=== PATIENT | female | born 1955 | race Caucasian/White ===

== ENCOUNTER → 2018-07-28 13:52 | Outpatient (CLI) | payer BC, SELFPAY ==
--- NOTE | 2018-07-28 13:59 | XR_ITS ---
XR DEXA axial skeleton HISTORY: ITS.REASON: POST MENOPAUSAL ORDERING PHYSICIAN: Tha Mai MD PATIENT AGE: 62 years COMPARISON: 02/27/2016 FINDINGS: The BMD measured at the Left femoral neck is 0.853 g/cm squared with a T score of -1.3. This is considered Osteopenic according to the World Health Organization criteria. Fracture risk is Moderate. Treatment is advised. L1 L4 density has a T score of -1.1 consistent with osteopenia. The lumbar density has increased by 0.6% in the hip density has increased by 2.7% compared to 02/27/2016. IMPRESSION: Osteopenia with moderate fracture risk. Treatment is advised. Recommend follow-up exam in 2 years
== END ==
PROVIDERS: PCP Internal Medicine Adolescent Medicine; Visit Provider Internal Medicine Adolescent Medicine
DX: Z13.820 Encounter for screening for osteoporosis (principal); M81.0 Age-related osteoporosis without current pathological fracture
CPT/HCPCS: 77080

== ENCOUNTER → 2020-02-12 09:18 | Outpatient (CLI) | payer BC, SELFPAY ==
--- NOTE | 2020-02-12 09:21 | XR_ITS ---
PROCEDURE: XR DEXA AXIAL SKELETON CLINICAL HISTORY: POST MENOPAUSAL COMPARISON: No exams were available for comparison FINDINGS: The right hip BMD is 0.709 with a t-score of -1.3. The left hip BMD is 0.651 with a t-score of -1.8. The lumbar spine BMD is 0.869 with a t-score of -1.6. IMPRESSION: This patient is considered osteopenic according to the World Health Organization criteria. Bone density is between 10 and 25 percent below young normal . Fracture risk is moderate. Treatment is advised. Based on these results of follow-up exam is recommended in 2 years Dictated by: Godwin Meadows MD 02/12/2020 22:18 Electronically signed by Godwin Meadows MD in [place] 02/13/2020 07:56
== END ==
PROVIDERS: PCP Internal Medicine Adolescent Medicine; Visit Provider Internal Medicine Adolescent Medicine
DX: Z13.820 Encounter for screening for osteoporosis (principal); Z78.0 Asymptomatic menopausal state
CPT/HCPCS: 77080

== ENCOUNTER → 2020-05-07 08:02 | Outpatient (POV) | payer BC, SELFPAY | PROVIDERS: Visit Provider Dermatology | DX: Z00.00 Encounter for general adult medical examination without abnormal findings (principal) ==

== ENCOUNTER 2021-03-21 19:41 | Emergency (ER) | payer BC, SELFPAY ==
[2021-03-21 19:53] VITALS: BP 132/57; PULSE 93; RESP 20; TEMP 36.9; O2SAT 98; BMI 27.9
[2021-03-21 20:00] VITALS: BP 129/71; PULSE 99; O2SAT 94
--- NOTE | 2021-03-21 20:17 | HMH.EDGENADL ---
ED Disposition Clinical Impression: Epistaxis Disposition: Home, Self-Care Condition on Discharge: Good Instructions: DI for Nosebleed Referrals: Tha Mai MD [Primary Care Provider] - - Critical Care Critical Care Time: No Attestation: On 03/21/21, the high probability of a clinically significant, sudden or life threatening deterioration of the following system(s) required my full and direct attention, intervention and personal management. The time I documented below is in addition to time spent performing reported procedures but includes the following listed in this critical care notation. Medical Decision Making - Marco Inquiry Pt receiving controlled substance: No Vital Signs: 03/21/21 19:53 03/21/21 20:00 03/21/21 20:29 Temperature 98.5 F Temperature Source Oral Pulse Rate 99 H 75 Pulse Rate [Right] 93 H Respiratory Rate 20 17 Blood Pressure 129/71 129/71 Blood Pressure [Right Arm] 132/57 L Blood Pressure Mean 92 Blood Pressure Mean [Right Arm] 82 Blood Pressure Source Automatic Cuff Blood Pressure Source [Right Arm] Automatic Cuff Blood Pressure Position Supine Blood Pressure Position [Right Arm] Sitting 02 Sat by Pulse Oximetry 98 94 L 95 Oxygen Delivery Method Room Air Room Air Orders (Tests/Meds): ED MEDICATIONS Discontinued Medications Generic Name Dose Route Start Last Admin Trade Name Freq PRN Reason Stop Dose Admin Oxymetazoline HCl 1 ml 03/21/21 20:05 03/21/21 20:07 Oxymetazoline Nasal [place] 0.05% 15ml NS 03/21/21 20:06 1 ml ONCE ONE Administration Medical Decision Narrative: This patient is a 65-year-old female who presents to the emergency department with epistaxis. Only medical problem is asthma he has never had a nosebleed in the past. Bleeding is easy to control with direct pressure. The patient is hemodynamically stable and well-appearing. She is protecting her airway. She was given 2 sprays of Afrin in each nostril. Served in the emergency department for about 1 hour. On reassessment she had no more bleeding and felt comfortable with discharge. She has been walking around. She was given Afrin to go home with and encouraged to use 2 more sprays before going to bed. She will follow-up with her primary care doctor tomorrow and was given return precautions if the bleeding returns. She lives near the hospital. General Adult HPI - General Chief complaint: Epistaxis Stated complaint: nose bleed 1914 Time Seen by Provider: 03/21/21 20:08 Mode of Arrival: Ambulatory Source of Information: Patient Limitations: No Limitations Description of Symptoms (Recalled from ER Triage Doc. by RN): Pt states she has had a sinus H/A all day and about 30 minutes ago her nose started bleeding and wouldn't stop. Pt denies blood thinners or trauma to her nose. - History of Present Illness HPI narrative: The patient is a 65-year-old female who presents to the emergency department with nosebleed for about 30 minutes. The patient reports she had a headache earlier in the day and was going to answer her phone when her nose started bleeding. She reports it originally was only bleeding in the left nostril and she now has blood coming from both nostrils. She reports that she has been holding pressure for about 30 minutes and it seems to have slowed down however she reports she has soaked 3 hand towels with blood and is now coughing up some blood clots. She has never had a nosebleed in the past and is not on blood thinners. Her only medical problem is asthma. Onset (ago): minute(s) (30) - Related Data Home Medications Medication Instructions Recorded Confirmed cetirizine 10 mg capsule 10 mg PO ONCE 11/25/17 10/09/18 duloxetine 60 mg capsule,delayed 60 mg PO ONCE 11/25/17 10/09/18 release montelukast 10 mg tablet 10 mg PO QPM 11/25/17 10/09/18 aspirin 81 mg tablet,delayed 81 mg PO DAILY 06/26/18 10/09/18 release calcium carb 300 mg-D
[2021-03-21 20:29] VITALS: BP 129/71; PULSE 75; RESP 17; O2SAT 95
[2021-03-21 20:49] VITALS: BP 109/63; PULSE 72; RESP 17; O2SAT 95
[2021-03-21 21:02] VITALS: BP 114/66; PULSE 70; RESP 18; TEMP 36.9; O2SAT 97
== END 2021-03-21 21:04 | disposition home or self-care (01) ==
PROVIDERS: Emergency Provider Emergency Medicine; PCP Internal Medicine Adolescent Medicine
DX: R04.0 Epistaxis (principal); J45.909 Unspecified asthma, uncomplicated; E78.5 Hyperlipidemia, unspecified; Z79.899 Other long term (current) drug therapy; Z88.0 Allergy status to penicillin
CPT/HCPCS: 99281

== ENCOUNTER 2021-03-22 12:49 | Emergency (ER) | payer BC, SELFPAY ==
[2021-03-22 12:49] VITALS: BP 126/78; PULSE 73; RESP 20; TEMP 36.8; O2SAT 99; BMI 27.9
--- NOTE | 2021-03-22 14:44 | HMH.EDUTC ---
[facility] [place] Clinical Impression: Epistaxis not due to trauma Disposition: Home, Self-Care Condition on Discharge: Good Instructions: DI for Nosebleed Additional Instructions: Bleeding is currently stopped. Can use Afrin again if needed. Be mindful of accidental nasal trauma Follow up with Dr Teresa next week. Referrals: Tha Mai MD [Primary Care Provider] - Jin Teresa MD [Staff Physician] - Time of Disposition: 15:00 Medical Decision Making - Marco Inquiry Pt receiving controlled substance: No Vital Signs: 03/22/21 12:49 Temperature 98.3 F Temperature Source Oral Pulse Rate [Left Radial] 73 Respiratory Rate 20 Blood Pressure [Right Arm] 126/78 Blood Pressure Mean [Right Arm] 94 Blood Pressure Source [Right Arm] Automatic Cuff Blood Pressure Position [Right Arm] Sitting 02 Sat by Pulse Oximetry 99 Oxygen Delivery Method Room Air [facility] [place] HPI - General Stated complaint: nose bleed Time Seen by Provider: 03/22/21 14:46 Mode of Arrival: Ambulatory Source of Information: Patient Limitations: No Limitations Description of Symptoms (Recalled from Triage Doc. by RN): C/O nose bleeds coming and going since yesterday. She did not get to see her family doc this morning as instructed by the ER last night. She had her last nose bleed this morning at 9:30 HEENT Symptoms (Recalled from RN notes): Yes (nose bleed) Resp Symptoms (Recalled from RN notes): No Skin Symptoms (Recalled from RN notes): No MS Symptoms (Recalled from RN notes): No Functional Status (Recalled from RN notes): wnl - History of Present Illness Provider Complaint: Patient had non traumatic nose bleed last night and was seen in the ER. Had 2 further episodes of nosebleeds. Last one around 0930 this am. She packed it. She has a mild headache. Wasn't sure if she could use Afrin again that she was sent home with last night. Onset (ago): day(s) (1) Location: face Relieving factors: none Exacerbating factors: none Associated symptoms: denies other symptoms Treatments prior to arrival: none - Related Data Home Medications Medication Instructions Recorded Confirmed cetirizine 10 mg capsule 10 mg PO ONCE 11/25/17 10/09/18 duloxetine 60 mg capsule,delayed 60 mg PO ONCE 11/25/17 10/09/18 release montelukast 10 mg tablet 10 mg PO QPM 11/25/17 10/09/18 aspirin 81 mg tablet,delayed 81 mg PO DAILY 06/26/18 10/09/18 release calcium carb 300 mg-D3 800 1 tab PO DAILY 06/26/18 10/09/18 unit-mag ox 25 mg-copier repair technician 0.5 mg-usman-Zn tablet hydrochlorothiazide 25 mg tablet PO 90 Days #90 tab 09/30/18 10/09/18 estradiol 10 mcg vaginal tablet VAGINAL 84 Days #24 tab 10/09/18 10/09/18 Previous Rx's Medication Instructions Recorded doxycycline hyclate 100 mg capsule 200 mg PO ONCE 7 Days #14 cap 06/26/18 evufnxscwtqunfq-yglmbfilpryavhu-FG 10 ml PO Q4-6H PRN #200 ml 09/30/18 2 mg-30 mg-10 mg/5 mL oral syrup levofloxacin 750 mg tablet 750 mg PO DAILY 5 Days #5 tab 09/30/18 methylprednisolone 4 mg tablets in See Rx Instructions PO PER PKG DIR 09/30/18 a dose pack #21 tab tuhqdvkictajfdd-mwvghgqeomztrhq-BY 10 ml PO Q4-6H PRN #240 ml 10/09/18 2 mg-30 mg-10 mg/5 mL oral syrup Allergies Allergy/AdvReac Type Severity Reaction Status Date / Time hydromorphone [From DILAUDID] Allergy Intermediate I-HIVES Verified 10/09/18 16:13 Penicillins [PENICILLINS] Allergy Intermediate I-RASH Verified 10/09/18 16:13 - Worker's Comp Is this a Worker's Comp case?: No [facility] History - Hepatitis A Screen Drug use history?: No High risk sexual behaviors?: No History of sexually transmitted infection?: No Currently employed?: No Childcare worker?: No Do you have indoor plumbing?: Yes Do you have electricity?: Yes Attestation statement:: This patient has been screened for Hepatitis A risk factors. I have reviewed the patient's past medical history: Yes Medical History: Reports:: Asthma, Hyperlipidemia Denies:: Cancer, Diabetes Prudence
[2021-03-22 15:02] VITALS: BP 126/78; PULSE 73; RESP 20; TEMP 36.8; O2SAT 99
== END 2021-03-22 15:07 | disposition home or self-care (01) ==
PROVIDERS: Emergency Provider Physician Assistant; PCP Internal Medicine Adolescent Medicine
DX: R04.0 Epistaxis (principal); J45.909 Unspecified asthma, uncomplicated; E78.5 Hyperlipidemia, unspecified; Z79.899 Other long term (current) drug therapy
CPT/HCPCS: 99202; G0463

== ENCOUNTER 2021-05-03 10:18 | Emergency (ER) | payer BC, SELFPAY ==
[2021-05-03 10:38] VITALS: BP 136/61; PULSE 102; RESP 16; TEMP 37.7; O2SAT 99; BMI 27.8
--- NOTE | 2021-05-03 11:22 | HMH.EDUTC ---
[facility] [place] Disposition Clinical Impression: Sinusitis Qualifiers: Sinusitis location: unspecified location Chronicity: acute Recurrence: non-recurrent Qualified Code(s): J01.90 - Acute sinusitis, unspecified Asthma Qualifiers: Asthma severity: unspecified severity Asthma persistence: unspecified Asthma complication type: unspecified Qualified Code(s): J45.909 - Unspecified asthma, uncomplicated Disposition: Home, Self-Care Condition on Discharge: Good Instructions: DI for Sinusitis, Sinus Headache, Sinusitis Additional Instructions: Drink plenty of fluids. Take tylenol or ibuprofen for pain or fever. Take the medications as directed. Follow up with your regular doctor. GO TO THE ER FOR ANY WORSENING SYMPTOMS Prescriptions: levoFLOXacin [Levaquin 500mg tab] 500 mg PO DAILY 14 Days #14 tab Transmission Status: Received by [facility] Referrals: Tha Mai MD [Primary Care Provider] - Time of Disposition: 11:26 Medical Decision Making - Medical Records Medical records reviewed: No: I reviewed the patient's medical records. - Marco Inquiry Pt receiving controlled substance: No Vital Signs: 05/03/21 10:38 05/03/21 11:31 Temperature 99.8 F H 99.8 F H Temperature Source Oral Oral Pulse Rate 102 H Pulse Rate [Apical] 102 H Respiratory Rate 16 16 Blood Pressure 136/61 Blood Pressure [Right Arm] 136/61 Blood Pressure Mean [Right Arm] 86 Blood Pressure Source Automatic Cuff Blood Pressure Source [Right Arm] Automatic Cuff Blood Pressure Position Sitting Blood Pressure Position [Right Arm] Sitting 02 Sat by Pulse Oximetry 99 Oxygen Delivery Method Room Air Room Air - Lab Data Lab results reviewed: Yes: I reviewed the patient's lab results. Orders (Tests/Meds): ED MEDICATIONS Discontinued Medications Generic Name Dose Route Start Last Admin Trade Name Freq PRN Reason Stop Dose Admin Methylprednisolone Sodium Succinate 125 mg 05/03/21 11:02 05/03/21 11:07 Methylprednisolone Sod Succ 125mg Vial IM 05/03/21 11:03 125 mg ONCE ONE Administration [facility] [place] HPI - General Stated complaint: headache, fever Time Seen by Provider: 05/03/21 10:40 Mode of Arrival: Ambulatory Source of Information: Patient Limitations: No Limitations Description of Symptoms (Recalled from Triage Doc. by RN): fever, chills, headache, bodyaches, nasal drainage, cough HEENT Symptoms (Recalled from RN notes): No Resp Symptoms (Recalled from RN notes): Yes Skin Symptoms (Recalled from RN notes): No MS Symptoms (Recalled from RN notes): No Functional Status (Recalled from RN notes): na - History of Present Illness Provider Complaint: She has a history of asthma. She states that over the past 2 days, she has been getting congested in her sinuses. It is beginning to get into her chest now. She gets very sick once she gets congested in her chest, so she is here to discuss a plan to prevent this. She usually has to take levaquin for 14 days to clear up her symptoms once they have started. She denies any possible covid exposure. She refuses a covid or viral swab today. - Related Data Home Medications Medication Instructions Recorded Confirmed cetirizine 10 mg capsule 10 mg PO ONCE 11/25/17 10/09/18 duloxetine 60 mg capsule,delayed 60 mg PO ONCE 11/25/17 10/09/18 release montelukast 10 mg tablet 10 mg PO QPM 11/25/17 10/09/18 aspirin 81 mg tablet,delayed 81 mg PO DAILY 06/26/18 10/09/18 release calcium carb 300 mg-D3 800 1 tab PO DAILY 06/26/18 10/09/18 unit-mag ox 25 mg-gyroscopic instrument tester 0.5 mg-usman-Zn tablet hydrochlorothiazide 25 mg tablet PO 90 Days #90 tab 09/30/18 10/09/18 estradiol 10 mcg vaginal tablet VAGINAL 84 Days #24 tab 10/09/18 10/09/18 Previous Rx's Medication Instructions Recorded doxycycline hyclate 100 mg capsule 200 mg PO ONCE 7 Days #14 cap 06/26/18 clovgloqmalcdsi-yoybpwzjaozclwc-PM 10 ml PO Q4-6H PRN #200 ml 09/30/18 2 mg-30 mg-10 mg/5 mL oral syrup
[2021-05-03 11:31] VITALS: BP 136/61; PULSE 102; RESP 16; TEMP 37.7; O2SAT 99
== END 2021-05-03 11:33 | disposition home or self-care (01) ==
PROVIDERS: Emergency Provider Nurse Practitioner Family; PCP Internal Medicine Adolescent Medicine
DX: J01.90 Acute sinusitis, unspecified (principal); J45.909 Unspecified asthma, uncomplicated; Z79.899 Other long term (current) drug therapy; Z88.6 Allergy status to analgesic agent
CPT/HCPCS: 96372; 99202; G0463

== ENCOUNTER → 2021-08-07 09:14 | Outpatient (CLI) | payer MEDICARE, BC, SELFPAY ==
--- NOTE | 2021-08-07 09:31 | XR_ITS ---
PROCEDURE: XR DEXA AXIAL SKELETON CLINICAL HISTORY: POST MENOPAUSAL COMPARISON: CR DEXAAX XR DEXA axial skeleton from 07/28/2018 FINDINGS: The right hip BMD is 0.757 with a T-score of -0.8. The left hip BMD is 0.690 with a T-score of -1.4. The lumbar spine BMD is 0.914 with a T-score of -1.2. Previously the lowest density was in the left femoral neck with a T-score of -1.3 IMPRESSION: This patient is considered osteopenic according to the World Health Organization criteria. Bone density is between 10 and 25 percent below young normal. Fracture risk is moderate. Treatment is advised. Based on these results a follow-up exam is recommended in 2 year. Dictated by: Godwin Meadows MD 08/08/2021 09:46 Godwin Meadows MD in [place] 08/08/2021 09:46
== END ==
PROVIDERS: PCP Internal Medicine Adolescent Medicine; Visit Provider Internal Medicine Adolescent Medicine
DX: M81.0 Age-related osteoporosis without current pathological fracture (principal)
CPT/HCPCS: 77080

== ENCOUNTER 2021-08-15 10:03 | Emergency (ER) | payer MEDICARE, BC, SELFPAY ==
[2021-08-15 10:20] VITALS: BP 108/70; PULSE 74; RESP 19; TEMP 36.9; O2SAT 96; BMI 27.3
--- NOTE | 2021-08-15 10:48 | HMH.EDUTC ---
[facility] [place] Impression: Asthma exacerbation Qualifiers: Asthma severity: unspecified severity Asthma persistence: unspecified Qualified Code(s): J45.901 - Unspecified asthma with (acute) exacerbation Disposition: Home, Self-Care Condition on Discharge: Good Instructions: DI for Asthma -- Adult, Ceftriaxone Injection Additional Instructions: Drink plenty of fluids. Take tylenol or ibuprofen for pain or fever. Take the medications as directed. Follow up with your regular doctor. GO TO THE ER FOR ANY WORSENING SYMPTOMS Quarantine until you know the results of your covid-19 test. If it is positive, the health department should call you and give you further instructions about your length of Quarantine and other things. Notify your school or workplace of your results and follow their instructions regarding return to work/school. The cough medication (promethazine dm) will make you drowsy, so don't drive or operate heavy machinery after taking it. Prescriptions: Promethazine/Dextromethorphan [Promethazine-Dm Syrup] 5 ml PO Q6HP PRN #240 ml PRN Reason: Cough Transmission Status: Received by [facility] levoFLOXacin [Levaquin 500mg tab] 500 mg PO DAILY #7 tab Transmission Status: Received by [facility] Referrals: Tha Mai MD [Primary Care Provider] - Medical Decision Making - Medical Records Medical records reviewed: No: I reviewed the patient's medical records. - Marco Inquiry Pt receiving controlled substance: No Vital Signs: 08/15/21 10:20 08/15/21 11:17 Temperature 98.4 F 98.4 F Temperature Source Oral Pulse Rate 74 Pulse Rate [Right Brachial] 74 Respiratory Rate 19 19 Blood Pressure 108/70 L Blood Pressure [Right Arm] 108/70 L Blood Pressure Mean [Right Arm] 82 Blood Pressure Source [Right Arm] Automatic Cuff Blood Pressure Position [Right Arm] Sitting 02 Sat by Pulse Oximetry 96 Oxygen Delivery Method Room Air - Lab Data Lab results reviewed: Yes: I reviewed the patient's lab results. Orders (Tests/Meds): ED MEDICATIONS Discontinued Medications Generic Name Dose Route Start Last Admin Trade Name Freq PRN Reason Stop Dose Admin Ceftriaxone Sodium 1 gm 08/15/21 10:59 08/15/21 11:10 Ceftriaxone 1gm Vial IM 08/15/21 11:00 1 gm ONCE ONE Administration Lidocaine HCl 0 ml 08/15/21 10:59 08/15/21 11:10 Lidocaine 1% 5ml Pf Vial IM 08/15/21 11:00 2 ml ONCE ONE Administration [facility] [place] - General Stated complaint: congestion, soz, sore throat, cough Time Seen by Provider: 08/15/21 10:48 Mode of Arrival: Ambulatory Source of Information: Patient Limitations: No Limitations Description of Symptoms (Recalled from Triage Doc. by RN): PATIENT C/O PRODUCTIVE COUGH WITH THICK GREEN SPUTUM SINCE WEDNESDAY HEENT Symptoms (Recalled from RN notes): No Resp Symptoms (Recalled from RN notes): Yes Skin Symptoms (Recalled from RN notes): No MS Symptoms (Recalled from RN notes): No Functional Status (Recalled from RN notes): WNL - History of Present Illness Provider Complaint: She states that for the past 3 days she has been getting worsening chest congestion with greenish sputum. She has a history of presistent asthma. She is followed by pulmonology at [facility]. She denies any fever. She has been fully vaccinated for covid-19 and influenza. She has started prednisone 20 mg po that she has at home for flare ups like this. - Related Data Home Medications Medication Instructions Recorded Confirmed cetirizine 10 mg capsule 10 mg PO ONCE 11/25/17 10/09/18 duloxetine 60 mg capsule,delayed 60 mg PO ONCE 11/25/17 10/09/18 release montelukast 10 mg tablet 10 mg PO QPM 11/25/17 10/09/18 aspirin 81 mg tablet,delayed 81 mg PO DAILY 06/26/18 10/09/18 release calcium carb 300 mg-D3 800 1 tab PO DAILY 06/26/18 10/09/18 unit-mag ox 25 mg-photocopying equipment repairer 0.5 mg-usman-Zn tablet hydrochlorothiazide 25 mg tablet PO 9
[2021-08-15 11:17] VITALS: BP 108/70; PULSE 74; RESP 19; TEMP 36.9; O2SAT 96
== END 2021-08-15 11:25 | disposition home or self-care (01) ==
PROVIDERS: Emergency Provider Nurse Practitioner Family; PCP Internal Medicine Adolescent Medicine
DX: J45.901 Unspecified asthma with (acute) exacerbation (principal); E78.5 Hyperlipidemia, unspecified; Z79.899 Other long term (current) drug therapy
CPT/HCPCS: G0463; 96372; 99202; C9803; U0003; U0005

== ENCOUNTER 2022-04-12 11:42 | Emergency (ER) | payer MEDICARE, OTHER, SELFPAY ==
[2022-04-12 13:05] VITALS: BP 127/64; PULSE 100; RESP 17; TEMP 37.6; O2SAT 96; BMI 28.3
[2022-04-12 13:13] LABS: UTC Strep Screen (Rapid) Negative (Negative)
--- NOTE | 2022-04-12 13:13 | EXP.UTC ---
Discharge Plan Disposition Patient Disposition: Home, Self-Care Condition: Good Prescriptions Prescriptions: New benzonatate [benzonatate] 100 mg capsule 100 mg PO TIDP PRN (Reason: Cough) Qty: 30 0RF methylprednisolone 4 mg Tablets,Dose Pack 4 mg PO DIRECTED Qty: 21 0RF azithromycin [Zithromax] 250 mg tablet 250 mg PO UD DOSE PK Qty: 6 0RF Rx Instructions: Take two (2) tablets today, then one (1) tablet days #2 thru #5 No Action hydrochlorothiazide 25 mg tablet PO 90 Days Qty: 90 levofloxacin 750 mg tablet 750 mg PO DAILY 5 Days Qty: 5 0RF methylprednisolone [Medrol (Joseph)] 4 mg tablets,dose pack See Rx Instructions PO PER PKG DIR Qty: 21 0RF Dose Instruction: PO PER PKG DIR Rx Instructions: PO PER PKG DIR zirrnbslmwhtkqh-cvtfyrbpo-VU 2-30-10 mg/5 mL syrup 10 ml PO Q4-6H PRN (Reason: cold symptoms) Qty: 200 0RF estradiol 10 mcg tablet VAGINAL 84 Days Qty: 24 fcsmlsrevqmnfwb-fdnqixnaz-ZL 2-30-10 mg/5 mL syrup 10 ml PO Q4-6H PRN (Reason: allergy symptoms) Qty: 240 0RF cetirizine [Zyrtec] 10 mg capsule 10 mg PO ONCE montelukast [Singulair] 10 mg tablet 10 mg PO QPM duloxetine [Cymbalta] 60 mg capsule,delayed release(DR/EC) 60 mg PO ONCE aspirin [Adult Low Dose Aspirin] 81 mg tablet,delayed release (DR/EC) 81 mg PO DAILY Caltrate + D3 Plus Minerals 300 mg-800 unit -25 mg-0.5 mg tablet 1 tab PO DAILY doxycycline hyclate 100 mg capsule 200 mg PO ONCE 7 Days Qty: 14 0RF levofloxacin 500 MG tablet 500 mg PO DAILY 14 Days Qty: 14 0RF promethazine-DM 120 ML syrup 5 ml PO Q6HP PRN (Reason: Cough) Qty: 240 0RF levofloxacin 500 MG tablet 500 mg PO DAILY Qty: 7 0RF Referrals Follow up/Referrals: Tha Mai MD [Primary Care Provider] - See instructions Activity Restrictions/Add. Instructions Additional Instructions/Restrictions: Drink plenty of fluids. Take tylenol or ibuprofen for pain or fever. Take the medications as directed. Follow up with your regular doctor. GO TO THE ER FOR ANY WORSENING SYMPTOMS Quarantine until you know the results of your covid-19 test. Notify your school or workplace of your results and follow their instructions regarding return to work/school. Clinical Impressions Clinical Impression: Asthma exacerbation, Acute viral syndrome, Close exposure to COVID-19 virus Instructions Patient Instructions: Asthma -- Adult, DI for Pharyngitis/Tonsillopharyngitis -- Adult, Preventing the Spread of Coronavirus Discharge Instructions Discharge ED Provider: Tito Diallo [facility] [place] General Stated complaint: sore throat,runny nose,low grade fever Mode of Arrival: Ambulatory Source of Information: Patient Limitations: No Limitations Time Seen by Provider: 04/12/22 13:12 Description of Symptoms (Recalled from Triage Doc. by RN): pt c/o sore throat, fever, chest congestion, cough, nasal drainage, headache. symptoms ongoing for 3 days HEENT Symptoms (Recalled from RN notes): Yes Resp Symptoms (Recalled from RN notes): Yes Skin Symptoms (Recalled from RN notes): No MS Symptoms (Recalled from RN notes): No Functional Status (Recalled from RN notes): n/a History of Present Illness Provider Complaint: He states that for the past 2 days she has had sore throat, chills, body aches, and a cough. She has a history of copd and asthma. She denies any chest pain. She has had a temp of 100.5 at its highest. Related Data Home Medications Medication Instructions Recorded Confirmed cetirizine 10 mg capsule (Zyrtec) 10 mg PO ONCE 11/25/17 10/09/18 duloxetine 60 mg capsule,delayed 60 mg PO ONCE 11/25/17 10/09/18 release (Cymbalta) montelukast 10 mg tablet 10 mg PO QPM 11/25/17 10/09/18 (Singulair) aspirin 81 mg tablet,delayed 81 mg PO DAILY 06/26/18 10/09/18 release (Adult Low Dose Aspirin) calcium carb 300 mg-D3 800 1 tab PO DAILY 06/26/18 10/09/18 unit-mag
[2022-04-12 13:30] VITALS: BP 127/64; PULSE 85; RESP 17; TEMP 37.2
== END 2022-04-12 13:31 | disposition home or self-care (01) ==
PROVIDERS: Emergency Provider Nurse Practitioner Family; PCP Internal Medicine Adolescent Medicine
DX: J45.901 Unspecified asthma with (acute) exacerbation (principal); J02.9 Acute pharyngitis, unspecified; R50.9 Fever, unspecified; R51.9 Headache, unspecified; R11.0 Nausea; R09.89 Other specified symptoms and signs involving the circulatory and respiratory systems; Z20.822 Contact with and (suspected) exposure to COVID-19; Z79.52 Long term (current) use of systemic steroids; Z79.82 Long term (current) use of aspirin; Z79.899 Other long term (current) drug therapy; Z88.5 Allergy status to narcotic agent; Z88.6 Allergy status to analgesic agent
CPT/HCPCS: 87880; 99213; C9803; G0463; U0003; U0005

== ENCOUNTER 2022-05-22 09:47 | Outpatient (CLI) | payer MEDICARE, OTHER, SELFPAY ==
[2022-05-22 10:20] VITALS: BP 133/81; PULSE 80; RESP 18; O2SAT 96
== END 2022-05-22 10:20 | disposition home or self-care (01) ==
LOC: INF 09:50
PROVIDERS: PCP Internal Medicine Adolescent Medicine; Visit Provider Student in an Organized Health Care Education/Training Program
DX: J45.50 Severe persistent asthma, uncomplicated (principal)
CPT/HCPCS: 96372; J0517

== ENCOUNTER 2022-07-01 19:18 | Emergency (ER) | payer MEDICARE, OTHER, SELFPAY ==
[2022-07-01 20:30] VITALS: BP 126/61; PULSE 81; RESP 16; TEMP 36.6; O2SAT 97; BMI 27.3
--- NOTE | 2022-07-01 21:44 | HMH.EDWNDL ---
Discharge Plan Disposition Patient Disposition: Home, Self-Care Chief Complaint: Wound/Laceration Prescriptions Prescriptions: No Action hydrochlorothiazide 25 mg tablet PO 90 Days Qty: 90 estradiol 10 mcg tablet VAGINAL 84 Days Qty: 24 cetirizine [Zyrtec] 10 mg capsule 10 mg PO ONCE montelukast [Singulair] 10 mg tablet 10 mg PO QPM duloxetine [Cymbalta] 60 mg capsule,delayed release(DR/EC) 60 mg PO ONCE aspirin [Adult Low Dose Aspirin] 81 mg tablet,delayed release (DR/EC) 81 mg PO DAILY Caltrate + D3 Plus Minerals 300 mg-800 unit -25 mg-0.5 mg tablet 1 tab PO DAILY doxycycline hyclate 100 mg capsule 200 mg PO ONCE 7 Days Qty: 14 0RF Referrals Follow up/Referrals: Tha Mai MD [Primary Care Provider] - See instructions Clinical Impressions Clinical Impression: Laceration of hand Instructions Patient Instructions: DI for Laceration Repair Discharge ED Provider: Domo Dewey Wound/Laceration HPI General Chief Complaint: Wound/Laceration Stated Complaint: AO 06/21 @1900 @HOME LAC R HAND Time Seen by Provider: 07/01/22 21:45 Mode of Arrival: Ambulatory Source of Information: Patient and Medical Record Limitations: No Limitations Description of Symptoms (Recalled from ER Triage Doc. by RN): pt states reached in metal rack to grab dish and cut rt index finger. pt has laceration to rt index finger. History of Present Illness HPI narrative: acute rt hand lac tonight Onset (ago): hour(s) Extremity Location: Right: hand Place: home Patient tetanus UTD: No Context: accidental Associated symptoms: none Related Data Home Medications Medication Instructions Recorded Confirmed cetirizine 10 mg capsule (Zyrtec) 10 mg PO ONCE 11/25/17 10/09/18 duloxetine 60 mg capsule,delayed 60 mg PO ONCE 11/25/17 10/09/18 release (Cymbalta) montelukast 10 mg tablet 10 mg PO QPM 11/25/17 10/09/18 (Singulair) aspirin 81 mg tablet,delayed 81 mg PO DAILY 06/26/18 10/09/18 release (Adult Low Dose Aspirin) calcium carb 300 mg-D3 800 1 tab PO DAILY 06/26/18 10/09/18 unit-mag ox 25 mg-endoscopy support specialist 0.5 mg-suman-Zn tablet (Caltrate + D3 Plus Minerals) hydrochlorothiazide 25 mg tablet PO 90 days #90 tabs 09/30/18 10/09/18 estradiol 10 mcg vaginal tablet vaginal 84 days #24 tabs 10/09/18 10/09/18 Previous Rx's Medication Instructions Recorded doxycycline hyclate 100 mg capsule 200 mg PO ONCE sinusitis 7 days 06/26/18 #14 caps Allergies Allergy/AdvReac Type Severity Reaction Status Date / Time hydromorphone [From DILAUDID] Allergy Intermediate I-HIVES Verified 04/12/22 13:10 [facility] Medical History (Updated 07/02/22 @ 01:33 by Domo Dewey MD) Allergies Asthma Depression Hypertension Social History (Updated 05/22/22 @ 11:06 by Selena Nguyen RN) Smoking Status: Never smoker alcohol intake: never substance use type: denies use current occupational status: employed Travel in the last 8 weeks: None household members: family housing: house ROS Obtained: Yes All systems reviewed & no additional complaints except as documented Physical Exam General General appearance: alert Head Head exam: normocephalic Eye Eye exam: Present PERRL and EOMI ENT ENT exam: Present mucous membranes moist Neck Neck exam: Present trachea midline Respiratory Respiratory exam: Absent respiratory distress Cardiovascular Cardiovascular exam: Present regular rate Abdominal Exam Abdominal exam: Present soft Extremities Exam Extremities exam: Present full ROM Neurological Exam Neurological exam: Present alert, oriented X3 and CN II-XII intact Psychiatric Psychiatric exam: Present normal affect Skin Skin exam: Present other (2 cm lac dorsum of rt hand with no fb and tendon ok and neurovascular ok ); Absent rash Medical Decision Making Medical Records Medical records reviewed: Yes I reviewed the patient's medical records. Ramon
[2022-07-01 22:33] VITALS: BP 131/70; PULSE 81; RESP 16; TEMP 36.6; O2SAT 97
== END 2022-07-02 01:33 | disposition home or self-care (01) ==
PROVIDERS: Emergency Provider Emergency Medicine; PCP Internal Medicine Adolescent Medicine
DX: S61.210A Laceration without foreign body of right index finger without damage to nail, initial encounter (principal); I10 Essential (primary) hypertension; J45.909 Unspecified asthma, uncomplicated; F17.200 Nicotine dependence, unspecified, uncomplicated; Z79.82 Long term (current) use of aspirin; Z79.890 Hormone replacement therapy; Z79.899 Other long term (current) drug therapy; Z88.5 Allergy status to narcotic agent; W26.8XXA Contact with other sharp object(s), not elsewhere classified, initial encounter
CPT/HCPCS: 12001; 90471; 90715; 99284

== ENCOUNTER 2022-07-11 08:50 | Emergency (ER) | payer MEDICARE, OTHER, SELFPAY ==
[2022-07-11 09:50] VITALS: BP 113/70; PULSE 76; RESP 18; TEMP 36.6; O2SAT 99; BMI 24.3
[2022-07-11 10:00] VITALS: BP 113/70; PULSE 76; RESP 18; TEMP 36.6; O2SAT 99
== END 2022-07-11 10:05 | disposition home or self-care (01) ==
PROVIDERS: Emergency Provider Nurse Practitioner; PCP Internal Medicine Adolescent Medicine
DX: Z48.02 Encounter for removal of sutures (principal)

== ENCOUNTER 2022-07-17 10:04 | Outpatient (CLI) | payer MEDICARE, OTHER, SELFPAY ==
[2022-07-17 10:25] VITALS: BP 116/63; PULSE 73; RESP 16; O2SAT 97
== END 2022-07-17 10:35 | disposition home or self-care (01) ==
LOC: INF 10:05
PROVIDERS: PCP Internal Medicine Adolescent Medicine; Visit Provider Student in an Organized Health Care Education/Training Program
DX: J45.50 Severe persistent asthma, uncomplicated (principal)
CPT/HCPCS: 96372; J0517

== ENCOUNTER 2022-09-11 09:45 | Outpatient (CLI) | payer MEDICARE, OTHER, SELFPAY ==
[2022-09-11 09:58] VITALS: BP 127/59; PULSE 88; RESP 18; TEMP 36.1; O2SAT 99
== END 2022-09-11 09:58 | disposition home or self-care (01) ==
LOC: INF 09:45
PROVIDERS: PCP Internal Medicine Adolescent Medicine; Visit Provider Student in an Organized Health Care Education/Training Program
DX: J45.50 Severe persistent asthma, uncomplicated (principal)
CPT/HCPCS: 96372; J0517

== ENCOUNTER 2022-11-06 08:58 | Outpatient (CLI) | payer MEDICARE, OTHER, SELFPAY ==
[2022-11-06 09:15] VITALS: BP 118/70; PULSE 72; RESP 18; O2SAT 97
== END 2022-11-06 09:30 | disposition home or self-care (01) ==
LOC: INF 08:59
PROVIDERS: PCP Internal Medicine Adolescent Medicine; Visit Provider Student in an Organized Health Care Education/Training Program
DX: J45.50 Severe persistent asthma, uncomplicated (principal)
CPT/HCPCS: 96372; J0517

== ENCOUNTER 2022-12-29 09:25 | Outpatient (CLI) | payer MEDICARE, OTHER, SELFPAY ==
[2022-12-29 09:40] VITALS: BP 122/70; PULSE 69; RESP 18; TEMP 36.8; O2SAT 96
== END 2022-12-29 09:40 | disposition home or self-care (01) ==
LOC: INF 09:26
PROVIDERS: PCP Internal Medicine Adolescent Medicine; Visit Provider Internal Medicine Medical Oncology
DX: J45.50 Severe persistent asthma, uncomplicated (principal)
CPT/HCPCS: 96372; J0517

== ENCOUNTER 2023-01-11 09:54 | Emergency (ER) | payer MEDICARE, OTHER, SELFPAY ==
--- NOTE | 2023-01-11 10:51 | EXP.UTC ---
Discharge Plan Disposition Patient Disposition: Home, Self-Care Condition: Good Prescriptions Prescriptions: New prednisone 10 mg tablet 10 mg PO DIRECTED 9 Days Qty: 12 0RF Rx Instructions: Take 2 tablets daily for 3 days, then take 1 tablets daily for 3 days, then take 1/2 tablet daily for 3 days, then stop. benzonatate [benzonatate] 100 mg capsule 100 mg PO TIDP PRN (Reason: Cough) Qty: 30 0RF levofloxacin [levofloxacin] 500 mg tablet 500 mg PO DAILY Qty: 7 0RF No Action hydrochlorothiazide 25 mg tablet 25 mg PO DAILY 90 Days Qty: 90 estradiol 10 mcg tablet 10 mcg VAGINAL NEEDED PRN (Reason: HORMONE) 84 Days Qty: 24 cetirizine [Zyrtec] 10 mg capsule 10 mg PO DAILY montelukast [Singulair] 10 mg tablet 10 mg PO QPM duloxetine [Cymbalta] 60 mg capsule,delayed release(DR/EC) 60 mg PO DAILY aspirin [Adult Low Dose Aspirin] 81 mg tablet,delayed release (DR/EC) 81 mg PO DAILY Caltrate + D3 Plus Minerals 300 mg-800 unit -25 mg-0.5 mg tablet 1 tab PO DAILY Referrals Follow up/Referrals: Tha Mai MD [Primary Care Provider] - See instructions Activity Restrictions/Add. Instructions Additional Instructions/Restrictions: Try to identify and avoid contact with the offending substance. Don't start the oral steroids until tomorrow. Follow up with your regular doctor. GO TO THE ER FOR ANY WORSENING SYMPTOMS OR CONCERNS Take tylenol for pain or fever. Take the medications as directed. Follow up with your regular doctor. GO TO THE ER FOR ANY WORSENING SYMPTOMS Clinical Impressions Clinical Impression: Sinusitis, COPD exacerbation, Poison gilberto Instructions Patient Instructions: Sinusitis, Contact Dermatitis, DI for Sinusitis, DI for Contact Dermatitis Discharge ED Provider: Tito Diallo [facility] [place] General Stated complaint: possible poison gilberto on Lt arm, congestion, BONILLA Time Seen by Provider: 01/11/23 10:51 History of Present Illness Provider Complaint: She states that for the past 4 days she has had a rash on her bilateral arms and face. She has had sinus congestion and left ear pain also. Related Data Home Medications Medication Instructions Recorded Confirmed cetirizine 10 mg capsule (Zyrtec) 10 mg PO DAILY ALLERGIES 11/25/17 01/11/23 duloxetine 60 mg capsule,delayed 60 mg PO DAILY DEPRESSION 11/25/17 01/11/23 release (Cymbalta) montelukast 10 mg tablet 10 mg PO QPM ALLERGIES 11/25/17 01/11/23 (Singulair) aspirin 81 mg tablet,delayed 81 mg PO DAILY Heart disease 06/26/18 01/11/23 release (Adult Low Dose Aspirin) calcium carb 300 mg-D3 800 1 tab PO DAILY Osteoporosis 06/26/18 01/11/23 unit-mag ox 25 mg-spectroscopist 0.5 mg-usman-Zn tablet (Caltrate + D3 Plus Minerals) hydrochlorothiazide 25 mg tablet 25 mg PO DAILY ALLERGIES 90 days 09/30/18 01/11/23 #90 tabs estradiol 10 mcg vaginal tablet 10 mcg vaginal NEEDED PRN 10/09/18 01/11/23 HORMONE 84 days #24 tabs Previous Rx's Medication Instructions Recorded benzonatate 100 mg capsule 100 mg PO TIDP PRN Cough #30 caps 01/11/23 levofloxacin 500 mg tablet 500 mg PO DAILY #7 tabs 01/11/23 prednisone 10 mg tablet 10 mg PO DIRECTED 9 days #12 01/11/23 tabs Allergies Allergy/AdvReac Type Severity Reaction Status Date / Time hydromorphone [From DILAUDID] Allergy Intermediate I-HIVES Verified 01/11/23 10:55 [facility] Disclaimer: The information contained in this section may have been updated after the patient was seen, as this information can be updated by other users. Medical History Allergies Asthma COPD (chronic obstructive pulmonary disease) Depression Hyperlipidemia Hypertension Surgical History History of cholecystectomy History of hysterectomy Social History Smo
[2023-01-11 10:57] VITALS: BP 143/72; PULSE 58; RESP 17; TEMP 36.8; O2SAT 98; BMI 26.2
[2023-01-11 11:39] VITALS: BP 142/72; PULSE 58; RESP 16; TEMP 36.8; O2SAT 98
== END 2023-01-11 11:41 | disposition home or self-care (01) ==
PROVIDERS: Emergency Provider Nurse Practitioner Family; PCP Internal Medicine Adolescent Medicine
DX: J01.90 Acute sinusitis, unspecified (principal); J44.1 Chronic obstructive pulmonary disease with (acute) exacerbation; L23.7 Allergic contact dermatitis due to plants, except food; F32.9 Major depressive disorder, single episode, unspecified; I10 Essential (primary) hypertension; E78.5 Hyperlipidemia, unspecified; W60.XXXA Contact with nonvenomous plant thorns and spines and sharp leaves, initial encounter
CPT/HCPCS: 96372; 99212; 99214; G0463

== ENCOUNTER 2023-02-25 09:06 | Outpatient (CLI) | payer MEDICARE, OTHER, SELFPAY ==
[2023-02-25 09:15] VITALS: BP 106/65; PULSE 65; RESP 18; O2SAT 98
== END 2023-02-25 09:21 | disposition home or self-care (01) ==
LOC: INF 09:07
PROVIDERS: PCP Internal Medicine Adolescent Medicine; Visit Provider Student in an Organized Health Care Education/Training Program
DX: J45.909 Unspecified asthma, uncomplicated (principal)
CPT/HCPCS: 96372; J0517

== ENCOUNTER 2023-04-22 09:11 | Outpatient (CLI) | payer MEDICARE, OTHER, SELFPAY ==
[2023-04-22 09:25] VITALS: BP 123/69; PULSE 76; RESP 18; TEMP 36.4; O2SAT 98
== END 2023-04-22 09:25 | disposition home or self-care (01) ==
LOC: INF 09:13
PROVIDERS: PCP Internal Medicine Adolescent Medicine; Visit Provider Student in an Organized Health Care Education/Training Program
DX: J45.50 Severe persistent asthma, uncomplicated (principal)
CPT/HCPCS: 96372; J0517

== ENCOUNTER 2023-05-28 09:27 | Emergency (ER) | payer MEDICARE, OTHER, SELFPAY ==
[2023-05-28 10:00] VITALS: BP 120/58; PULSE 62; RESP 18; TEMP 37.4; O2SAT 98; BMI 24.0
--- NOTE | 2023-05-28 10:09 | EXP.UTC ---
Discharge Plan Disposition Patient Disposition: Home, Self-Care Condition: Good Prescriptions Prescriptions: New benzonatate [benzonatate] 100 mg capsule 100 mg PO TIDP PRN (Reason: Cough) Qty: 30 0RF levofloxacin [levofloxacin] 500 mg tablet 500 mg PO DAILY Qty: 7 0RF methylprednisolone 4 mg Tablets,Dose Pack 4 mg PO DIRECTED Qty: 21 0RF No Action hydrochlorothiazide 25 mg tablet 25 mg PO DAILY 90 Days Qty: 90 estradiol 10 mcg tablet 10 mcg VAGINAL NEEDED PRN (Reason: HORMONE) 84 Days Qty: 24 cetirizine [Zyrtec] 10 mg capsule 10 mg PO DAILY montelukast [Singulair] 10 mg tablet 10 mg PO QPM duloxetine [Cymbalta] 60 mg capsule,delayed release(DR/EC) 60 mg PO DAILY aspirin [Adult Low Dose Aspirin] 81 mg tablet,delayed release (DR/EC) 81 mg PO DAILY Caltrate-D3 Plus Minerals 300 mg-800 unit -25 mg-0.5 mg tablet 1 tab PO DAILY benzonatate [benzonatate] 100 mg capsule 100 mg PO TIDP PRN (Reason: Cough) Qty: 30 0RF Referrals Follow up/Referrals: Tha Mai MD [Primary Care Provider] - See instructions Activity Restrictions/Add. Instructions Additional Instructions/Restrictions: Drink plenty of fluids. Take tylenol or ibuprofen for pain or fever. Take the medications as directed. Follow up with your regular doctor. GO TO THE ER FOR ANY WORSENING SYMPTOMS Don't start the oral steroids until tomorrow, since you had the shot here today. Clinical Impressions Clinical Impression: Sinusitis Instructions Patient Instructions: Sinusitis, DI for Sinusitis Discharge ED Provider: Tito Diallo [facility] General Stated complaint: lose of voice, chills, sore throat, chest congesti Time Seen by Provider: 05/28/23 10:09 History of Present Illness Provider Complaint: She states that for the past 2 days she has had sinus congestion and drainage. Related Data Home Medications Medication Instructions Recorded Confirmed cetirizine 10 mg capsule (Zyrtec) 10 mg PO DAILY ALLERGIES 11/25/17 02/25/23 duloxetine 60 mg capsule,delayed 60 mg PO DAILY DEPRESSION 11/25/17 02/25/23 release (Cymbalta) montelukast 10 mg tablet 10 mg PO QPM ALLERGIES 11/25/17 02/25/23 (Singulair) aspirin 81 mg tablet,delayed 81 mg PO DAILY Heart disease 06/26/18 02/25/23 release (Adult Low Dose Aspirin) calcium carb 300 mg-D3 20 mcg-mag 1 tab PO DAILY Osteoporosis 06/26/18 02/25/23 ox 25 mg-surgical endoscopist 0.5 [id number]-odgq-qeyh tablet (Caltrate-D3 Plus Minerals) hydrochlorothiazide 25 mg tablet 25 mg PO DAILY High Blood Pressure 09/30/18 02/25/23 90 days #90 tabs estradiol 10 mcg vaginal tablet 10 mcg vaginal NEEDED PRN 10/09/18 02/25/23 HORMONE 84 days #24 tabs Previous Rx's Medication Instructions Recorded benzonatate 100 mg capsule 100 mg PO TIDP PRN Cough #30 caps 01/11/23 benzonatate 100 mg capsule 100 mg PO TIDP PRN Cough #30 caps 05/28/23 levofloxacin 500 mg tablet 500 mg PO DAILY #7 tabs 05/28/23 methylprednisolone 4 mg tablets in 4 mg PO DIRECTED #21 tabs 05/28/23 a dose pack Allergies Allergy/AdvReac Type Severity Reaction Status Date / Time hydromorphone [From DILAUDID] Allergy Intermediate I-HIVES Verified 01/11/23 10:55 [facility] Disclaimer: The information contained in this section may have been updated after the patient was seen, as this information can be updated by other users. Medical History Allergies Asthma COPD (chronic obstructive pulmonary disease) Depression Hyperlipidemia Hypertension Surgical History History of cholecystectomy History of hysterectomy Social History Smoking Status: Never smoker alcohol intake: never substance use type: denies use current occupational status: employed Travel in the last 8 weeks: None household me
[2023-05-28 10:33] VITALS: BP 120/58; PULSE 62; RESP 18; TEMP 37.7; O2SAT 98
== END 2023-05-28 10:46 | disposition home or self-care (01) ==
PROVIDERS: Emergency Provider Nurse Practitioner Family; PCP Internal Medicine Adolescent Medicine
DX: J01.90 Acute sinusitis, unspecified (principal); J44.9 Chronic obstructive pulmonary disease, unspecified; I10 Essential (primary) hypertension; E78.5 Hyperlipidemia, unspecified; F32.A Depression, unspecified
CPT/HCPCS: 96372; 99212; 99214; G0463; J0696

== ENCOUNTER 2023-06-17 09:05 | Outpatient (CLI) | payer MEDICARE, OTHER, SELFPAY ==
[2023-06-17 09:24] VITALS: BP 111/58; PULSE 70; RESP 16; TEMP 36.4; O2SAT 97
== END 2023-06-17 09:30 | disposition home or self-care (01) ==
LOC: INF 09:07
PROVIDERS: PCP Internal Medicine Adolescent Medicine; Visit Provider Student in an Organized Health Care Education/Training Program
DX: J45.50 Severe persistent asthma, uncomplicated (principal)
CPT/HCPCS: 96372; J0517

== ENCOUNTER → 2023-08-10 09:28 | Outpatient (CLI) | payer MEDICARE, OTHER, SELFPAY ==
--- NOTE | 2023-08-10 09:34 | XR_ITS ---
FINAL REPORT CLINICAL HISTORY: SCREENING/POSTMENOPAUSAL COMPARISON: 08/07/2021 FINDINGS: Using L1-4, the bone mineral density of the spine is 0.930 g/cm2, corresponding to T-score of -1.1. Using the left hip, the bone mineral density of the femoral neck is 0.715 g/cm2, corresponding to a T-score of -1.2. Using the right hip, the bone mineral density of the femoral neck is 0.773 g/cm2, corresponding to a T-score of -0.7. NOTE: T-score: Standard deviation compared with peak bone mass of young adult mean. *Following the recommendations of the International Society of Bone densitometry, classification of hip BMD is based on the lower of two T-scores; total hip or femoral neck. IMPRESSION: Diminished bone mineral density consistent with osteopenia. FRAX was not reported because patient is being treated for osteoporosis. Reviewed, Interpreted and Dictated by Vinicius Rizo MD Transcribed by Hailey Haq Authenticated and [facility]
== END ==
PROVIDERS: PCP Internal Medicine Adolescent Medicine; Visit Provider Internal Medicine Adolescent Medicine
DX: Z78.0 Asymptomatic menopausal state (principal)
CPT/HCPCS: 77080

== ENCOUNTER 2023-08-13 09:03 | Outpatient (CLI) | payer MEDICARE, OTHER, SELFPAY ==
[2023-08-13] MEDS: BENRALIZUMAB 30 MG SQ (09:15)
[2023-08-13 09:20] VITALS: BP 109/62; PULSE 68; RESP 18; O2SAT 98
== END 2023-08-13 09:25 | disposition home or self-care (01) ==
LOC: INF 09:04
PROVIDERS: PCP Internal Medicine Adolescent Medicine; Visit Provider Student in an Organized Health Care Education/Training Program
DX: J45.909 Unspecified asthma, uncomplicated (principal)
CPT/HCPCS: 96372; J0517

== ENCOUNTER 2023-10-08 11:05 | Outpatient (CLI) | payer MEDICARE, OTHER, SELFPAY ==
[2023-10-08] MEDS: BENRALIZUMAB 30 MG SQ (11:23)
[2023-10-08 11:25] VITALS: BP 90/54; PULSE 80; RESP 16; O2SAT 95
== END 2023-10-08 11:30 | disposition home or self-care (01) ==
LOC: INF 11:06
PROVIDERS: PCP Internal Medicine Adolescent Medicine; Visit Provider Student in an Organized Health Care Education/Training Program
DX: J45.50 Severe persistent asthma, uncomplicated (principal)
CPT/HCPCS: 96372; J0517

== ENCOUNTER 2023-12-03 09:09 | Outpatient (CLI) | payer MEDICARE, OTHER, SELFPAY ==
[2023-12-03] MEDS: BENRALIZUMAB 30 MG SQ (09:24)
[2023-12-03 09:25] VITALS: BP 108/59; PULSE 80; RESP 18; O2SAT 95
== END 2023-12-03 09:30 | disposition home or self-care (01) ==
PROVIDERS: PCP Internal Medicine Adolescent Medicine; Visit Provider Student in an Organized Health Care Education/Training Program
DX: J45.50 Severe persistent asthma, uncomplicated (principal)
CPT/HCPCS: 96372; J0517

== ENCOUNTER 2024-02-01 08:42 | Outpatient (CLI) | payer MEDICARE, OTHER, SELFPAY ==
[2024-02-01 09:02] VITALS: BP 104/62; PULSE 71; RESP 18; TEMP 37; O2SAT 97
[2024-02-01] MEDS: BENRALIZUMAB 30 MG SQ (09:02)
== END 2024-02-01 09:10 | disposition home or self-care (01) ==
LOC: INF 08:43
PROVIDERS: PCP Internal Medicine Adolescent Medicine; Visit Provider Student in an Organized Health Care Education/Training Program
DX: J45.50 Severe persistent asthma, uncomplicated (principal); J44.9 Chronic obstructive pulmonary disease, unspecified; Z78.9 Other specified health status; J82.83 Eosinophilic asthma
CPT/HCPCS: 96372; J0517

== ENCOUNTER 2024-05-29 10:59 | Outpatient (CLI) | payer MEDICARE, OTHER, SELFPAY ==
[2024-05-29 11:21] VITALS: BP 123/61; PULSE 78; RESP 16; TEMP 36.7; O2SAT 98
[2024-05-29] MEDS: BENRALIZUMAB 30 MG SQ (11:21)
== END 2024-05-29 11:30 | disposition home or self-care (01) ==
LOC: INF 11:00
PROVIDERS: PCP Internal Medicine Adolescent Medicine; Visit Provider Student in an Organized Health Care Education/Training Program
DX: J45.909 Unspecified asthma, uncomplicated (principal)
CPT/HCPCS: 96372; J0517

== ENCOUNTER 2024-05-31 15:08 | Outpatient (CLI) | payer MEDICARE, OTHER, SELFPAY ==
--- NOTE | 2024-05-31 15:14 | XR_ITS ---
FINAL REPORT CLINICAL HISTORY: SCREENING FINDINGS: Using L1-4, the bone mineral density of the spine is 0.949 g/cm2, corresponding to T-score of -0.9 which is within the normal range.. Using the left hip, the bone mineral density of the femoral neck is 0.665 g/cm2, corresponding to a T-score of -1.7 which is within the osteopenic range. Using the right hip, the bone mineral density of the femoral neck is 0.703 g/cm2, corresponding to a T-score of -1.3 which is within the osteopenic range.. IMPRESSION: Normal bone mineral density of the lumbar spine. Osteopenic bone mineral density of the bilateral femoral necks. NOTE: T-score: Standard deviation compared with peak bone mass of young adult mean. *Following the recommendations of the International Society of Bone densitometry, classification of hip BMD is based on the lower of two T-scores; total hip or femoral neck. Reviewed, Interpreted and Dictated by Vinicius Rizo MD Transcribed by Nat Beyer Authenticated and [facility]
== END 2024-05-31 23:59 | disposition home or self-care (01) ==
LOC: RAD 15:09
PROVIDERS: PCP Internal Medicine Adolescent Medicine; Visit Provider Internal Medicine Adolescent Medicine
DX: M81.0 Age-related osteoporosis without current pathological fracture (principal)
CPT/HCPCS: 77080

== ENCOUNTER 2024-07-24 11:09 | Outpatient (CLI) | payer MEDICARE, OTHER, SELFPAY ==
[2024-07-24 11:19] VITALS: BP 107/55; PULSE 76; RESP 18; TEMP 36.4; O2SAT 95
[2024-07-24] MEDS: BENRALIZUMAB 30 MG SUBCUT (11:19)
== END 2024-07-24 11:30 | disposition home or self-care (01) ==
LOC: INF 11:11
PROVIDERS: PCP Internal Medicine Adolescent Medicine; Visit Provider Physician Assistant
DX: J45.909 Unspecified asthma, uncomplicated (principal)
CPT/HCPCS: 96372; J0517

== ENCOUNTER 2024-08-05 08:45 | Emergency (ER) | payer MEDICARE, OTHER, SELFPAY ==
[2024-08-05 09:00] VITALS: BP 118/55; PULSE 80; RESP 18; TEMP 36.9; O2SAT 98; BMI 24.3
--- NOTE | 2024-08-05 09:49 | ED_ITS ---
Discharge Plan Disposition Patient Disposition: Home, Self-Care Condition: Good Prescriptions Prescriptions: New levofloxacin 500 mg tablet 500 mg PO DAILY Qty: 5 0RF prednisone 20 mg tablet 20 mg PO BID Qty: 10 0RF No Action hydrochlorothiazide 25 mg tablet 25 mg PO DAILY 90 Days Qty: 90 cetirizine [Zyrtec] 10 mg capsule 10 mg PO DAILY montelukast [Singulair] 10 mg tablet 10 mg PO QPM celecoxib 200 mg capsule 200 mg PO DAILY alendronate 70 mg tablet 70 mg PO DAILY pantoprazole 40 mg tablet,delayed release (DR/EC) 40 mg PO DAILY Trelegy Ellipta 100-62.5-25 mcg blister with device 1 ea INHALATION DAILY Ozempic 0.25 mg or 0.5 mg (2 mg/3 mL) pen injector 0.25 mg SQ DAILY Patient Comments: INJECT 0.5 MG SUBCUTANEOUSLY ONCE A WEEK Referrals Follow up/Referrals: Tha Mai MD [Primary Care Provider] - See instructions Activity Restrictions/Add. Instructions Additional Instructions/Restrictions: Start antibiotic patient to take as ordered for a full length of time even if you feel better. Sinus infections do not get better overnight. It may take 2-3 days to notice much improvement so be sure to use conservative measures as discussed for symptoms. Increase fluids Humidifier/vaporizer as needed Tylenol and ibuprofen as needed for fever or pain. If symptoms do not improve or get worse return or be seen in the ER Follow-up with primary care this week Clinical Impressions Clinical Impression: Bronchitis Sinusitis Qualifiers: Sinusitis location: maxillary Chronicity: acute Recurrence: non-recurrent Qualified Code(s): J01.00 - Acute maxillary sinusitis, unspecified Instructions Patient Instructions: DI for Sinusitis, DI for Acute Bronchitis Print Language Print Language: Bhutanese Discharge ED Provider: Liv ([facility] [place])Rachele [facility] [place] HPI General Stated complaint: Coughing, soa and sore throat Mode of Arrival: Ambulatory Source of Information: Patient Limitations: No Limitations Time Seen by Provider: 08/05/24 09:49 Description of Symptoms (Recalled from Triage Doc. by RN): PATIENT C/O COUGH WITH YELLOW SPUTUM, SNEEZING, HEADACHE, AND SOA THAT STARTED LAST NIGHT HEENT Symptoms (Recalled from RN notes): Yes Resp Symptoms (Recalled from RN notes): Yes Skin Symptoms (Recalled from RN notes): No MS Symptoms (Recalled from RN notes): No Functional Status (Recalled from RN notes): WNL History of Present Illness Provider Complaint: 68-year-old female presents for complaints of coughing up thick yellow sputum, sneezing, headache, sinus pressure, sinus congestion, and short of air that started last night. Patient states she has asthma and if she does not get ahead of it it will go into pneumonia. Related Data Home Medications ?Medication ?Instructions ?Recorded ?Confirmed cetirizine 10 mg capsule (Zyrtec) 10 mg PO DAILY ALLERGIES 11/25/17 08/05/24 montelukast 10 mg tablet 10 mg PO QPM ALLERGIES 11/25/17 08/05/24 (Singulair) hydrochlorothiazide 25 mg tablet 25 mg PO DAILY High Blood Pressure 09/30/18 08/05/24 90 days #90 tabs alendronate 70 mg tablet 70 mg PO DAILY 08/05/24 08/05/24 celecoxib 200 mg capsule 200 mg PO DAILY 08/05/24 08/05/24 fluticasone fur. 100 mcg-umeclid 1 ea inhalation DAILY 08/05/24 08/05/24 62.5 mcg-vilant 25 mcg inhalat.powder (Trelegy Ellipta) pantoprazole 40 mg tablet,delayed 40 mg PO DAILY 08/05/24 08/05/24 release semaglutide 0.25 mg or 0.5 mg (2 0.25 mg SQ DAILY 08/05/24 08/05/24 mg/3 mL) subcutaneous pen injector (Ozempic) Previous Rx's ?Medication ?Instructions ?Recorded levofloxacin 500 mg tablet 500 mg PO DAILY #5 tabs 08/05/24 prednisone 20 mg tablet 20 mg PO BID #10 tabs 08/05/24 Allergies Allergy/AdvReac Type Severity Reaction Status Date / Time hydromorphone (From DILAUDID) Allergy Intermediate I-HIVES Verified 05/29/24 11:46 Worker's Comp Is this a Worker's Comp case?: No [facility] Disclaimer: The information contained in this section may have been updated after the patient was seen, as this information can be updated by other users. Medical History , [employer]) Hyperlipidemia COPD (chronic obstructive pulmonary disease) Depression Allergies Asthma Hypertension Surgical History , [employer]ER) History of hysterectomy History of cholecystectomy Social History , [employer]) Smoking Status: Never smoker alcohol intake: never substance use type: denies use current occupational status: employed Travel in the last 8 weeks: None household members: family housing: house Have you lived/traveled outside [place] in past 30 days?: No Contact w/someone who lives/traveled outside [place] past 30 days?: No Exposure to someone with infectious disease in past 14 days?: No Do you have a fever (greater than 100.4 F or 38 C)?: No Have you tested positive for COVID-19: No Exposed to someone with COVID-19 in past 14 days?: No Do you have a sore throat?: Yes Do you have a cough?: Yes Do you have any weakness?: No Do you have any diarrhea?: No Are you experiencing any unusual bleeding?: No Do you have any muscle aches/pain?: No Do you have any abdominal pain?: No Are you experiencing loss of taste or smell?: No ROS Obtained: Yes Systems reviewed as appropriate & no additional complaints except as documented Physical Exam General General appearance: alert and in no apparent distress Eye Eye exam: Present normal appearance ENT ENT exam: Present normal oropharynx, mucous membranes moist and TM's normal bilaterally Expanded ENT Exam Nose exam: Present sinus tenderness Respiratory Respiratory exam: Present normal lung sounds bilaterally and wheezes (Slight wheeze in lower bases) Cardiovascular Cardiovascular exam: Present regular rate and normal rhythm Neurological Exam Neurological exam: Present alert and oriented X3 Skin Skin exam: Present warm and intact Medical Decision Making Medical Records Medical records reviewed: Yes I reviewed the patient's medical records. Screening: Per USPSTF and CDC recommendations, given the prevalence of disease in our region, it is our hospital?s policy to screen for HIV and viral Hepatitis for all patients aged 18 and over and those with ongoing risk factors. Marco Inquiry Pt receiving controlled substance: No Vital Signs: 08/05/24 09:00 Temperature 98.4 F Temperature Source Oral Pulse Rate [Left Brachial] 80 Respiratory Rate 18 Blood Pressure [Left Arm] 118/55 L Blood Pressure Mean [Left Arm] 76 Blood Pressure Source [Left Arm] Automatic Cuff Blood Pressure Position [Left Arm] Sitting 02 Sat by Pulse Oximetry 98 Oxygen Delivery Method Room Air
[2024-08-05 09:58] VITALS: BP 118/55; PULSE 80; RESP 18; TEMP 36.9; O2SAT 98
== END 2024-08-05 10:03 | disposition home or self-care (01) ==
PROVIDERS: Emergency Provider Nurse Practitioner Family; PCP Internal Medicine Adolescent Medicine
DX: J20.9 Acute bronchitis, unspecified (principal); J01.00 Acute maxillary sinusitis, unspecified; R05.9 Cough, unspecified; R06.7 Sneezing; R51.9 Headache, unspecified
CPT/HCPCS: 99212; G0381

== ENCOUNTER 2024-08-16 08:08 | Emergency (ER) | payer MEDICARE, OTHER, SELFPAY ==
--- NOTE | 2024-08-16 08:16 | XR_ITS ---
PROCEDURE INFORMATION: Exam: XR Chest Exam date and time: 08/16/2024 8:10 AM Age: 69 years old Clinical indication: Shortness of breath; Additional info: SOA TECHNIQUE: Imaging protocol: Radiologic exam of the chest. Views: 2 views. COMPARISON: No relevant prior studies available. FINDINGS: Lungs: Patchy moderate alveolar and interstitial infiltrates within the lingula and left lower lobe consistent with pneumonia. Minimal right basilar atelectasis. Pleural spaces: Unremarkable. No pleural effusion. No pneumothorax. Heart/Mediastinum: Unremarkable. No cardiomegaly. Bones/joints: Unremarkable. IMPRESSION: Patchy moderate alveolar and interstitial infiltrates within the lingula and left lower lobe consistent with pneumonia. Minimal right basilar atelectasis.
--- NOTE | 2024-08-16 08:21 | ED_ITS ---
Discharge Plan Disposition Patient Disposition: Home, Self-Care Condition: Good Prescriptions Prescriptions: New azithromycin [Zithromax] 250 mg tablet 250 mg PO UD DOSE PK Qty: 6 0RF Rx Instructions: Take two (2) tablets today, then one (1) tablet days #2 thru #5 amoxicillin [amoxicillin] 875 mg tablet 875 mg PO Q12H Qty: 20 0RF benzonatate 100 mg capsule 100 mg PO TIDP PRN (Reason: Cough) Qty: 30 0RF methylprednisolone 4 mg Tablets,Dose Pack 4 mg PO DIRECTED 6 Days Qty: 21 0RF Rx Instructions: Take 1 pack as directed for 6 days No Action hydrochlorothiazide 25 mg tablet 25 mg PO DAILY 90 Days Qty: 90 cetirizine [Zyrtec] 10 mg capsule 10 mg PO DAILY montelukast [Singulair] 10 mg tablet 10 mg PO QPM celecoxib 200 mg capsule 200 mg PO DAILY alendronate 70 mg tablet 70 mg PO DAILY pantoprazole 40 mg tablet,delayed release (DR/EC) 40 mg PO DAILY Trelegy Ellipta 100-62.5-25 mcg blister with device 1 ea INHALATION DAILY Ozempic 0.25 mg or 0.5 mg (2 mg/3 mL) pen injector 0.25 mg SQ DAILY Patient Comments: INJECT 0.5 MG SUBCUTANEOUSLY ONCE A WEEK levofloxacin 500 mg tablet 500 mg PO DAILY Qty: 5 0RF prednisone 20 mg tablet 20 mg PO BID Qty: 10 0RF Trelegy Ellipta 100-62.5-25 mcg blister with device 100 inh INHALATION DIRECTED Referrals Follow up/Referrals: Tha Mai MD [Primary Care Provider] - See instructions Activity Restrictions/Add. Instructions Additional Instructions/Restrictions: Drink plenty of fluids. Take tylenol or ibuprofen for pain or fever. Take the medications as directed. Follow up with your regular doctor. GO TO THE ER FOR ANY WORSENING SYMPTOMS Don't start the oral steroids (medrol dose pack) until tomorrow since you had the shot here. Clinical Impressions Clinical Impression: Pneumonia Instructions Patient Instructions: Pneumonia--Adult, Azithromycin, Amoxicillin, Dexamethasone Injection, Methylprednisolone Injection Print Language Print Language: [place] Discharge ED Provider[place] [facility] [place] General Stated complaint: diff breathing, pain in left lung Time Seen by Provider: 08/16/24 08:21 History of Present Illness Provider Complaint: She states that for the past 2 days she has had worsening chest tightness, nonproductive cough, and pleuritic type chest pain. Related Data Home Medications ?Medication ?Instructions ?Recorded ?Confirmed cetirizine 10 mg capsule (Zyrtec) 10 mg PO DAILY ALLERGIES 11/25/17 08/16/24 montelukast 10 mg tablet 10 mg PO QPM ALLERGIES 11/25/17 08/16/24 (Singulair) hydrochlorothiazide 25 mg tablet 25 mg PO DAILY High Blood Pressure 09/30/18 08/16/24 90 days #90 tabs alendronate 70 mg tablet 70 mg PO DAILY 08/05/24 08/05/24 celecoxib 200 mg capsule 200 mg PO DAILY 08/05/24 08/05/24 fluticasone fur. 100 mcg-umeclid 1 ea inhalation DAILY 08/05/24 08/05/24 62.5 mcg-vilant 25 mcg inhalat.powder (Trelegy Ellipta) pantoprazole 40 mg tablet,delayed 40 mg PO DAILY 08/05/24 08/16/24 release semaglutide 0.25 mg or 0.5 mg (2 0.25 mg SQ DAILY 08/05/24 08/05/24 mg/3 mL) subcutaneous pen injector (Ozempic) fluticasone fur. 100 mcg-umeclid 100 inh inhalation DIRECTED 08/16/24 08/16/24 62.5 mcg-vilant 25 mcg inhalat.powder (Trelegy Ellipta) Previous Rx's ?Medication ?Instructions ?Recorded levofloxacin 500 mg tablet 500 mg PO DAILY #5 tabs 08/05/24 prednisone 20 mg tablet 20 mg PO BID #10 tabs 08/05/24 amoxicillin 875 mg tablet 875 mg PO Q12H #20 tabs 08/16/24 azithromycin 250 mg tablet 250 mg PO UD DOSE PK #6 tabs 08/16/24 (Zithromax) benzonatate 100 mg capsule 100 mg PO TIDP PRN Cough #30 caps 08/16/24 methylprednisolone 4 mg tablets in 4 mg PO DIRECTED 6 days #21 tabs 08/16/24 a dose pack Allergies Allergy/AdvReac Type Severity Reaction Status Date / Time hydromorphone (From DILAUDID) Allergy Intermediate I-HIVES Verified 05/29/24 11:46 [facility] Disclaimer: The information contained in this section may have been updated after the patient was seen, as this information can be updated by other users. 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) Hyperlipidemia COPD (chronic obstructive pulmonary disease) Depression Allergies Asthma Hypertension Surgical History , MEDICAL PARASITOLOGIST) History of hysterectomy History of cholecystectomy Social History , MEDICAL PARASITOLOGIST) Smoking Status: Never smoker alcohol intake: never substance use type: denies use current occupational status: employed Travel in the last 8 weeks: None household members: family housing: house Have you lived/traveled outside [place] in past 30 days?: No Contact w/someone who lives/traveled outside [place] past 30 days?: No Exposure to someone with infectious disease in past 14 days?: No Do you have a fever (greater than 100.4 F or 38 C)?: No Have you tested positive for COVID-19: No Exposed to someone with COVID-19 in past 14 days?: No Do you have a sore throat?: No Do you have a cough?: No Do you have any weakness?: No Do you have any diarrhea?: No Are you experiencing any unusual bleeding?: No Do you have any muscle aches/pain?: No Do you have any abdominal pain?: No Are you experiencing loss of taste or smell?: No ROS Obtained: Yes All systems reviewed & no additional complaints except as documented Constitutional Constitutional: Reports chills, Reports fever(s) and Reports poor appetite Eyes Eyes: Reports system reviewed and no additional complaints, except as documented ENT Ears, Nose, Mouth, and Throat: Reports as per HPI Cardiovascular Cardiovascular: Reports system reviewed and no additional complaints, except as documented and Denies chest pain Respiratory Respiratory: Denies shortness of breath, Denies chest congestion, Reports cough, Denies stridor and Denies wheezing Gastrointestinal Gastrointestingal: Reports system reviewed and no additional complaints, except as documented; Denies abdominal pain, diarrhea or vomiting Musculoskeletal Musculoskeletal: Reports system reviewed and no additional complaints, except as documented and Denies arthralgias Integumentary/Breasts Skin/Breast: Reports system reviewed and no additional complaints, except as documented and Denies rash Neurologic Neurologic: Denies paresthesias Allergic/Immunologic Allergic/Immunologic: Denies wheezing Physical Exam General General appearance: alert and in no apparent distress Head Head exam: atraumatic, normocephalic and normal inspection Eye Eye exam: Present normal appearance, PERRL and EOMI ENT ENT exam: Present normal exam, normal oropharynx, mucous membranes moist, TM's normal bilaterally and normal external ear exam Neck Neck exam: Present normal inspection, full ROM and trachea midline; Absent meningismus or lymphadenopathy Chest Chest inspection: Present normal inspection and symmetric chest wall rise; Absent tenderness Respiratory Respiratory exam: Present normal lung sounds bilaterally; Absent respiratory distress Cardiovascular Cardiovascular exam: Present regular rate and normal rhythm; Absent JVD Abdominal Exam Abdominal exam: Present soft and normal bowel sounds; Absent distention, tenderness or guarding Extremities Exam Extremities exam: Present normal inspection, full ROM and normal capillary refill; Absent calf tenderness Back Exam Back exam: Present normal inspection; Absent tenderness Neurological Exam Neurological exam: Present alert and oriented X3 Psychiatric Psychiatric exam: Present normal affect and normal mood Skin Skin exam: Present warm, dry, intact and normal color Lymphatic Lymphatic Findings: no adenopathy Medical Decision Making Medical Records Medical records reviewed: No I reviewed the patient's medical records. Screening: Per USPSTF and CDC recommendations, given the prevalence of disease in our region, it is our hospital?s policy to screen for HIV and viral Hepatitis for all patients aged 18 and over and those with ongoing risk factors. Marco Inquiry Pt receiving controlled substance: No Lab Data Lab results reviewed: Yes I reviewed the patient's lab results. Orders (Tests/Meds): ORDERS Category Date Time Status Chest XR 2 view (NOT portable) [XR chest 2V] Stat Exams 08/16/24 08:16 Ordered
[2024-08-16 08:33] VITALS: BP 112/55; PULSE 94; RESP 20; TEMP 36.8; O2SAT 91; BMI 24.1
[2024-08-16] MEDS: IPRATROPIUM/ALBUTEROL 3 ML NEB IH (08:38)
[2024-08-16 08:39] VITALS: O2SAT 99
[2024-08-16] MEDS: LIDOCAINE 1% 5ML PF VIAL IM (08:48)
[2024-08-16] MEDS: DEXAMETHASONE 4MG/ML 1ML VIAL 8 MG IM (08:48)
[2024-08-16] MEDS: cefTRIAXone 1GM VIAL 1 GM IM (08:48)
[2024-08-16 09:10] VITALS: BP 112/55; PULSE 94; RESP 18; TEMP 36.8
[2024-08-16 09:18] LABS: Coronavirus 19, PCR Not Detected (NotDetected); Human Rhinovirus Not Detected (NotDetected); Influenza A, PCR Not Detected (NotDetected); Influenza B, PCR Not Detected (NotDetected); Respiratory Syncytial Virus Not Detected (NotDetected)
== END 2024-08-16 09:13 | disposition home or self-care (01) ==
PROVIDERS: Emergency Provider Nurse Practitioner Family; PCP Internal Medicine Adolescent Medicine
DX: J18.9 Pneumonia, unspecified organism (principal); R07.89 Other chest pain; R50.9 Fever, unspecified; R05.9 Cough, unspecified; R63.8 Other symptoms and signs concerning food and fluid intake
CPT/HCPCS: 71046; 87631; 99212; G0381; J0696; J1100; J7620

== ENCOUNTER 2024-08-24 15:37 | Outpatient (CLI) | payer MEDICARE, OTHER, SELFPAY ==
--- NOTE | 2024-08-24 15:42 | XR_ITS ---
FINAL REPORT TECHNIQUE: Chest PA & Lateral CLINICAL HISTORY: PNEUMONIA, COUGH COMPARISON: None FINDINGS: 2 views of the chest were performed. The heart size is normal. The mediastinum is within normal limits. Airspace opacities are present in the left perihilar region as well as the medial left base, consistent with pneumonia. There are no pleural effusions. There is no pneumothorax. The bony thorax appears intact. IMPRESSION: Left perihilar and medial basilar opacities are present, consistent with pneumonia. Reviewed, Interpreted and Dictated by Vinicius Rizo MD Transcribed by Concepcion Huffman Authenticated and [facility]
== END 2024-08-24 23:59 | disposition home or self-care (01) ==
LOC: RAD 15:38
PROVIDERS: PCP Internal Medicine Adolescent Medicine; Visit Provider Nurse Practitioner Family
DX: J18.9 Pneumonia, unspecified organism (principal)
CPT/HCPCS: 71046

== ENCOUNTER 2024-09-19 10:23 | Outpatient (CLI) | payer MEDICARE, OTHER, SELFPAY ==
[2024-09-19 10:35] VITALS: BP 111/68; PULSE 71; RESP 16; TEMP 36.6; O2SAT 98
[2024-09-19] MEDS: BENRALIZUMAB 30 MG SUBCUT (10:35)
== END 2024-09-19 10:45 | disposition home or self-care (01) ==
LOC: INF 10:24
PROVIDERS: PCP Internal Medicine Adolescent Medicine; Visit Provider Physician Assistant
DX: J45.909 Unspecified asthma, uncomplicated (principal)
CPT/HCPCS: 96372; J0517

== ENCOUNTER 2024-11-13 08:56 | Outpatient (CLI) | payer MEDICARE, OTHER, SELFPAY ==
[2024-11-13 09:42] VITALS: BP 107/73; PULSE 79; RESP 16; TEMP 36.4; O2SAT 97
[2024-11-13] MEDS: BENRALIZUMAB 30 MG SUBCUT (09:42)
== END 2024-11-13 09:50 | disposition home or self-care (01) ==
LOC: INF 08:57
PROVIDERS: PCP Internal Medicine Adolescent Medicine; Visit Provider Physician Assistant
DX: J45.909 Unspecified asthma, uncomplicated (principal)
CPT/HCPCS: 96372; J0517

== ENCOUNTER 2025-01-03 15:01 | Outpatient (RCR) | payer MEDICARE, OTHER, SELFPAY | END 2025-01-03 23:59 | disposition home or self-care (01) | LOC: PT 15:01 | PROVIDERS: PCP Internal Medicine Adolescent Medicine; Visit Provider Physician Assistant | DX: M76.892 Other specified enthesopathies of left lower limb, excluding foot (principal) | CPT/HCPCS: 97110; 97163 ==

== ENCOUNTER 2025-01-09 09:54 | Outpatient (CLI) | payer MEDICARE, OTHER, SELFPAY ==
--- OUTSIDE RECORDS SUMMARY | 2025-01-09 09:58 | XMS_ITS | Data Portability ---
Author Organization [facility] Seda Farleyi pham, [facility] [place] [facility] Address [address] [place] [address] Care Team Providers Care Policy Writer Name Role Phone JUSTINASANDY ALBERT Primary Care Provider [phone] JUSTO PAT Dyehouse Worker [phone] DOROTHEA MARTE Manager Production Assessment Encounter Date Assessment Date Assessment LastModified by Organization Details LastModified Time 05/08/2024 05/08/2024 RTC in 6 months aerwin Not available 05/08/2024 10:47:48 11/09/2024 11/09/2024 RTC in 6 months aerwin Not available 11/09/2024 11:17:48 Plan of Treatment Reminders Order Date Submit Date Provider Last Modified By Organization Details Last Modified Time Details Appointments 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 Referral physical therapis t referral 2024 025 [facility], [address], [place], [address], 01/04/2025 10:15:04 Procedures None recorded . Surgeries None recorded . Imaging None recorded . Medication Orders Trelegy Ellipta 100 mcg-62.5 mcg-25 mcg powder for inhalati on 2024 025 [facility], [address] [place] [address], [address], [place], [address], 11/09/2024 11:22:56 monteluk ast 10 mg tablet 2023 024 [facility], [address] [place] [address], [address], [place], [address], 05/08/2024 10:57:35 Trelegy Ellipta 100 mcg-62.5 mcg-25 mcg powder for inhalati on 2023 024 [facility], [address] [place] [address], [address], [place], [address], 05/08/2024 10:57:37 estradio l 0.01% (0.1 mg/gram) vaginal cream 2023 024 [facility], [address] [place] [address], [facility] [address], [place], [address], 04/14/2024 11:10:12 Patient TargetsNo targets recorded. Patient Instructions Encounter Date Encounter Id Patient Instructions Last Modified By Organization Details Last Modified Time 05/08/2024 [id number] f/u in 6 months. aerwin Not availabl e 05/08/2024 13:10:38 11/09/2024 [id number] In 6 months. aerwin Not available 14:27:38 Reason for Referral Physical Therapist Referral for Tendinitis of hip Referring Physician: Татьяна Ng, Orthopedic Surgery, Encounter Date: 12/22/2024 Results Created Date Observation Date Name Description Value Unit Range Abnormal Flag Note LastModifiedBy Organization Detail LastModifiedTime 09/07/1909/07/2024 XR, knee, 4 or more view [place] [facility] [place] [address] [place] [address] Servando chavarria Name: FLEX Ashby Trice ALLENON Servando chavarria : 1954 Servando chavarria Orderi ng Provid er: ТАТЬЯНА NG EXAM DATE: 2024 EXAM: XR LT KNEE COMPLE TE, 4 OR MORE VWS COMPAR ALESHIA: 08/17/19 24 HISTOR Y: Left knee pain. FINDIN GS: No fractu re is identi fied. There are severe degene rative change s in the left knee. There is near comple te medial joint space loss. There is modera te to severe margin al spurri ng. Contra latera l knee: There are modera te degene rative change s. IMPRES AMPARO: 1. There are severe degene rative change s in the left knee. Interp reted By: Sada douglas MD Electr onical ly Signed By: Sada douglas MD on 10:55 AM [email or web address] [facility] [place] [address], [place], [address], 09/07/2024 13:09:20 12/23/19 25 12/22/2024 XR, knee, 4 or more view [facility] [address] [place] [address] Patien t Name: FLEX chavarria : 1954 Servando chavarria Orderi ng Provid er: ТАТЬЯНА NG EXAM DATE: 2024 EXAM: XR LT KNEE COMPLE TE, 4 OR MORE VWS COMPAR ALESHIA: 025 HISTOR Y: Left knee pain. FINDIN GS: No fractu re is identi fied. There are severe degene rative change s in the left knee. There is near comple te medial joint space loss. There is modera te to severe margin al spurri ng. Contra latera l knee: There are mild to modera te degene rative change s. IMPRES AMPARO: 1. There are severe degene rative change s in the left knee. Interp reted By: Sada douglas MD Electr onical ly Signed By: Sada douglas MD on 12/23/19 25 12:35 PM [email or web address] [facility] [address] [place], [address], 12/22/2024 12:43:01 Result Notes None recorded. Problems Name Problem SNOMED Code Status Onset Date Resolution Date Notes Provider Name and Address Organization Details Recorded Time Sinusitis 64036310 Active 2015 From Automated Load;Prov ider: Carlos Simms III;S tatus: Active Not Available [facility] 7 02:27:07 Hearing loss 61244391 Active 2015 From Automated Load;Prov ider: Carlos Simms III;S tatus: Active Not Available [facility] 7 02:37:33 Chronic mastoidit is 55469667 Active 2015 From Automated Load;Prov ider: Carlos Simms III;S tatus: Active Not Available [facility] 7 06:16:21 Acute non-suppu rative serous otitis media 769207971 Active 2015 From Automated Load;Prov ider: Carlos Simms III;S tatus: Active Not Available [facility] 7 08:00:44 Eustachia n tube disorder 72386447 Active 2015 From Automated Load;Prov ider: Carlos Simms III;S tatus: Active Not Available [facility] 7 08:00:44 Pneumonia 563429146 Active 2015 Provider: Preston Simms III tatus: Active Not Available [facility] 7 08:03:36 Headache disorder 173037897 Active 2015 Provider: Preston Simms III tatus: Active Not Available [facility] 7 08:11:17 Mixed conductiv e AND sensorine ural hearing loss 83315396 Active 2015 From Automated Load;Prov ider: Carlos Simms III;S tatus: Active Not Available [facility] 7 08:11:17 Sensorine ural hearing loss of bilateral ears 308704543 Active 2015 Provider: Preston Simms III tatus: Active Not Available [facility] 7 08:11:17 Conductiv e hearing loss 02690874 Active 2015 Provider: Preston Simms III: Active Not Available [facility] 7 08:11:17 Asthma 630250046 Active 2018 VALE FABIAN MD [facility] [place], [address] , [facility] 9 14:26:28 Chronic obstructi ve pulmonary disease 63339847 Active 2018 VALE FABIAN MD [facility] [place], [address] , [facility] 9 14:26:30 Bronchiec tasis 03944791 Active 2018 VALE FABIAN MD [facility] [place], [address] , [facility] 9 14:26:31 Recurrent pneumonia 942404957 Active 2018 VALE FABIAN MD [facility] [place], [address] , [facility] 9 14:26:41 Solitary nodule of lung 376072724 Active 2018 VALE FABIAN MD [facility] [place], [address] , [facility] 9 17:04:04 Pulmonary eosinophi tae 652505400 Active 2018 VALE FABIAN MD [facility] [place], [address] , [facility] 9 17:04:05 Allergic bronchopu lmonary mycosis 73546179338 9103 Active 2018 VALE FABIAN MD [facility] [place], [address] , [facility] 9 16:16:58 Severe persisten t asthma 599458322 Active 2018 VALE FABIAN MD [address] [place], [address] , [facility] 9 16:16:59 Posterior rhinorrhe a 11143450 Active 2018 VALE FABIAN MD [address] [place], [address] , [facility] 9 11:55:43 Gastroeso phageal reflux disease without esophagit is 489895387 Active 2018 VALE FABIAN MD [address] [place], [address] , [facility] 9 11:55:44 Reduced libido 3467656 Active 2015 From Automated Load;Prov ider: Sapna, Lorelei;Stat us: Active Not Available [facility] 6 04:40:08 Lack of energy 818782097 Active 2015 From Automated Load;Prov ider: Sapan, Lorelei;Stat us: Active Not Available [facility] 6 04:40:08 Problem Notes None recorded. Procedures Surgical History Date Name Laterality Status Provider Name and Address Organization Details Recorded Time 05/08/20 24 Spirometry completed Eunice Reveles [facility] 05/08/2024 10:38:12 03/28/20 21 Control Anterior Epistaxis completed [facility] 03/28/2021 10:21:53 07/04/20 19 Laryngoscopy Flex completed [facility] 07/04/2019 17:11:21 06/05/20 19 Ingestion Challenging completed JUSTO PAT MD [address] [place], [address], [facility] 06/05/2019 13:30:19 05/31/20 19 Spirometry with Bronchodilator completed Micki Angeles [facility] 05/31/2019 12:00:08 03/09/20 19 Pulse Oximetry completed Praveena Cobos [facility] 03/09/2019 10:39:21 03/09/20 19 Spirometry with Bronchodilator completed Praveena Cobos [facility] 03/09/2019 10:39:30 10/13/19 19 Pap Smear collection completed YAMILEX NGUYEN MD [address] [place], [address], [facility] 10/13/2018 12:00:40 10/13/19 19 Date of Last Pap Smear completed Angelia Rangel [facility] 11/01/2018 13:52:02 09/15/19 19 Airway Resistance completed [facility] 09/15/2018 13:13:29 09/15/19 19 Diffusion Capacity completed [facility] 09/15/2018 13:13:27 09/15/19 19 Lung Volumes, Plethysmography completed [facility] 09/15/2018 13:13:30 09/15/19 19 Pulse Oximetry completed [facility] 09/15/2018 13:08:05 09/15/19 19 Spirometry with Bronchodilator completed [facility] 09/15/2018 13:32:32 09/01/19 17 Transvaginal Ultrasound; Non-OB completed YAMILEX NGUYEN MD [address] [place] [address], [address], [facility] 09/01/2016 10:26:56 Other completed Monisha Dominqiue [facility] 10/12/2017 14:00:55 Other completed Melisa Loja [facility] 09/01/2016 09:41:02 Cholecystectomy completed Melisa Loja [facility] 09/01/2016 09:41:12 Other completed Melisa Loja [facility] 09/01/2016 09:41:23 Other completed Melisa Loja [facility] 09/01/2016 09:41:43 Other completed Melisa Freedom [facility] 09/01/2016 09:42:00 Imaging Results None recorded. Procedure Notes None recorded. Medical Equipment None Reported. Allergies Allergen ID Allergen Name Allergen Category Reaction Reaction Severity Criticality Documentation Date Start Date Code Code System Note Provider Name and Address Organization Details Recorded Time 744484 Product containin g penicilli n (product) medicatio n Not available Not available Not available 07/10/20162007 18566 8001 SNOMED Comme nt: Creat ed By: Jose Alfredo reveles;Cre ated Date: 06/15 11:50 :23 AM; JUSTO PAT MD [address] [place], [address], [facility] 9 13:33:11 797566 Dilaudid medicatio n Not available Not available Not available 07/19/2018 99024 3 RxNorm Yvette Rodriguez francis, [facility] 8 15:48:20 Medications Name Sig Start Date Stop Date Status Note LastModified by Organization Details LastModified Time Prescript ion - Renewal 10/12 completed Not Available Not Available Not Available Prescript ion - Prior Authoriza tion Request 05/31 completed Not Available Not Available Not Available celecoxib 200 mg capsule TAKE 1 CAPSULE BY MOUTH EVERY DAY WITH MEAL FOR KNEE PAIN. 2024 active Not Available Not Available Not Avai lable metformin 500 mg tablet Take 1 tablet every day by oral route. 10/11 completed Not Available Not Available Not Available acetylcys teine 200 mg/mL (20 %) solution Inhale 4 mL twice a day by nebuliza tion route as needed. 03/27 completed Not Available Not Available Not Available nystatin 100,000 unit/mL oral suspensio n Take 5 mL 4 times a day by oral route for 10 days. 04/25 completed Not Available Not Available Not Available prednison e 10 mg tablet Take 1 tablet every day by oral route as needed. 01/06 completed Not Available Not Available Not Available azithromy josie 250 mg tablet TAKE 2 TABLETS (500 MG) BY ORAL ROUTE ONCE DAILY FOR 1 DAY THEN 1 TABLET (250 MG) BY ORAL ROUTE ONCE DAILY FOR 4 DAYS 01/06 completed Not Available Not Available Not Available hydrochlo rothiazid e 50 mg tablet Take 1 tablet every day by oral route. 10/13 completed Not Available Not Available Not Available cimetidin e 400 mg tablet Take 1 tablet every day by oral route in the evening. 07/24 completed Not Available Not Available Not Available fluconazo le 200 mg tablet Take 1 tablet every day by oral route for 14 days. 10/27 completed Not Available Not Available Not Available meloxicam 15 mg tablet Take 1 tablet every day by oral route. 2021 active No longer taking this Not Available Not Available Not Available prednison e 20 mg tablet 2 tabs PO qd for 5 days, then 1 tablet daily x 5 days 04/14 completed Not Available Not Available Not Available Zyrtec 10 mg tablet 07/04 completed Duration : 10 days;Med ication Descript ion: cetirizi ne; Route:or al; refills: 0; Quantity :30 tablet Not Available Not Available Not Available ciproflox acin 500 mg tablet Take 1 tablet every 12 hours by oral route for 14 days. 08/11 completed Not Available Not Available Not Available triamcino lone acetonide 0.1 % topical cream APPLY A THIN LAYER TO THE AFFECTED AREA(S) BY TOPICAL ROUTE 2 TIMES PER DAY 2021 active Not Available Not Available Not Avai lable alendrona te 35 mg tablet Take 1 tablet every week by oral route. 04/25 completed Not Available Not Available Not Available Vagifem 25 mcg vaginal tablet 07/19 completed Not Available Not Available Not Available amoxicill in 875 mg tablet Take 1 tablet every 12 hours by oral route for 7 days. 11/12 completed Not Available Not Available Not Available pantopraz ole 40 mg tablet,de layed release TAKE 1 TABLET BY MOUTH ONCE DAILY 2024 active Not Available Not Available Not Avai lable monteluka st 10 mg tablet Take 1 tablet every day by oral route for 90 days. 2023 active Not Available Not Available Not Avai lable aspirin 81 mg tablet Daily active Duration : 30 days;Madi quency: daily;Me dication Descript ion: aspirin; Dosage:1 ; Route:or al; refills: 0; Quantity :30 tablet Not Available Not Available Not Available hydrochlo rothiazid e 25 mg tablet Take 1 tablet every day by oral route. active Not Available Not Available No t Available mupirocin 2 % topical ointment Apply topicall y in the nose bid x 10 days. then prn 01/20 completed Not Available Not Available Not Available Levaquin 500 mg tablet Take 1 tablet every day by oral route for 14 days. 05/31 completed Duration : 10 days;Madi quency: daily;Me dication Descript ion: levoflox acin; Dosage:1 ; Route:or al; refills: 0; Quantity :10 tablet Not Available Not Available Not Available estradiol 0.01% (0.1 mg/gram) vaginal cream Use 1 gram oer vagina at bedtime every night for 2 weeks then use 0.5 grams per vagina at bedtime twice a week 2023 active Not Available Not Available Not Avai lable levofloxa josie 750 mg tablet Take 1 tablet every day by oral route for 7 days. 04/14 completed Not Available Not Available Not Available ipratropi um bromide 42 mcg (0.06 %) nasal spray Drexel 2 sprays 3 times a day by intranas al route as needed. 03/19 completed Not Available Not Available Not Available brompheni ramine-ps eudoephed rine-DM 2 mg-30 mg-10 mg/5 mL oral syrup Take 10 mL every 4 hours by oral route as needed. 04/25 completed Not Available Not Available Not Available cefdinir 300 mg capsule Take 1 capsule every 12 hours by oral route for 7 days. 01/06 completed Not Available Not Available Not Available itraconaz ole 100 mg capsule Take 2 capsules every day by oral route. 03/19 completed Not Available Not Available Not Available Augmentin 500 mg-125 mg tablet Take 1 tablet every 12 hours by oral route for 10 days. 01/20 completed Not Available Not Available Not Available amoxicill in 875 mg-potass ium clavulana te 125 mg tablet Take 1 tablet every 12 hours by oral route for 10 days. 04/14 completed Not Available Not Available Not Available Vivelle-D ot 0.025 mg/24 hr transderm al patch Twice weekly 09/01 completed Instruct ions: Quantity 24 patches; Frequenc y: 2x/ week;Med ication Descript ion: estradio l; Dosage:1 ; Route:tr ansderma l; refills: 4; Quantity :24 film, extended release Not Available Not Available Not Available Crestor 10 mg tablet Daily active Frequenc y: daily;Me dication Descript ion: rosuvast atin; Dosage:1 ; Route:or al; refills: 5; Quantity :30 tablet Not Available Not Available Not Available Cymbalta 60 mg capsule,d elayed release Take 1 capsule every day by oral route. 10/11 completed Not Available Not Available Not Available Cymbalta 30 mg capsule,d elayed release Daily 01/19 completed Frequenc y: daily;Me dication Descript ion: duloxeti ne; Dosage:1 ; Route:or al; refills: 0 Not Available Not Available Not Available alendrona te once weekly active Not Available Not Available No t Available vitamin B complex Daily 10/11 completed Frequenc y: daily;Me dication Descript ion: multivit ames; Dosage:1 ; refills: 0 Not Available Not Available Not Available Caltrate- 600 Two times a day active Duration : 10 days;Madi quency: bid;Medi cation Descript ion: calcium carbonat e; Dosage:1 ; Route:or al; refills: 0; Quantity :30 tablet Not Available Not Available Not Available Symbicort 80 mcg-4.5 mcg/actua tion HFA aerosol inhaler Inhale 2 puffs twice a day by inhalati on route. 10/11 completed Not Available Not Available Not Available sodium chloride 7 % for nebulizat ion Inhale 1 inhalati on twice a day by inhalati on route. 01/20 completed PRN Not Available Not Available Not Available Xyzal 5 mg tablet Take 1 tablet every day by oral route. 07/16 completed Not Available Not Available Not Available Vagifem [address] one tablet in vagina twice a week 04/25 completed Not Available Not Available Not Available Zyrtec 10 mg capsule Take by oral route. active Not Available Not Available No t Available Vimovo 500 mg-20 mg tablet,im mediate and delay release 10/12 completed Medicati on Descript ion: esomepra zole-nap roxen; Route:or al; refills: 0 Not Available Not Available Not Available Morena Allergy 180 mg tablet Take 1 tablet every day by oral route. 08/02 completed Not Available Not Available Not Available Trelegy Ellipta 100 mcg-62.5 mcg-25 mcg powder for inhalatio n 1 puff daily 2024 active Not Available Not Available Not Avai lable Fasenra 30 mg/mL subcutane ous syringe 2023 active Not Available Not Available Not Avai lable Dupixent 200 mg/1.14 mL subcutane ous syringe Inject 1.14 mL every 2 weeks by subcutan eous route. 07/04 completed Not Available Not Available Not Available Fasenra Pen 30 mg/mL subcutane ous auto-inje ctor active Not Available Not Available Not Available Ozempic 0.25 mg or 0.5 mg (2 mg/3 mL) subcutane ous pen injector Inject 0.5 mg every week by subcutan eous route. active Not Available Not Available No t Available Vitals Date Recorded Body height Body mass index (BMI) Body weight Provider Name and Address Organization Details Last Updated DateTime 09/07/2024 156.21 cm 24 kg/m2 44643.42 g Jennifer Bai [facility] 09/07/2024 10:46:44 Date Recorded Body height Body mass index (BMI) Body weight Oxygen saturation Oxygen saturation in Arterial blood by Pulse oximetry Heart rate Systolic And Diastolic Provider Name and Address Organization Details Last Updated DateTime 156.21 cm 24.2 kg/m2 97369.0 1 g 98 % 98 % 65 /min 118/68 mm[Hg] Rachel Saucedo [facility] 10:57:52 Date Recorded Body height Body mass index (BMI) Body weight Provider Name and Address Organization Details Last Updated DateTime 12/22/2024 156.21 cm 247.2 kg/m2 405495.85 g Vinayak Sanford [facility] 12/22/2024 11:49:54 Date Recorded Body height Body mass index (BMI) Body weight Heart rate Systolic And Diastolic Provider Name and Address Organization Details Last Updated DateTime 04/14/2024 156.21 cm 24.6 kg/m2 40002.99 g 70 /min 118/68 mm[Hg] Maria Isabel Felipe [facility] 04/14/2024 09:52:51 Date Recorded Body height Body mass index (BMI) Body weight Oxygen saturation Oxygen saturation in Arterial blood by Pulse oximetry Heart rate Systolic And Diastolic Provider Name and Address Organization Details Last Updated DateTime 4 156.21 cm 24 kg/m2 51448.4 2 g 98 % 98 % 79 /min 100/70 mm[Hg] Eunice Reveles [facility] 4 10:34:17 Social History Question Answer Notes LastModified by [employer] Details LastModified Time Tobacco Smoking Status [facility] 09:40:01 What Is Your Level Of Caffeine Consumption? Occasional [email or web address] Information not available 09/01/2016 How Much Tobacco Do You Chew? None [email or web address] Information not available 07/24/2020 Exposure To Fumes No Information not available 03/02/2022 Exposure To Dust No Information not available 03/02/2022 Exposure To Smoke No Information not available 03/02/2022 Exposure To Asbestos No Information not available 03/02/2022 Exposure To Animals Yes Information not available 09/15/2018 Exposure To Other Toxic Chemicals No Information not available 03/02/2022 Marijuana No Information no t available 03/02/2022 Marital Status [email or web address] Informatio n not available 10/12/2017 What Was The Date Of Your Most Recent Tobacco Screening? 03/02/2022 Information not available 03/02/2022 How Much Tobacco Do You Smoke? No [email or web address] Information not available 07/24/2020 How Many Years Have You Smoked Tobacco? 0 [email or web address] Information not available 07/24/2020 Have You Recently Traveled Abroad? No Information not available 03/02/2022 Sex: Female Functional Status Question Answer Note LastModified by [employer] Details LastModified Time Do you use any illicit or recreational drugs? No Information not available 03/02/2022 Do you or have you ever used any other forms of tobacco or nicotine? No [email or web address] Information not available 10/27/2021 What is your level of alcohol consumption? Occasional RARELY [email or web address] Information not available 05/08/2024 Do you or have you ever used smokeless tobacco? Never used smokeless tobacco Information not available 07/24/2020 Have you been exposed to chemicals or toxins? No Information not available 03/02/2022 Do you or have you ever used e-cigarettes or vape? Never used electronic cigarettes [email or web address] Information not available 07/24/2020 What is your exercise level? None [email or web address] Information not available 09/15/2018 Mental Status None recorded. Family History Relationship Description Onset Age of this Age Resolved Age Notes LastModified by Organization Details LastModified Time Mother Cerebrovascu lar accident [email or web address] Not available 09:39:51 Mother Asthma [email or web address] Not available 07/19/2018 15:48:45 Medical History Condition Response Allergies/Hayfever Y Atrial Fibrillation N Chronic Obstructive Pulmonary Disease Y Blood Transfusion N Emphysema N Hospitalizations N Black Lung N Alzheimer's N Thyroid Problems N Sarcoidosis N Pneumonia Y Pulmonary Hypertension N Anemia N Anesthesia Complications N Ulcers N Heart Attack ([place]) N Deep Vein Thrombosis N Sinusitis Y Pulmonary Fibrosis N Anxiety Disorder Y Diabetes N Bleeding Disorder N Arthritis N Seizures/Epilepsy N Tuberculosis N AIDS/HIV N Alpha 1 Antitrypsin Deficiency N Congestive Heart Failure (CHF) N Hyperlipidemia Y Cancer N Stroke N Asthma Y Sleep Apnea N Thyroid Disorder N GERD/Reflux N High Cholesterol Y Aneurysm N Cirrhosis N Neuropathy N Pulmonary Embolism N Hypertension N Osteoporosis Y Gynecological History Statement/Question Response Abnormal Pap N Date of Last Mammogram Date of Last Colonoscopy Most Recent Bone Density Sexually Active? Y Menses Monthly N Date of Last Pap Smear 10/13/2018 Current Control Method Hysterectom y Obstetrics History GPAL:G 2 P 2 0 0 0 Type Value Full Term 2 Total 2 Immunizations Vaccine Type Date Status Note Provider Nam e and Address Organization Details Recorded Time Influenza, recombinant, quadrivalent, PF 0 completed Maria Isabel Current null, [facility] 04/14/2024 09:42:10 Tdap 2 completed Maria Isabel Current null, [facility] 04/14/2024 09:42:10 Influenza, high-dose, trivalent, PF 2 completed Maria Isabel Current null, [facility] 04/14/2024 09:42:10 Hep A, ped/adol, 2 dose 8 completed Maria Isabel Current null, [facility] 04/14/2024 09:42:10 Influenza, recombinant, quadrivalent, PF 9 completed Not Available [facility] 09/02/2019 02:47:54 Pneumococcal conjugate PCV 13 0 completed Martin Medellin null, [facility] 07/24/2020 12:21:41 pneumococcal polysaccharide PPV23 2 completed Jeannette Rose null, [facility] 10/27/2021 14:40:23 COVID-19, mRNA, LNP-S, PF, 100 mcg/0.5mL dose or 50 mcg/0.25mL dose 1 completed Maria Isabel Current null, [facility] 04/14/2024 09:42:10 COVID-19, mRNA, LNP-S, PF, 100 mcg/0.5mL dose or 50 mcg/0.25mL dose 1 completed Maria Isabel Current null, [facility] 04/14/2024 09:42:10 COVID-19, mRNA, LNP-S, PF, 100 mcg/0.5mL dose or 50 mcg/0.25mL dose 1 completed Rachel Saucedo [facility], [facility] 08/11/2022 11:34:51 Influenza, high-dose, trivalent, PF 4 completed DOROTHEA MARTE PA-C [address] [place] [address], [address], [facility] 05/08/2024 13:07:36 influenza, unspecified formulation 3 completed Rachel Saucedo null, [facility] 07/05/2023 10:56:35 zoster recombinant 3 completed Rachel Saucedo null, [facility] 07/05/2023 10:57:02 Past Encounters Encounter ID Performer Location Encounter Start Date Encounter Closed Date Diagnosis/Indication Diagnosis SNOMED-CT Code Diagnosis ICD10 Code Diagnosis Note [id number] YAMILEX NGUYEN MD [employer] [facility] [address] [place] [address] 09/01/2016 09:30:48 09/01/2016 10:31:50 Routine gynecologic examination done 8689616283 9101 Z01.411 no need for pap of cuff , check 5 yrs. Atrophic vaginitis 49422 000 N95.2 refill Pelvic mass 56464369 R19 .00 u/s done in office. neither ovary seen, stool in colon only. no free fluid. normal bladder. Anxiety 52741434 F41.9 increase to 60 mg daily (was on 30) [id number] [facility] [place] [address] 11/16/2016 20:21:39 11/16/2016 20:21:39 [id number] YAMILEX NGUYEN MD [employer] [facility] [address] [facility] [place] [address] 10/12/2017 13:49:14 10/12/2017 14:42:48 Routine gynecologic examination done [id number] 9101 Z01.419 ovarian cancer screening , informatio n given. prior tvh ar, no sign of recurrent prolapse. Screening for malignant neoplasm of breast 253886708 Z12.31 up to date , benign exam today. resolving bruise. [id number] MD KI LIZAMA III E[facility] [address] [place] [address] 07/19/2018 15:36:12 07/20/2018 07:49:13 Chronic sinusitis 57949906 J32.9 Asthma 562233038 J45.90 9 Wheezing 82540716 R06.2 Acute sinusitis 24551388 J01.90 Persistent cough 6624669 02 R05 [id number] VALE FABIAN MD PULMONARY [address] [facility], [address] [place] [address] 09/15/2018 12:37:19 09/16/2018 06:59:49 Recurrent pneumonia 448008696 J18.9 10 pneumonias , most always LLL in 5 years + a previous empyema. She needs CT imaging to look for airway obstructio ns and bronchiect asis. Checking immunoglob ulins. Pending those results, she might need more immunoscre ening. She does not have the symptoms currently to say that her patchy infiltrate s are a pneumonia now. They could be scarring or ILD or atypical disease. They could also represent chronic aspiration s. Her HRCT should help clarify her process. Asthma 347247443 J45.90 9 Currently stable on symbicort 80 and singulair, but 2 exacerbati ons every year would qualify her for potential biologic therapy. She has overlapped to COPD. Checking IgE and Eos to look for biologic targets. Bronchiectasis 99820312 J47.9 I suspect she has bronchiect asis given recurrent chronic bronchitic infections . I'll get an HRCT to better evaluate for bronchiect asis or airway obstructio ns or atypical infection. Chronic ob structive pulmonary disease 41061268 J44.9 Mild. Overlap with asthma. Chronic Bronchitis subtype, likely from uncontroll ed asthma vs bronchiect asis. FEV1 1.40 64%. [id number] VALE FABIAN MD PULMONARY [address] [facility], [address] [place] [address] 10/11/2018 13:37:20 10/13/2018 07:16:47 Bronchiectasis 60690162 J47.9 Significan t bronchiect asis in her right upper lobe, left upper lobe, left lower lobe with micronodul ar disease and findings suggestive of mucous plugging. 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 Given her thick green sputum, I also suspect that she has a concurrent pseudomona s infection. I will not restart steroids or antibiotic s on her until I can perform bronchosco py with BAL to send for AFBs, standard culture, fungal culture, ovum and parasites, cell count. In addition to stepping up her inhaler therapy to Trelegy, I will have her use regular Mucinex for airway clearance. If she has significan t mucus on bronchosco py despite Mucinex and triple inhaler therapy, I will start her on nebulized saline and a flutter valve. Connective tissue testing needed to evaluate for potential bronchiect asis causes. Immunoglob ulins outside of her elevated IgE are normal. She needs HIV testing as part of her basic immunefunc tion screening. She could also potentiall y have ABPM/ABPA and will need specific IgE testing. I will also check BMP and LFTs in anticipati on of prolonged antibiotic therapy. I will provide her with a list of the specific lab tests at time of bronchosco py because she usually prefers to get her testing locally. Schedule for bronchosco py with BAL and transbronc hial biopsies of left lower lobe. Pulmonary eosinophilia 701884071 J82 Severe persistent asthma. Difficult to delineate between asthma exacerbati on and bronchiect asis exacerbati ons. Eosinophil s 712 (09/19/18) IgE 380 She does qualify for anti-eosin ophil or anti-IgE therapy's if she continues to have frequent exacerbati ons despite full-time maintenanc e therapy if she doesn't have evidence of fungus or parasitic infection on bronchosco py that would cause her eosinophil ia. Replacing her Symbicort with samples of Trelegy while she is off steroids. Continue Singulair. 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 Repeat CT scan in 6 months (March 2019) [id number] YAMILEX NGUYEN MD [employer] [facility] [address] [facility] [place] [address] 10/13/2018 11:05:44 10/13/2018 13:00:38 Routine gynecologic examination done 4758587657 9101 Z01.419 ovarian cancer screening , informatio n given. prior tvh ar, no sign of recurrent prolapse. Screening for malignant neoplasm of cervix 274073936 Z12.4 pap cuff 5 year if normal Screening for malignant neoplasm of breast 378359801 Z12.31 up to date Atrophic vaginitis 64421 000 N95.2 was on vagifem, still dry. will try the cream. Mixed urin janneth incontinence 051395048 N39.46 has both stress and urge incontinen ce, discussed tx options for both. no sign of prolapse just mobility urethra. [id number] VALE FABIAN MD SURGERY SCHEDULE [address] [place] [address] 10/19/2018 12:24:37 10/19/2018 12:26:06 [id number] VALE FABIAN MD PULMONARY [address] [facility] [place] [address] 10/27/2018 15:31:39 11/01/2018 08:23:36 Bronchiectasis 29289946 J47.9 Mucinex. Saline nebs + flutter valve. I suspect MAC. Awaiting AFBs. Severe per sistent asthma 529727152 J45.50 Eosinophil ic Asthma. Trelegy + singular. Continue singulair. Failed symbicort, breo, dulera. BAL Eos 5%. Serum Eosinophil s 712 Serum IgE 380. Numerous exacerbati ons requiring steroids in past year in past year. Starting on Dupixent to spare her continued steroid exposure. She already has osteoporos is on alendronat e. 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 BAL fungal culture negative. Central Bronchiect asis with mucous plugging. Mold in house needs to be cleaned. Chronic ob structive pulmonary disease 80487604 J44.9 Overlap with asthma. Chronic Bronchitis subtype, likely from uncontroll ed asthma + bronchiect asis. FEV1 1.40 64% despite full inhaler therapy. Continue trelegy. Anti-nucle ar factor detected 686941075 R76.8 SINCERE 1:160. Homogenous . DSDNA negative. suggestive of lupus or drug induced lupus. Possible false positive due to infection. Will repeat in a few months when bronchiect asis and asthma under control. If still positive, I will refer her to rheum for evaluation . [id number] VALE FABIAN MD PULMONARY [address] [facility], [address] [place] [address] 12/08/2018 15:18:18 12/14/2018 07:10:00 Severe persistent asthma 901929967 J45.50 Eosinophil ic Asthma. Trelegy + singular. Continue singulair. Failed symbicort, breo, dulera. BAL Eos 5%. Serum Eosinophil s 712 Serum IgE 380. Numerous exacerbati ons requiring steroids in past year in past year. Starting on Dupixent to spare her continued steroid exposure. She already has osteoporos is on alendronat e. Dupixent denied by insurance. Working on appeal. It as denied because she didn't have a bronchodil ator response on spirometry . She didn't have a + BD response because her testing was done while being maximally dilated on long acting inhalers (plus she has a non reversible component from her bronchiect asis). With another exacerbati on, I will work on appealing the decision. Bronchiectasis 78490228 J47.9 Mucinex. Saline nebs + flutter valve. I suspected MAC, but BAL AFB negative after 6 weeks. Awaiting AFBs. Treating for exacerbati on with steroids and antibiotic s. They will reculture and recheck her Eos at home before starting therapy. Diflucan if she developes thrush. Allergic bronchopulmonary mycosis 2472823489 07545 J82 IgE + to aspergillu s, penicilium , alternia. BAL fungal culture negative. Central Bronchiect asis with mucous plugging. Mold in house needs to be cleaned. Chronic ob structive pulmonary disease 72942855 J44.9 Overlap with asthma. Chronic Bronchitis subtype, likely from uncontroll ed asthma + bronchiect asis. FEV1 1.40 64% despite full inhaler therapy. Continue trelegy. Anti-nucle ar factor detected 801884030 R76.8 SINCERE 1:160. Homogenous . DSDNA negative. suggestive of lupus or drug induced lupus. Possible false positive due to infection. Will repeat in a few months when bronchiect asis and asthma under control. If still positive, I will refer her to rheum for evaluation . [id number] VALE FABIAN MD PULMONARY [address] [facility], [address] [place] [address] 03/09/2019 10:18:26 03/10/2019 09:32:52 Severe persistent asthma 322258645 J45.50 Eosinophil ic Asthma. Trelegy + singular. Continue singulair. Failed symbicort, breo, dulera. BAL Eos 5%. Serum Eosinophil s 712. 774. Serum IgE 380. Numerous exacerbati ons requiring steroids in past year in past year (4 times in 8 months). Dupixent to spare her continued steroid exposure. She already has osteoporos is on alendronat e. Dupixent denied by insurance. It as denied because she didn't have a bronchodil ator response on spirometry . She didn't have a + BD response because her testing was done while being maximally dilated on long acting inhalers (plus she has a non reversible component from her bronchiect asis). She has had another exacerbati on requiring steroids since being denied Dupixent. I will reapply to get her on an anti eosinophil ic agent. Bronchiectasis 89238224 J47.9 Mucinex. Saline nebs + flutter valve. I suspected MAC, but BAL AFB negative after 6 weeks. Allergic bronchopulmonary mycosis 9866220722 49934 J82 IgE + to aspergillu s, penicilium , alternia. BAL fungal culture negative. Central Bronchiect asis with mucous plugging. Mold in house needs to be cleaned. Chronic ob structive pulmonary disease 75325970 J44.9 Overlap with asthma. Chronic Bronchitis subtype, likely from uncontroll ed asthma + bronchiect asis. FEV1 1.40 64% despite full inhaler therapy. Continue trelegy. Anti-nucle ar factor detected 051457593 R76.8 SINCERE 1:160. Homogenous . DSDNA negative. suggestive of lupus or drug induced lupus. Possible false positive due to infection. Will repeat in a few months when bronchiect asis and asthma under control. If still positive, I will refer her to rheum for evaluation . Posterior rhinorrhea 758 76851 R09.82 Continue Flonase. Adding Ipra. Gastroesop hageal reflux disease without esophagitis 222888378 K21.9 PPI in AM. H2 marie PRN in evening for breakthrou gh. [id number] VALE FABIAN MD PULMONARY [address] [facility], [address] [place] [address] 05/31/2019 10:19:51 06/05/2019 11:51:47 Administration of influenza vaccine 43774626 Z23 Severe per sistent asthma 005153568 J45.50 Eosinophil ic Asthma. Trelegy + singular. Continue singulair. Failed symbicort, breo, dulera. BAL Eos 5%. Serum Eosinophil s 712. 774. Serum IgE 380. Numerous exacerbati ons requiring steroids in past year in past year (6 times in 10 months). Dupixent to spare her continued steroid exposure. She already has osteoporos is on alendronat e. Dupixent denied by insurance. It as denied because she didn't have a bronchodil ator response on spirometry . She didn't have a + BD response because her testing was done while being maximally dilated on long acting inhalers (plus she has a non reversible component from her bronchiect asis). Repeat Spirometry with LAMA on hold revealed a 26% (310 mL) improvemen t in FEV1 consistent with asthmatic bronchodil ator response. She has had 3 exacerbati ons requiring steroids since being denied Dupixent. I will reapply to get her on an anti eosinophil ic agent. Sample of Fasenra today. RTC in 1 month for next dose. Bronchiectasis 16569839 J47.9 Mucinex. Saline nebs + flutter valve. I suspected MAC, but BAL AFB negative after 6 weeks. Recurrent strep pneumo infections despite have PCV 13 in 2015 and PPV 23 in 2018. It is possible that he is being infected by non vaccinated serotypes, but I will refer her to Dr. Pat for pneumococc al immuno testing. Allergic bronchopulmonary mycosis 8216076483 00827 J82 IgE + to aspergillu s, penicilium , alternia. BAL fungal culture negative. Central Bronchiect asis with mucous plugging. Mold in house needs to be cleaned. Chronic ob structive pulmonary disease 29063760 J44.9 Overlap with asthma. Chronic Bronchitis subtype, likely from uncontroll ed asthma + bronchiect asis. Continue trelegy. Anti-nucle ar factor detected 071703004 R76.8 SINCERE 1:160. Homogenous . DSDNA negative. suggestive of lupus or drug induced lupus. Possible false positive due to infection. Will repeat in a few months when bronchiect asis and asthma under control. If still positive, I will refer her to rheum for evaluation . Posterior rhinorrhea 758 51647 R09.82 Continue Flonase. + Ipra. Gastroesop hageal reflux disease without esophagitis 116148548 K21.9 PPI in AM. H2 marie PRN in evening for breakthrou gh. [id number] JUSTO PAT MD ALLERGY [address] [facility] [address] [place] [address] 06/05/2019 07:40:35 06/05/2019 15:25:34 Allergic rhinitis 33799119 J30.9 Perennial with seasonal exacerbati on. Positive to mold, and dust mites before, allergy test was done 25 years ago. discussed environmen zoey avoidance strategy continue Flonase and zyrtec as needed Recurrent acute sinusitis 465734367 J01.91 anti-aller gy as above History of recurrent pneumonia 642915030 Z87.01 recommend immune function evaluation Allergy to penicillin 91 326523 Z88.0 she passed oral challenge of amoxicilli n ok to have penicillin group medication s in the future Severe per sistent asthma 220214705 J45.50 BAL eos 5%, Eos 774 in serum, likely eosinophil ic type numerous prednisone use for asthma exacerbati ons continue trelegy continue fasenra albuterol PRN Gastroesop hageal reflux disease without esophagitis 635921752 K21.9 continue pantoprazo le daily Bronchiectasis 35808591 J47.9 [id number] JUSTO PAT MD ALLERGY [address] [facility] [place] [address] 06/19/2019 16:05:26 06/20/2019 10:28:05 Allergic rhinitis 91405656 J30.9 Perennial with seasonal exacerbati on. Positive to mold, and dust mites before, allergy test was done 25 years ago. continue environmen zoey avoidance strategy continue Flonase and zyrtec as needed Recurrent acute sinusitis 827529841 J01.91 anti-aller gy as above follow up with ENT History of recurrent pneumonia 125093009 Z87.01 recommend immune function evaluation in Mid- [place] Allergy to penicillin 91 746652 Z88.0 she passed oral challenge of amoxicilli n ok to have penicillin group medication s in the future Severe per sistent asthma 116842796 J45.50 BAL eos 5%, Eos 774 in serum, likely eosinophil ic type numerous prednisone use for asthma exacerbati ons continue trelegy continue fasenra albuterol PRN Gastroesop hageal reflux disease without esophagitis 155284611 K21.9 continue pantoprazo le daily Bronchiectasis 58640496 J47.9 Candidiasis of mouth 797 76237 B37.0 recommend nystatin oral suspension Hypogammaglobulinemia 11 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 D80.1 CVID VS secondary to recurrent prednisone use discussed benefit and risk of IgG replacemen t therapy [id number] MD KI LIZAMA III ENT [address] [place] [address] 06/27/2019 14:47:51 06/27/2019 15:55:46 Sinusitis 43836774 J32.9 Asthma 240382481 J45.90 9 Pulmonary eosinophilia 270014920 J82 Deviated nasal septum 12 3685261 J34.2 -right Hypertroph y of nasal turbinates 18137964 J34.3 L>R History of recurrent pneumonia 985350462 Z87.01 Candidiasis of mouth 797 44315 B37.0 -hx; controlled with nystatin [id number] VALE FABIAN MD PULMONARY [address] [facility], [address] [place] [address] 07/04/2019 09:59:39 07/14/2019 14:49:13 Severe persistent asthma 919787398 J45.50 Eosinophil ic Asthma. Trelegy + singular. Continue singulair. Failed symbicort, breo, dulera. BAL Eos 5%. Serum Eosinophil s 712. 774. Serum IgE 380. Numerous exacerbati ons requiring steroids in past year in past year (6 times in 10 months). Great initial response to Fasenra #1. #2 today. Bronchiectasis 95402862 J47.9 Mucinex. Saline nebs + flutter valve. I suspected MAC, but BAL AFB negative after 6 weeks. Recurrent strep pneumo infections despite have PCV 13 in 2015 and PPV 23 in 2018. Poor response to vaccinatio n. Dr. Pat suspects CVID. Repeat IGG when off steroid for prolonged period of time. Allergic bronchopulmonary mycosis 7249864981 17577 J82 IgE + to aspergillu s, penicilium , alternia. BAL fungal culture negative. Central Bronchiect asis with mucous plugging. Mold in house needs to be cleaned. Chronic ob structive pulmonary disease 76419967 J44.9 Overlap with asthma. Chronic Bronchitis subtype, likely from uncontroll ed asthma + bronchiect asis. Continue trelegy. Anti-nucle ar factor detected 400729436 R76.8 SINCERE 1:160. Homogenous . DSDNA negative. suggestive of lupus or drug induced lupus. Possible false positive due to infection. Will repeat in a few months when bronchiect asis and asthma under control. If still positive, I will refer her to rheum for evaluation . Posterior rhinorrhea 758 86182 R09.82 Continue Flonase. + Ipra. Gastroesop hageal reflux disease without esophagitis 674739774 K21.9 PPI in AM. H2 marie PRN in evening for breakthrou gh. On examina tion - hoarseness 591132806 R49.8 Possibly from bronchitis . Ok to take cipro. To see ENT today. [id number] MD KI LIZAMA III ENT [address] [place] [address] 07/04/2019 15:41:12 07/05/2019 09:25:58 Chronic sinusitis 55363451 J32.9 Asthma 949516479 J45.90 9 Wheezing 57334064 R06.2 Chronic bronchitis 80377 004 J42 Recurrent pneumonia 6990 39179 J18.9 Acute laryngitis 7323939 J04.0 Polyp of n mino cavity and/or nasal sinus 369293272 J33.9 Laryngopha ryngeal reflux 090962883 K21.9 [id number] VALE FABIAN MD PULMONARY [address] [facility], [address] [place] [address] 08/02/2019 07:55:35 08/02/2019 12:50:06 Severe persistent asthma 093110207 J45.50 Eosinophil ic Asthma. Trelegy + singular. Continue singulair. Failed symbicort, breo, dulera. BAL Eos 5%. Serum Eosinophil s 712. 774. Serum IgE 380. Numerous exacerbati ons requiring steroids in past year in past year (6 times in 10 months). Great initial response to Fasenra #1. #2. #3 today. Bronchiectasis 23436384 J47.9 Mucinex. Saline nebs + flutter valve. I suspected MAC, but BAL AFB negative after 6 weeks. Recurrent strep pneumo infections despite have PCV 13 in 2015 and PPV 23 in 2018. Poor response to vaccinatio n. Dr. Pat suspects CVID. Repeat IGG when off steroid for prolonged period of time. Allergic bronchopulmonary mycosis 5396003968 55872 J82 IgE + to aspergillu s, penicilium , alternia. BAL fungal culture negative. Central Bronchiect asis with mucous plugging. Mold in house needs to be cleaned. Chronic ob structive pulmonary disease 10214496 J44.9 Overlap with asthma. Chronic Bronchitis subtype, likely from uncontroll ed asthma + bronchiect asis. Continue trelegy. Anti-nucle ar factor detected 876990073 R76.8 SINCERE 1:160. Homogenous . DSDNA negative. suggestive of lupus or drug induced lupus. Possible false positive due to infection. Will repeat in a few months when bronchiect asis and asthma under control. If still positive, I will refer her to rheum for evaluation . Posterior rhinorrhea 758 43170 R09.82 Continue Flonase. + Ipra. Gastroesop hageal reflux disease without esophagitis 054005778 K21.9 PPI in AM. H2 marie PRN in evening for breakthrou gh. Fever 274842765 R50.9 Likely due to bronchiect asis, but no cough. She has a headache that I find concerning but no nuchal rigidity or other neurologic symptoms. I will treat her with Aug. I cautioned her that if she has any neck stiffening , confusion or worsened headache, that her will need to will need to go to the hospital for evaluation for possible meningitis . [id number] VALE FABIAN MD PULMONARY [address] [facility], [address] [place] [address] 09/27/2019 10:16:28 09/27/2019 11:25:37 Severe persistent asthma 321429430 J45.50 Eosinophil ic Asthma. Trelegy + singular. Continue singulair. Failed symbicort, breo, dulera. BAL Eos 5%. Serum Eosinophil s 712. 774. Serum IgE 380. After fasenra started - Eos 0, IgE 857. Numerous exacerbati ons requiring steroids in past year in past year (6 times in 10 months). Great initial response to Fasenra #1. #2. #3 today. Flare ups as she spaced out to q8 dosing. Bronchiectasis 34832705 J47.9 Mucinex. Saline nebs + flutter valve. I suspected MAC, but BAL AFB negative after 6 weeks. Recurrent strep pneumo infections despite have PCV 13 in 2015 and PPV 23 in 2018. Poor response to vaccinatio n. Dr. Pat suspects CVID. Repeat IGG when off steroid for prolonged period of time. Allergic bronchopulmonary mycosis 6487857169 92266 J82 IgE + to aspergillu s, penicilium , alternia. BAL fungal culture negative. Central Bronchiect asis with mucous plugging. Mold in house needs to be cleaned. Chronic ob structive pulmonary disease 62411178 J44.9 Overlap with asthma. Chronic Bronchitis subtype, likely from uncontroll ed asthma + bronchiect asis. Continue trelegy. Anti-nucle ar factor detected 113822639 R76.8 SINCERE 1:160. Homogenous . DSDNA negative. suggestive of lupus or drug induced lupus. Possible false positive due to infection. Will repeat in a few months when bronchiect asis and asthma under control. If still positive, I will refer her to rheum for evaluation . Posterior rhinorrhea 758 78382 R09.82 Continue Flonase. + Ipra. Gastroesop hageal reflux disease without esophagitis 256577541 K21.9 PPI in AM. H2 marie PRN in evening for breakthrou gh. Acute exac erbation of bronchiectasis 592580360 J47.1 [id number] VALE FABIAN MD PULMONARY [address] [facility], [address] [place] [address] 10/04/2019 11:04:20 10/04/2019 13:36:23 Severe persistent asthma 840748384 J45.50 Eosinophil ic Asthma. Trelegy + singular. Continue singulair. Failed symbicort, breo, dulera. BAL Eos 5%. Serum Eosinophil s 712. 774. Serum IgE 380. After fasenra started - Eos 0, IgE 857. Numerous exacerbati ons requiring steroids in past year in past year (6 times in 10 months). Great initial response to Fasenra #1. #2. #3 today. Flare ups as she spaced out to q8 dosing. Bronchiectasis 54573012 J47.9 Mucinex. Saline nebs + flutter valve. I suspected MAC, but BAL AFB negative after 6 weeks. Recurrent strep pneumo infections despite have PCV 13 in 2015 and PPV 23 in 2018. Poor response to vaccinatio n. Dr. Pat suspects CVID. Repeat IGG when off steroid for prolonged period of time. Overall, her imaging has improved but she still has classic signs of mucus plugging suggestive of ongoing ABPM. Given that she has had continued exacerbati ons despite Trelegy, saline nebs, mucomyst nebs, duonebs, flutter valve, fasenra, I will step up her regular airway clearance to include a percussion vest. She needs to do her Mucomyst plus DuoNeb at least once a night followed by a session of vest therapy. Increased frequency during an exacerbati on. Allergic bronchopulmonary mycosis [id number] 70246 J82 IgE + to aspergillu s, penicilium , alternia. BAL fungal culture negative. Central Bronchiect asis with mucous plugging. Mold in house needs to be cleaned. Chronic ob structive pulmonary disease 34852721 J44.9 Overlap with asthma. Chronic Bronchitis subtype, likely from uncontroll ed asthma + bronchiect asis. Continue trelegy. Anti-nucle ar factor detected 830413792 R76.8 SINCERE 1:160. Homogenous . DSDNA negative. suggestive of lupus or drug induced lupus. Possible false positive due to infection. Will repeat in a few months when bronchiect asis and asthma under control. If still positive, I will refer her to rheum for evaluation . Posterior rhinorrhea 758 96448 R09.82 Continue Flonase. + Ipra. Gastroesop hageal reflux disease without esophagitis 463271346 K21.9 PPI in AM. H2 marie PRN in evening for breakthrou gh. [id number] VALE FABIAN MD PULMONARY [address] [facility], [address] [place] [address] 11/13/2019 13:35:03 11/14/2019 07:02:18 Severe persistent asthma 743990427 J45.50 Eosinophil ic Asthma. Trelegy + singular. Continue singulair. Failed symbicort, breo, dulera. BAL Eos 5%. Serum Eosinophil s 712. 774. Serum IgE 380. After fasenra started - Eos 0, IgE 857. Numerous exacerbati ons requiring steroids in past year in past year (6 times in 10 months). Great initial response to Fasenra #1. #2. #3 today. Flare ups as she spaced out to q8 dosing. She might ultimately need to change to dupixent or go on itraconazo le. Bronchiectasis 60983624 J47.9 Mucinex. Saline nebs + flutter valve. I suspected MAC, but BAL AFB negative after 6 weeks. Recurrent strep pneumo infections despite have PCV 13 in 2015 and PPV 23 in 2018. Poor response to vaccinatio n. Dr. Pat suspects CVID. Repeat IGG when off steroid for prolonged period of time. Overall, her imaging has improved but she still has classic signs of mucus plugging suggestive of ongoing ABPM. Given that she has had continued exacerbati ons despite Trelegy, saline nebs, mucomyst nebs, duonebs, flutter valve, fasenra, percussion vest. She needs to do her Mucomyst plus DuoNeb at least once a night followed by a session of vest therapy. Increased frequency during an exacerbati on. alternate with NaCl nebs Allergic bronchopulmonary mycosis [id number] 43866 J82 IgE + to aspergillu s, penicilium , alternia. BAL fungal culture negative. Central Bronchiect asis with mucous plugging. Mold in house needs to be cleaned. Chronic ob structive pulmonary disease 56090677 J44.9 Overlap with asthma. Chronic Bronchitis subtype, likely from uncontroll ed asthma + bronchiect asis. Continue trelegy. Anti-nucle ar factor detected 213103917 R76.8 SINCERE 1:160. Homogenous . DSDNA negative. suggestive of lupus or drug induced lupus. Possible false positive due to infection. Will repeat in a few months when bronchiect asis and asthma under control. If still positive, I will refer her to rheum for evaluation . Posterior rhinorrhea 758 74114 R09.82 Continue Flonase. + Ipra. Gastroesop hageal reflux disease without esophagitis 860117881 K21.9 PPI in AM. H2 marie PRN in evening for breakthrou gh. Acute exac erbation of bronchiectasis 966344460 J47.1 Given the change in her bacterial leobardo to beta-lacta ab strain, I am going to put her on a course of Levaquin this time. Adding Bromfed. I am trying to minimize her steroids. Continue Fasenra. Continue aggressive airway clearance. I will await her cultures to see if she actually turns positive for a fungus as I suspect this is ABPM [id number] VALE FABIAN MD PULMONARY [address] [facility], [address] [place] [address] 12/06/2019 14:41:59 12/07/2019 08:11:34 Acute exacerbation of bronchiectasis 695187802 J47.1 Given the change in her bacterial leobardo to beta-lacta ab strain, I am going to put her on a course of Levaquin this time. Adding Bromfed. I am trying to minimize her steroids. Continue Fasenra. Continue aggressive airway clearance. I will await her cultures to see if she actually turns positive for a fungus as I suspect this is ABPM Severe per sistent asthma 744819255 J45.50 Eosinophil ic Asthma. Trelegy + singular. Continue singulair. Failed symbicort, breo, dulera. BAL Eos 5%. Serum Eosinophil s 712. 774. Serum IgE 380. After fasenra started - Eos 0, IgE 857. Numerous exacerbati ons requiring steroids in past year in past year (6 times in 10 months). Great initial response to Fasenra. #4 today. Flare ups as she spaced out to q8 dosing. She might ultimately need to change to dupixent if no improvemen t in control on itraconazo le. Bronchiectasis 06548545 J47.9 Mucinex. Saline nebs + flutter valve. I suspected MAC, but BAL AFB negative after 6 weeks. Recurrent strep pneumo infections despite have PCV 13 in 2015 and PPV 23 in 2018. Poor response to vaccinatio n. Dr. Pat suspects CVID. Repeat IGG when off steroid for prolonged period of time. Overall, her imaging has improved but she still has classic signs of mucus plugging suggestive of ongoing ABPM. Given that she has had continued exacerbati ons despite Trelegy, saline nebs, mucomyst nebs, duonebs, flutter valve, fasenra, percussion vest. She needs to do her Mucomyst plus DuoNeb at least once a night followed by a session of vest therapy. Increased frequency during an exacerbati on. alternate with NaCl nebs Allergic bronchopulmonary mycosis 6974600652 31993 J82 IgE + to aspergillu s, penicilium , alternia. BAL fungal culture negative. Central Bronchiect asis with mucous plugging. Mold in house needs to be cleaned. Chronic ob structive pulmonary disease 24544331 J44.9 Overlap with asthma. Chronic Bronchitis subtype, likely from uncontroll ed asthma + bronchiect asis. Continue trelegy. Anti-nucle ar factor detected 560815823 R76.8 SINCERE 1:160. Homogenous . DSDNA negative. suggestive of lupus or drug induced lupus. Possible false positive due to infection. Will repeat in a few months when bronchiect asis and asthma under control. If still positive, I will refer her to rheum for evaluation . Posterior rhinorrhea 758 73405 R09.82 Continue Flonase. + Ipra. Gastroesop hageal reflux disease without esophagitis 403992714 K21.9 PPI in AM. H2 marie PRN in evening for breakthrou gh. [id number] VALE FABIAN MD PULMONARY [address] [facility], [address] [place] [address] 02/05/2020 09:58:22 02/05/2020 10:54:29 Acute exacerbation of bronchiectasis 215935085 J47.1 Given the change in her bacterial leobardo to beta-lacta ab strain, I am going to put her on a course of Levaquin this time. Adding Bromfed. I am trying to minimize her steroids. Continue Fasenra. Continue aggressive airway clearance. I will await her cultures to see if she actually turns positive for a fungus as I suspect this is ABPM Severe per sistent asthma 784492065 J45.50 Eosinophil ic Asthma. Trelegy + singular. Continue singulair. Failed symbicort, breo, dulera. BAL Eos 5%. Serum Eosinophil s 712. 774. Serum IgE 380. After fasenra started - Eos 0, IgE 857. Numerous exacerbati ons requiring steroids in past year in past year (6 times in 10 months). Great initial response to Fasenra. #4 today. Flare ups as she spaced out to q8 dosing. She might ultimately need to change to dupixent if no improvemen t in control on itraconazo le. Bronchiectasis 41131491 J47.9 Mucinex. Saline nebs + flutter valve. I suspected MAC, but BAL AFB negative after 6 weeks. Recurrent strep pneumo infections despite have PCV 13 in 2015 and PPV 23 in 2018. Poor response to vaccinatio n. Dr. Pat suspects CVID. Repeat IGG when off steroid for prolonged period of time. Overall, her imaging has improved but she still has classic signs of mucus plugging suggestive of ongoing ABPM. Given that she has had continued exacerbati ons despite Trelegy, saline nebs, mucomyst nebs, duonebs, flutter valve, fasenra, percussion vest. She needs to do her Mucomyst plus DuoNeb at least once a night followed by a session of vest therapy. Increased frequency during an exacerbati on. alternate with NaCl nebs Allergic bronchopulmonary mycosis 0560571129 71059 J82 IgE + to aspergillu s, penicilium , alternia. BAL fungal culture negative. Central Bronchiect asis with mucous plugging. Mold in house needs to be cleaned. Chronic ob structive pulmonary disease 87996312 J44.9 Overlap with asthma. Chronic Bronchitis subtype, likely from uncontroll ed asthma + bronchiect asis. Continue trelegy. Anti-nucle ar factor detected 400182136 R76.8 SINCERE 1:160. Homogenous . DSDNA negative. suggestive of lupus or drug induced lupus. Possible false positive due to infection. Will repeat in a few months when bronchiect asis and asthma under control. If still positive, I will refer her to rheum for evaluation . Posterior rhinorrhea 758 63864 R09.82 Continue Flonase. + Ipra. Gastroesop hageal reflux disease without esophagitis 233820690 K21.9 PPI in AM. H2 marie PRN in evening for breakthrou gh. [id number] VALE FABIAN MD PULMONARY [address] [facility], [address] [place] [address] 03/27/2020 08:33:42 03/27/2020 09:55:02 Acute exacerbation of bronchiectasis 724445270 J47.1 Given the change in her bacterial leobardo to beta-lacta ab strain, I am going to put her on a course of Levaquin this time. Adding Bromfed. I am trying to minimize her steroids. Continue Fasenra. Continue aggressive airway clearance. I will await her cultures to see if she actually turns positive for a fungus as I suspect this is ABPM Severe per sistent asthma 891592137 J45.50 Eosinophil ic Asthma. Trelegy + singular. Continue singulair. Failed symbicort, breo, dulera. BAL Eos 5%. Serum Eosinophil s 712. 774. Serum IgE 380. After fasenra started - Eos 0, IgE 857. Numerous exacerbati ons requiring steroids in past year in past year (6 times in 10 months). Great initial response to Fasenra. #4 today. Flare ups as she spaced out to q8 dosing. She might ultimately need to change to dupixent if no improvemen t in control on itraconazo le. Bronchiectasis 24327179 J47.9 Mucinex. Saline nebs + flutter valve. I suspected MAC, but BAL AFB negative after 6 weeks. Recurrent strep pneumo infections despite have PCV 13 in 2015 and PPV 23 in 2018. Poor response to vaccinatio n. Dr. Pat suspects CVID. Repeat IGG when off steroid for prolonged period of time. Overall, her imaging has improved but she still has classic signs of mucus plugging suggestive of ongoing ABPM. Given that she has had continued exacerbati ons despite Trelegy, saline nebs, mucomyst nebs, duonebs, flutter valve, fasenra, percussion vest. She needs to do her Mucomyst plus DuoNeb at least once a night followed by a session of vest therapy. Increased frequency during an exacerbati on. alternate with NaCl nebs Allergic bronchopulmonary mycosis 0676879540 50835 J82 IgE + to aspergillu s, penicilium , alternia. BAL fungal culture negative. Central Bronchiect asis with mucous plugging. Mold in house needs to be cleaned. Chronic ob structive pulmonary disease 29503883 J44.9 Overlap with asthma. Chronic Bronchitis subtype, likely from uncontroll ed asthma + bronchiect asis. Continue trelegy. Anti-nucle ar factor detected 404486037 R76.8 SINCERE 1:160. Homogenous . DSDNA negative. suggestive of lupus or drug induced lupus. Possible false positive due to infection. Will repeat in a few months when bronchiect asis and asthma under control. If still positive, I will refer her to rheum for evaluation . Posterior rhinorrhea 338 07745 R09.82 Continue Flonase. + Ipra. Gastroesop hageal reflux disease without esophagitis 959259628 K21.9 PPI in AM. H2 marie PRN in evening for breakthrou gh. [id number] YAMILEX NGUYEN MD [employer] [facility] [address] [place] [address] 04/25/2020 15:01:33 04/25/2020 15:59:20 Routine gynecologic examination done [id number] 9101 Z01.419 ovarian cancer screening , informatio n given. prior tvh ar, no sign of recurrent prolapse. Last Pap of the cuff was 2018. Repeat next Pap of cuff in 2023 Mammogram up-to-date no further leaking brochiecta sis. Dr Fabian. pulmonary. Anxiety 44776277 F41.9 some situationa l issues with husbands health. would like referral to counseling . [id number] VALE FABIAN MD PULMONARY [address] [facility], [address] [place] [address] 05/29/2020 14:53:23 05/29/2020 15:57:42 Severe persistent asthma 586793844 J45.50 Eosinophil ic Asthma. Trelegy + singular. Continue singulair. Failed symbicort, breo, dulera. BAL Eos 5%. Serum Eosinophil s 712. 774. Serum IgE 380. After fasenra started - Eos 0, IgE 857. Numerous exacerbati ons requiring steroids in past year in past year (6 times in 10 months). Great initial response to Fasenra. #5 today. Flare ups as she spaced out to q8 dosing. Fantastic improvemen t in symptoms since starting Fasenra and going to itraconazo le therapy. She still has uptake in symptoms on weeks 7 before her every 8 week injections . Continue Fasenra indefinite ly. Bronchiectasis 94055485 J47.9 Mucinex. Saline nebs + flutter valve. I suspected MAC, but BAL AFB negative after 6 weeks. Recurrent strep pneumo infections despite have PCV 13 in 2015 and PPV 23 in 2018. Poor response to vaccinatio n. Dr. Pat suspects CVID. Repeat IGG when off steroid for prolonged period of time. Overall, her imaging has improved but she still has classic signs of mucus plugging suggestive of ongoing ABPM. Given that she has had continued exacerbati ons despite Trelegy, saline nebs, mucomyst nebs, duonebs, flutter valve, fasenra, percussion vest. She needs to do her Mucomyst plus DuoNeb at least once a night followed by a session of vest therapy. Increased frequency during an exacerbati on. alternate with NaCl nebs Allergic bronchopulmonary mycosis 1376905529 13746 B49 IgE + to aspergillu s, penicilium , alternia. BAL fungal culture negative. Central Bronchiect asis with mucous plugging. Mold in house needs to be cleaned. Sputum with penicillin . Completed 6 months of itraconazo le in the fall of 2019. Good response to itraconazo le therapy. Chronic ob structive pulmonary disease 00707234 J44.9 Overlap with asthma. Chronic Bronchitis subtype, likely from uncontroll ed asthma + bronchiect asis. Continue trelegy. Anti-nucle ar factor detected 392647759 R76.8 SINCERE 1:160. Homogenous . DSDNA negative. suggestive of lupus or drug induced lupus. Possible false positive due to infection. Will repeat in a few months when bronchiect asis and asthma under control. If still positive, I will refer her to rheum for evaluation . Posterior rhinorrhea 758 67432 R09.82 Continue Flonase. + Ipra. Gastroesop hageal reflux disease without esophagitis 190170410 K21.9 PPI in AM. H2 marie PRN in evening for breakthrou gh. [id number] VALE FABIAN MD PULMONARY [address] [facility], [address] [place] [address] 07/24/2020 11:02:59 07/24/2020 14:08:39 Severe persistent asthma 684575701 J45.50 Eosinophil ic Asthma. Trelegy + singular. Continue singulair. Failed symbicort, breo, dulera. BAL Eos 5%. Serum Eosinophil s 712. 774. Serum IgE 380. After fasenra started - Eos 0, IgE 857. Numerous exacerbati ons requiring steroids in past year in past year (6 times in 10 months). Great response to Fasenra. Redevelopm ent of symptoms on week 7 after each dose that resolve with her dose. Continue q8 wk dosing indefinite ly. Bronchiectasis 92227481 J47.9 Mucinex. Saline nebs + flutter valve. I suspected MAC, but BAL AFB negative after 6 weeks. Recurrent strep pneumo infections despite have PCV 13 in 2014 and PPV 23 in 2018. Poor response to vaccinatio n. Dr. Pat suspects CVID. Repeat IGG when off steroid for prolonged period of time. Overall, her imaging has improved but she still has classic signs of mucus plugging suggestive of ongoing ABPM. Given that she has had continued exacerbati ons despite Trelegy, saline nebs, mucomyst nebs, duonebs, flutter valve, fasenra, percussion vest. She needs to do her Mucomyst plus DuoNeb at least once a night followed by a session of vest therapy. Increased frequency during an exacerbati on. alternate with NaCl nebs. Previous poor response to pneumococc al vaccinatio ns. Vaccinatio n cycle restarted with PCV 13 in 07/2020. Plan to give PPV 23 in 07/2021. Allergic bronchopulmonary mycosis 5326923134 92327 B49 IgE + to aspergillu s, penicilium , alternia. BAL fungal culture negative. Central Bronchiect asis with mucous plugging. Mold in house needs to be cleaned. Sputum with penicillin . Completed 6 months of itraconazo le in the fall of 2019. Good response to itraconazo le therapy. Chronic ob structive pulmonary disease 77281318 J44.9 Overlap with asthma. Chronic Bronchitis subtype, likely from uncontroll ed asthma + bronchiect asis. Continue trelegy. Anti-nucle ar factor detected 747640206 R76.8 SINCERE 1:160. Homogenous . DSDNA negative. suggestive of lupus or drug induced lupus. Possible false positive due to infection. Will repeat in a few months when bronchiect asis and asthma under control. If still positive, I will refer her to rheum for evaluation . Posterior rhinorrhea 758 91329 R09.82 Continue Flonase. + Ipra. Gastroesop hageal reflux disease without esophagitis 399949171 K21.9 PPI in AM. H2 marie PRN in evening for breakthrou gh. Asthma 968230681 J45.90 9 Currently stable on symbicort 80 and singulair, but 2 exacerbati ons every year would qualify her for potential biologic therapy. She has overlapped to COPD. Checking IgE and Eos to look for biologic targets. Administra tion of pneumococcal vaccine 44916018 Z23 [id number] VALE FABIAN MD PULMONARY [address] [facility], [address] [place] [address] 09/25/2020 11:47:12 09/27/2020 08:41:49 Asthma 639336857 J45.909 Severe per sistent asthma 159123055 J45.50 Eosinophil ic Asthma. Trelegy + singular. Continue singulair. Failed symbicort, breo, dulera. BAL Eos 5%. Serum Eosinophil s 712. 774. Serum IgE 380. After fasenra started - Eos 0, IgE 857. Numerous exacerbati ons requiring steroids in past year in past year (6 times in 10 months). Great response to Fasenra. Redevelopm ent of symptoms on week 7 after each dose that resolve with her dose. Continue q8 wk dosing indefinite ly. Changing to home autoinject or if possible. Bronchiectasis 96435617 J47.9 Mucinex. Saline nebs + flutter valve. I suspected MAC, but BAL AFB negative after 6 weeks. Recurrent strep pneumo infections despite have PCV 13 in 2015 and PPV 23 in 2018. Poor response to vaccinatio n. Dr. Pat suspects CVID. Repeat IGG when off steroid for prolonged period of time. Overall, her imaging has improved but she still has classic signs of mucus plugging suggestive of ongoing ABPM. Given that she has had continued exacerbati ons despite Trelegy, saline nebs, mucomyst nebs, duonebs, flutter valve, fasenra, percussion vest. She needs to do her Mucomyst plus DuoNeb at least once a night followed by a session of vest therapy. Increased frequency during an exacerbati on. alternate with NaCl nebs. Previous poor response to pneumococc al vaccinatio ns. Vaccinatio n cycle restarted with PCV 13 in 07/2020. Plan to give PPV 23 in 07/2021. Allergic bronchopulmonary mycosis [id number] 84776 B49 IgE + to aspergillu s, penicilium , alternia. BAL fungal culture negative. Central Bronchiect asis with mucous plugging. Mold in house needs to be cleaned. Sputum with penicillin . Completed 6 months of itraconazo le in the fall of 2019. Good response to itraconazo le therapy. Chronic ob structive pulmonary disease 56808236 J44.9 Overlap with asthma. Chronic Bronchitis subtype, likely from uncontroll ed asthma + bronchiect asis. Continue trelegy. Anti-nucle ar factor detected 022706086 R76.8 SINCERE 1:160. Homogenous . DSDNA negative. suggestive of lupus or drug induced lupus. Possible false positive due to infection. Will repeat in a few months when bronchiect asis and asthma under control. If still positive, I will refer her to rheum for evaluation . Posterior rhinorrhea 758 57747 R09.82 Continue Flonase. + Ipra. Gastroesop hageal reflux disease without esophagitis 080567132 K21.9 PPI in AM. H2 marie PRN in evening for breakthrou gh. [id number] VALE FABIAN MD PULMONARY [address] [facility], [address] [place] [address] 03/05/2021 07:46:19 03/06/2021 08:36:06 Severe persistent asthma 379057318 J45.50 Eosinophil ic Asthma. Trelegy + singular. Continue singulair. Failed symbicort, breo, dulera. BAL Eos 5%. Serum Eosinophil s 712. 774. Serum IgE 380. After fasenra started - Eos 0, IgE 857. Numerous exacerbati ons requiring steroids in past year in past year (6 times in 10 months). Great response to Fasenra. Redevelopm ent of symptoms on week 7 after each dose that resolve with her dose. Continue q8 wk dosing indefinite ly. Changing to home autoinject or if possible. Bronchiectasis 21419578 J47.9 Mucinex. Saline nebs + flutter valve. I suspected MAC, but BAL AFB negative after 6 weeks. Recurrent strep pneumo infections despite have PCV 13 in 2014 and PPV 23 in 2017. Poor response to vaccinatio n. Dr. Pat suspects CVID. Repeat IGG when off steroid for prolonged period of time. Overall, her imaging has improved but she still has classic signs of mucus plugging suggestive of ongoing ABPM. Given that she has had continued exacerbati ons despite Trelegy, saline nebs, mucomyst nebs, duonebs, flutter valve, fasenra, percussion vest. She needs to do her Mucomyst plus DuoNeb at least once a night followed by a session of vest therapy. Increased frequency during an exacerbati on. alternate with NaCl nebs. Previous poor response to pneumococc al vaccinatio ns. Vaccinatio n cycle restarted with PCV 13 in 07/2020. Plan to give PPV 23 in 07/2021. Allergic bronchopulmonary mycosis [id number] 19914 B49 IgE + to aspergillu s, penicilium , alternia. BAL fungal culture negative. Central Bronchiect asis with mucous plugging. Mold in house needs to be cleaned. Sputum with penicillin . Completed 6 months of itraconazo le in the fall of 2019. Good response to itraconazo le therapy. Chronic ob structive pulmonary disease 73147540 J44.9 Overlap with asthma. Chronic Bronchitis subtype, likely from uncontroll ed asthma + bronchiect asis. Continue trelegy. Anti-nucle ar factor detected [id number] R76.8 SINCERE 1:160. Homogenous . DSDNA negative. suggestive of lupus or drug induced lupus. Possible false positive due to infection. Will repeat in a few months when bronchiect asis and asthma under control. If still positive, I will refer her to rheum for evaluation . Posterior rhinorrhea 758 41586 R09.82 Continue Flonase. + Ipra. Gastroesop hageal reflux disease without esophagitis [id number] K21.9 PPI in AM. H2 marie PRN in evening for breakthrou gh. Acute exac erbation of bronchiectasis 281423655 J47.1 Refractory /only partially treated with 10 days of Levaquin. Previous cultures with beta lactamase positive Haemophilu s parainflue nza. Given the refractory nature and the beta-lacta ab positive result in the past, I think she warrants combined overlappin g therapy with Augmentin plus Cipro. [id number] VALE FABIAN MD PULMONARY [address] [facility], [address] [place] [address] 03/19/2021 10:18:58 03/19/2021 10:43:57 Severe persistent asthma 831338949 J45.50 Eosinophil ic Asthma. Trelegy + singular. Continue singulair. Failed symbicort, breo, dulera. BAL Eos 5%. Serum Eosinophil s 712. 774. Serum IgE 380. After fasenra started - Eos 0, IgE 857. Numerous exacerbati ons requiring steroids in past year in past year (6 times in 10 months). Great response to Fasenra. Redevelopm ent of symptoms on week 7 after each dose that resolve with her dose. Continue q8 wk dosing indefinite ly. Changing to home autoinject or if possible. ---- She is doing well. Continue Fasenra. Bronchiectasis 93830776 J47.9 Mucinex. Saline nebs + flutter valve. I suspected MAC, but BAL AFB negative after 6 weeks. Recurrent strep pneumo infections despite have PCV 13 in 2015 and PPV 23 in 2018. Poor response to vaccinatio n. Dr. Pat suspects CVID. Repeat IGG when off steroid for prolonged period of time. Overall, her imaging has improved but she still has classic signs of mucus plugging suggestive of ongoing ABPM. Given that she has had continued exacerbati ons despite Trelegy, saline nebs, mucomyst nebs, duonebs, flutter valve, fasenra, percussion vest. She needs to do her Mucomyst plus DuoNeb at least once a night followed by a session of vest therapy. Increased frequency during an exacerbati on. alternate with NaCl nebs. Previous poor response to pneumococc al vaccinatio ns. Vaccinatio n cycle restarted with PCV 13 in 07/2020. Plan to give PPV 23 in 07/2021. Allergic bronchopulmonary mycosis [id number] 13515 B49 IgE + to aspergillu s, penicilium , alternia. BAL fungal culture negative. Central Bronchiect asis with mucous plugging. Mold in house needs to be cleaned. Sputum with penicillin . Completed 6 months of itraconazo le in the fall of 2019. Good response to itraconazo le therapy. Chronic ob structive pulmonary disease 50105697 J44.9 Overlap with asthma. Chronic Bronchitis subtype, likely from uncontroll ed asthma + bronchiect asis. Continue trelegy. Anti-nucle ar factor detected 246357749 R76.8 SINCERE 1:160. Homogenous . DSDNA negative. suggestive of lupus or drug induced lupus. Possible false positive due to infection. Will repeat in a few months when bronchiect asis and asthma under control. If still positive, I will refer her to rheum for evaluation . Posterior rhinorrhea 758 12570 R09.82 Continue Flonase. + Ipra. Gastroesop hageal reflux disease without esophagitis 703668237 K21.9 PPI in AM. H2 marie PRN in evening for breakthrou gh. [id number] CARLOS SIMMS III, MD [facility] [address] [place] [address] 03/28/2021 09:15:04 03/28/2021 11:10:24 Anterior epistaxis 189286420 R04.0 Nasal vestibulitis 32794 000 J34.89 Chronic sinusitis 643570 00 J32.9 Asthma 908471260 J45.90 9 [id number] VALE FABIAN MD PULMONARY [address] [facility], [address] [place] [address] 07/16/2021 10:08:12 07/16/2021 11:07:58 Severe persistent asthma 199243754 J45.50 Eosinophil ic Asthma. Trelegy + singular. Continue singulair. Failed symbicort, breo, dulera. BAL Eos 5%. Serum Eosinophil s 712. 774. Serum IgE 380. After fasenra started - Eos 0, IgE 857. Numerous exacerbati ons requiring steroids in past year in past year (6 times in 10 months). Great response to Fasenra. Redevelopm ent of symptoms on week 7 after each dose that resolve with her dose. Continue q8 wk dosing indefinite ly. Changing to home autoinject or if possible. ---- Continue Fasenra. Bronchiectasis 01007159 J47.9 Mucinex. Saline nebs + flutter valve. I suspected MAC, but BAL AFB negative after 6 weeks. Recurrent strep pneumo infections despite have PCV 13 in 2014 and PPV 23 in 2018. Poor response to vaccinatio n. Dr. Pat suspects CVID. Repeat IGG when off steroid for prolonged period of time. Overall, her imaging has improved but she still has classic signs of mucus plugging suggestive of ongoing ABPM. Given that she has had continued exacerbati ons despite Trelegy, saline nebs, mucomyst nebs, duonebs, flutter valve, fasenra, percussion vest. She needs to do her Mucomyst plus DuoNeb at least once a night followed by a session of vest therapy. Increased frequency during an exacerbati on. alternate with NaCl nebs. Previous poor response to pneumococc al vaccinatio ns. Vaccinatio n cycle restarted with PCV 13 in 07/2020. Plan to give PPV 23 in 07/2021. Allergic bronchopulmonary mycosis [id number] 34744 B49 IgE + to aspergillu s, penicilium , alternia. BAL fungal culture negative. Central Bronchiect asis with mucous plugging. Mold in house needs to be cleaned. Sputum with penicillin . Completed 6 months of itraconazo le in the fall of 2019. Good response to itraconazo le therapy in past. Chronic ob structive pulmonary disease 52502317 J44.9 Overlap with asthma. Chronic Bronchitis subtype, likely from uncontroll ed asthma + bronchiect asis. Continue trelegy. Posterior rhinorrhea 758 70964 R09.82 Continue Flonase. + Ipra. Gastroesop hageal reflux disease without esophagitis 071268920 K21.9 PPI in AM. H2 marie PRN in evening for breakthrou gh. Acute exac erbation of bronchiectasis 737373681 J47.1 Given her recent multiple courses of antibiotic s and the yeasty taste in her mouth combined with a history of ABPA, I will put her on a short course of an azole. I will have to use fluconazol e because itraconazo le is not covered. Given how she normally starts with sinus issues and then within a week has a lower respirator y exacerbati on, I will also prescribe antibiotic s and steroids that she can fill if needed this weekend. [id number] VALE FABIAN MD PULMONARY [address] [facility], [address] [place] [address] 10/27/2021 10:08:37 10/27/2021 11:07:36 Severe persistent asthma 940379872 J45.50 Eosinophil ic Asthma. Trelegy + singular. Continue singulair. Failed symbicort, breo, dulera. BAL Eos 5%. Serum Eosinophil s 712. 774. Serum IgE 380. After fasenra started - Eos 0, IgE 857. Numerous exacerbati ons requiring steroids in past year in past year (6 times in 10 months). Great response to Fasenra. Redevelopm ent of symptoms on week 7 after each dose that resolve with her dose. Continue q8 wk dosing indefinite ly. Changing to home autoinject or if possible. ---- Continue Fasenra. Bronchiectasis 20302393 J47.9 Mucinex. Saline nebs + flutter valve. I suspected MAC, but BAL AFB negative after 6 weeks. Recurrent strep pneumo infections despite have PCV 13 in 2015 and PPV 23 in 2018. Poor response to vaccinatio n. Dr. Pat suspects CVID. Repeat IGG when off steroid for prolonged period of time. Overall, her imaging has improved but she still has classic signs of mucus plugging suggestive of ongoing ABPM. Given that she has had continued exacerbati ons despite Trelegy, saline nebs, mucomyst nebs, duonebs, flutter valve, fasenra, percussion vest. She needs to do her Mucomyst plus DuoNeb at least once a night followed by a session of vest therapy. Increased frequency during an exacerbati on. alternate with NaCl nebs. Previous poor response to pneumococc al vaccinatio ns. Vaccinatio n cycle restarted with PCV 13 in 07/2020. Plan to give PPV 23 in 2021. Allergic bronchopulmonary mycosis [id number] 70773 B49 IgE + to aspergillu s, penicilium , alternia. BAL fungal culture negative. Central Bronchiect asis with mucous plugging. Mold in house needs to be cleaned. Sputum with penicillin . Completed 6 months of itraconazo le in the fall of 2019. Good response to itraconazo le therapy in past. Chronic ob structive pulmonary disease 04415395 J44.9 Overlap with asthma. Chronic Bronchitis subtype, likely from uncontroll ed asthma + bronchiect asis. Continue trelegy. Posterior rhinorrhea 758 07563 R09.82 Continue Flonase. + Ipra. Gastroesop hageal reflux disease without esophagitis 091761953 K21.9 PPI in AM. H2 marie PRN in evening for breakthrou gh. [id number] NYA FRANKEL, [employer] [address] [place] [address] 01/20/2022 12:43:53 01/20/2022 17:21:30 Routine gynecologic examination done [id number] 9101 Z01.419 Atrophic vaginitis 75035 000 N95.2 Contact de rmatitis caused by urushiol from [facility] gilberto [id number] L25.5 [id number] VALE FABIAN MD PULMONARY [address] [facility], [address] [place] [address] 03/02/2022 10:06:56 03/02/2022 11:10:53 Severe persistent asthma 447443861 J45.50 Eosinophil ic Asthma. Trelegy + singular. Continue singulair. Failed symbicort, breo, dulera. BAL Eos 5%. Serum Eosinophil s 712. 774. Serum IgE 380. After fasenra started - Eos 0, IgE 857. Numerous exacerbati ons requiring steroids in past year in past year (6 times in 10 months). Great response to Fasenra. Redevelopm ent of symptoms on week 7 after each dose that resolve with her dose. Continue q8 wk dosing indefinite ly. Changing to home autoinject or if possible. ---- Continue Fasenra. Changing to getting it from home to a local infusion center since changing to Medicare. She will be due for her next injection at the beginning of March at [facility] Bronchiectasis 74775982 J47.9 Mucinex. Saline nebs + flutter valve. I suspected MAC, but BAL AFB negative after 6 weeks. Recurrent strep pneumo infections despite have PCV 13 in 2014 and PPV 23 in 2018. Poor response to vaccinatio n. Dr. Pat suspects CVID. Repeat IGG when off steroid for prolonged period of time. Overall, her imaging has improved but she still has classic signs of mucus plugging suggestive of ongoing ABPM. Given that she has had continued exacerbati ons despite Trelegy, saline nebs, mucomyst nebs, duonebs, flutter valve, fasenra, percussion vest. She needs to do her Mucomyst plus DuoNeb at least once a night followed by a session of vest therapy. Increased frequency during an exacerbati on. alternate with NaCl nebs. Previous poor response to pneumococc al vaccinatio ns. Vaccinatio n cycle restarted with PCV 13 in 07/2020 and PPV 23 in 2021. Allergic bronchopulmonary mycosis [id number] 61690 B49 IgE + to aspergillu s, penicilium , alternia. BAL fungal culture negative. Central Bronchiect asis with mucous plugging. Mold in house needs to be cleaned. Sputum with penicillin . Completed 6 months of itraconazo le in the fall of 2019. Good response to itraconazo le therapy in past. Chronic ob structive pulmonary disease 67330952 J44.9 Overlap with asthma. Chronic Bronchitis subtype, likely from uncontroll ed asthma + bronchiect asis. Continue trelegy. Posterior rhinorrhea 758 63669 R09.82 Continue Flonase. + Ipra. Gastroesop hageal reflux disease without esophagitis 154264773 K21.9 PPI in AM. H2 marie PRN in evening for breakthrou gh. [id number] VALE FABIAN MD PULMONARY [address] [facility], [address] [place] [address] 03/24/2022 11:01:50 03/24/2022 11:36:35 Severe persistent asthma 847970445 J45.50 Eosinophil ic Asthma. Trelegy + singular. Continue singulair. Failed symbicort, breo, dulera. BAL Eos 5%. Serum Eosinophil s 712. 774. Serum IgE 380. After fasenra started - Eos 0, IgE 857. Numerous exacerbati ons requiring steroids in past year in past year (6 times in 10 months). Great response to Fasenra. Redevelopm ent of symptoms on week 7 after each dose that resolve with her dose. Continue q8 wk dosing indefinite ly. Changing to home autoinject or if possible. ---- Continue Fasenra. Changing to getting it from home to a local infusion center since changing to Medicare. She will be due for her next injection at the beginning of March at [facility] [id number] VALE FABIAN MD PULMONARY [address] [facility], [place] [address] 06/30/2022 10:30:37 06/30/2022 10:51:57 Severe persistent asthma 937224279 J45.50 Eosinophil ic Asthma. Trelegy + singular. Continue singulair. Failed symbicort, breo, dulera. BAL Eos 5%. Serum Eosinophil s 712. 774. Serum IgE 380. After fasenra started - Eos 0, IgE 857. Numerous exacerbati ons requiring steroids in past year in past year (6 times in 10 months). Great response to Fasenra. Redevelopm ent of symptoms on week 7 after each dose that resolve with her dose. Continue q8 wk dosing indefinite ly. Changing to home autoinject or if possible. ---- Continue Fasenra. Changing to getting it from home to a local infusion center since changing to Medicare. She will be due for her next injection at the beginning of March at [facility] Bronchiectasis 37687140 J47.9 Mucinex. Saline nebs + flutter valve. I suspected MAC, but BAL AFB negative after 6 weeks. Recurrent strep pneumo infections despite have PCV 13 in 2014 and PPV 23 in 2017. Poor response to vaccinatio n. Dr. Pat suspects CVID. Repeat IGG when off steroid for prolonged period of time. Overall, her imaging has improved but she still has classic signs of mucus plugging suggestive of ongoing ABPM. Given that she has had continued exacerbati ons despite Trelegy, saline nebs, mucomyst nebs, duonebs, flutter valve, fasenra, percussion vest. She needs to do her Mucomyst plus DuoNeb at least once a night followed by a session of vest therapy. Increased frequency during an exacerbati on. alternate with NaCl nebs. Previous poor response to pneumococc al vaccinatio ns. Vaccinatio n cycle restarted with PCV 13 in 07/2020 and PPV 23 in 2021. Allergic bronchopulmonary mycosis [id number] 71623 B49 IgE + to aspergillu s, penicilium , alternia. BAL fungal culture negative. Central Bronchiect asis with mucous plugging. Mold in house needs to be cleaned. Sputum with penicillin . Completed 6 months of itraconazo le in the fall of 2019. Good response to itraconazo le therapy in past. Chronic ob structive pulmonary disease 16627144 J44.9 Overlap with asthma. Chronic Bronchitis subtype, likely from uncontroll ed asthma + bronchiect asis. Continue trelegy. Posterior rhinorrhea 758 35667 R09.82 Continue Flonase. + Ipra. Gastroesop hageal reflux disease without esophagitis 712843467 K21.9 PPI in AM. H2 marie PRN in evening for breakthrou gh. Upper resp iratory infection 20470328 J06.9 I suspect this is an exacerbati on of her bronchiect asis. Certainly viral illnesses like COVID are a possibilit y, but she is not had any exposure to people in 5 days and prior to that was not around anybody with respirator y symptoms so I think that is less likely given her history of recurrent bacterial infections . Will put her on a prolonged course of Cipro for potential Pseudomona s coverage given her thick green mucus. If symptoms progress despite being on a fluoroquin olone, she needs to go to the ER for evaluation . [id number] VALE FABIAN MD PULMONARY [address] [facility], [address] [place] [address] 07/07/2022 09:29:42 07/07/2022 10:14:54 Severe persistent asthma 005340963 J45.50 Eosinophil ic Asthma. Trelegy + singular. Continue singulair. Failed symbicort, breo, dulera. BAL Eos 5%. Serum Eosinophil s 712. 774. Serum IgE 380. After fasenra started - Eos 0, IgE 857. Numerous exacerbati ons requiring steroids in past year in past year (6 times in 10 months). Great response to Fasenra. Redevelopm ent of symptoms on week 7 after each dose that resolve with her dose. Continue q8 wk dosing indefinite ly. Changing to home autoinject or if possible. ---- Continue Fasenra. Changing to getting it from home to a local infusion center since changing to Medicare. She will get it at [facility]. Bronchiectasis 03157130 J47.9 Mucinex. Saline nebs + flutter valve. I suspected MAC, but BAL AFB negative after 6 weeks. Recurrent strep pneumo infections despite have PCV 13 in 2015 and PPV 23 in 2018. Poor response to vaccinatio n. Dr. Pat suspects CVID. Repeat IGG when off steroid for prolonged period of time. Overall, her imaging has improved but she still has classic signs of mucus plugging suggestive of ongoing ABPM. Given that she has had continued exacerbati ons despite Trelegy, saline nebs, mucomyst nebs, duonebs, flutter valve, fasenra, percussion vest. She needs to do her Mucomyst plus DuoNeb at least once a night followed by a session of vest therapy. Increased frequency during an exacerbati on. alternate with NaCl nebs. Previous poor response to pneumococc al vaccinatio ns. Vaccinatio n cycle restarted with PCV 13 in 07/2020 and PPV 23 in 2021. Allergic bronchopulmonary mycosis [id number] 92850 B49 IgE + to aspergillu s, penicilium , alternia. BAL fungal culture negative. Central Bronchiect asis with mucous plugging. Mold in house needs to be cleaned. Sputum with penicillin . Completed 6 months of itraconazo le in the fall of 2019. Good response to itraconazo le therapy in past. Chronic ob structive pulmonary disease 92965629 J44.9 Overlap with asthma. Chronic Bronchitis subtype, likely from uncontroll ed asthma + bronchiect asis. Continue trelegy. Posterior rhinorrhea 758 77697 R09.82 Continue Flonase. + Ipra. Gastroesop hageal reflux disease without esophagitis 489885326 K21.9 PPI in AM. H2 marie PRN in evening for breakthrou gh. [id number] ABELARDO SHULTZ PA-C [facility] [address] [place] [address] 08/11/2022 15:10:10 2022 16:47:55 Osteoarthritis of left knee joint 8574320160 73670 M17.12 ASSESSMENT : DJD LEFT knee PLAN:We discussed conservati ve and surgical treatment options for knee arthritis. We discussed the importance of weight loss, and low-impact aerobic activity. We discussed judicious use of NSAIDs, if possible, or Tylenol. We discussed corticoste roid injections and viscosuppl ementation . We discussed bracing, physical therapy, activity modificati on, and use of assistive ambulatory devices. Plan today is for steroid injection PT viscosu pplementat ion viscos upplementa tionCelebr ex 200 mg daily as needed. Did send in prescripti on for meloxicam 15 mg daily if Celebrex is too expensive. Did discuss intra-carmina cular steroid injection but her pain is very minimal at this point. If her pain does worsen, would recommend steroid injection. We will have her follow-up in 1 year or sooner if symptoms do worsen. Follow up prn [id number] VALE FABIAN MD PULMONARY [address] [facility], [address] [place] [address] 08/11/2022 11:24:26 08/11/2022 13:28:04 Severe persistent asthma 433701168 J45.50 Eosinophil ic Asthma. Trelegy + singular. Continue singulair. Failed symbicort, breo, dulera. BAL Eos 5%. Serum Eosinophil s 712. 774. Serum IgE 380. After fasenra started - Eos 0, IgE 857. Numerous exacerbati ons requiring steroids in past year in past year (6 times in 10 months). Great response to Fasenra. Redevelopm ent of symptoms on week 7 after each dose that resolve with her dose. Continue q8 wk dosing indefinite ly. Changing to home autoinject or if possible. ---- Continue Fasenra. Changing to getting it from home to a local infusion center since changing to Medicare. She will get it at [facility]. Bronchiectasis 75998688 J47.9 Mucinex. Saline nebs + flutter valve. I suspected MAC, but BAL AFB negative after 6 weeks. Recurrent strep pneumo infections despite have PCV 13 in 2015 and PPV 23 in 2018. Poor response to vaccinatio n. Dr. Pat suspects CVID. Repeat IGG when off steroid for prolonged period of time. Overall, her imaging has improved but she still has classic signs of mucus plugging suggestive of ongoing ABPM. Given that she has had continued exacerbati ons despite Trelegy, saline nebs, mucomyst nebs, duonebs, flutter valve, fasenra, percussion vest. She needs to do her Mucomyst plus DuoNeb at least once a night followed by a session of vest therapy. Increased frequency during an exacerbati on. alternate with NaCl nebs. Previous poor response to pneumococc al vaccinatio ns. Vaccinatio n cycle restarted with PCV 13 in 07/2020 and PPV 23 in 2021. Allergic bronchopulmonary mycosis [id number] 01583 B49 IgE + to aspergillu s, penicilium , alternia. BAL fungal culture negative. Central Bronchiect asis with mucous plugging. Mold in house needs to be cleaned. Sputum with penicillin . Completed 6 months of itraconazo le in the fall of 2019. Good response to itraconazo le therapy in past. Chronic ob structive pulmonary disease 75730239 J44.9 Overlap with asthma. Chronic Bronchitis subtype, likely from uncontroll ed asthma + bronchiect asis. Continue trelegy. Posterior rhinorrhea 758 05365 R09.82 Continue Flonase. + Ipra. Gastroesop hageal reflux disease without esophagitis 651840924 K21.9 PPI in AM. H2 marie PRN in evening for breakthrou gh. Acute exac erbation of bronchiectasis 066861724 J47.1 While she usually responds well to fluoroquin olones, she has been on a lot of fluoroquin olones recently. I will put her on a combinatio n of cefdinir plus azithromyc in to hopefully discourage antibiotic resistance in her. She doesn't like taking high dose prednisone , so I will just give her 10 mg tablets to use PRN. [id number] VALE FABIAN MD PULMONARY [address] [facility], [address] [place] [address] 01/06/2023 10:23:43 01/06/2023 13:30:36 Severe persistent asthma 195557276 J45.50 Eosinophil ic Asthma. Trelegy + singular. Continue singulair. Failed symbicort, breo, dulera. BAL Eos 5%. Serum Eosinophil s 712. 774. Serum IgE 380. After fasenra started - Eos 0, IgE 857. Numerous exacerbati ons requiring steroids in past year in past year (6 times in 10 months). Great response to Fasenra. Redevelopm ent of symptoms on week 7 after each dose that resolve with her dose. Continue q8 wk dosing indefinite ly. Changing to home autoinject or if possible. ---- Continue Fasenra. Changed to getting it from home to a local infusion center since changing to Medicare. She gets it at [facility]. Bronchiectasis 20128803 J47.9 Mucinex. Saline nebs + flutter valve. I suspected MAC, but BAL AFB negative after 6 weeks. Recurrent strep pneumo infections despite have PCV 13 in 2014 and PPV 23 in 2018. Poor response to vaccinatio n. Dr. Pat suspects CVID. Repeat IGG when off steroid for prolonged period of time. Overall, her imaging has improved but she still has classic signs of mucus plugging suggestive of ongoing ABPM. Given that she has had continued exacerbati ons despite Trelegy, saline nebs, mucomyst nebs, duonebs, flutter valve, fasenra, percussion vest. She needs to do her Mucomyst plus DuoNeb at least once a night followed by a session of vest therapy. Increased frequency during an exacerbati on. alternate with NaCl nebs. Previous poor response to pneumococc al vaccinatio ns. Vaccinatio n cycle restarted with PCV 13 in 07/2020 and PPV 23 in 2021. Allergic bronchopulmonary mycosis 7757551983 55312 B49 IgE + to aspergillu s, penicilium , alternia. BAL fungal culture negative. Central Bronchiect asis with mucous plugging. Mold in house needs to be cleaned. Sputum with penicillin . Completed 6 months of itraconazo le in the fall of 2019. Good response to itraconazo le therapy in past. Chronic ob structive pulmonary disease 12377026 J44.9 Overlap with asthma. Chronic Bronchitis subtype, likely from uncontroll ed asthma + bronchiect asis. Continue trelegy. Posterior rhinorrhea 758 21442 R09.82 Continue Flonase. + Ipra. Gastroesop hageal reflux disease without esophagitis 001879313 K21.9 PPI in AM. H2 marie PRN in evening for breakthrou gh. [id number] JERSEY CHAUDHRY MD PULMON[facility] [address] [facility], [address] [place] [address] 07/05/2023 10:35:40 07/05/2023 15:37:40 Allergic asthma [id number] J45.909 Excellent response to Fesenra as notedAvoid ance emphasized Treat exacerbati ons as below which is exactly what Dr. Fabian didFollow- up in 6 months with PFTs [id number] SAMARA ISBELL PA-C [facility] [address] [place] [address] 08/17/2023 09:50:29 08/17/2023 10:43:10 Pain of left knee joint [id number] 98076 M25.562 Osteoarthr itis of left knee joint [id number] 02076 M17.12 ASSESSMENT : EDGAR LEFT knee PLAN:We discussed conservati ve and surgical treatment options for knee arthritis. We discussed the importance of weight loss, and low-impact aerobic activity. We discussed judicious use of NSAIDs, if possible, or Tylenol. We discussed corticoste roid injections and viscosuppl ementation . We discussed bracing, physical therapy, activity modificati on, and use of assistive ambulatory devices. Plan today is for to continue conservati ve measures. She will continue Celebrex and which I will refill her prescripti on when needed.Cur rently, her pain is very tolerable. She was to hold off on possible CSI injections at this juncture. If pain or new symptoms progress and she will consider going forward. She will follow-up in 6 to 8 months to check on her progress. [id number] DOROTHEA MARTE PA-C PULMONARY [address] [facility], [address] [place] [address] 11/01/2023 09:58:24 11/02/2023 05:02:20 Severe persistent asthma [id number] J45.50 Continue current medication regimen. Patient has had significan t improvemen t in symptoms with Fasenra. Acute lowe r respiratory tract infection [id number] J22 I sent a prescripti on of Augmentin and prednisone for her to start due to recent increase in symptoms. She will call the office if she does not have an improvemen t in symptoms. Bronchiectasis [id number] J47.9 continue airway clearance. Allergic bronchopulmonary mycosis [id number] 10641 B49 IgE + to aspergillu s, penicilium , alternia. BAL fungal culture negative. Central Bronchiect asis with mucous plugging. Chronic ob structive pulmonary disease 08294517 J44.9 Asthma COPD overlap. Continue current medication regimen. Gastroesop hageal reflux disease without esophagitis [id number] K21.9 Continue PPI daily. [id number] SAMARA ISBELL PA-C [facility] [address] [place] [address] 12/17/2023 10:27:54 12/17/2023 11:06:19 Osteoarthritis of left knee joint [id number] 34916 M17.12 ASSESSMENT : DJD LEFT knee PLAN:Ms. Waters is a very pleasant 68-year-ol d woman that returns today for recheck left knee pain. Again, most of her difficulti es are in the medial aspect. She has continued Celebrex as well as low impact aerobic activity since her last visit in August. Again, symptoms are extremely tolerable. Today she rates her pain a 0/10. She continues to care for her grand kids and remain very busy. We discussed conservati ve and surgical treatment options for knee arthritis. We discussed the importance of weight loss, and low-impact aerobic activity. We discussed judicious use of NSAIDs, if possible, or Tylenol. We discussed corticoste roid injections and viscosuppl ementation . We discussed bracing, physical therapy, activity modificati on, and use of assistive ambulatory devices. Again, we will continue with conservati ve measures. She will continue Celebrex and which I will refill her prescripti on when needed. If pain or new symptoms progress and she will consider going forward. She may follow-up on an as-needed basis at this time. Osteoarthr itis of knee [id number] M17.9 [id number] ТАТЬЯНА NG PA-C [facility] [address] [address] 02/21/2024 13:39:18 02/21/2024 14:19:54 Osteoarthritis of left knee joint [id number] 40750 M17.12 ASSESSMENT : DJD LEFT knee PLAN:Ms. Waters is a clem 68-year-ol d woman that returns today for recheck left knee pain. Symptoms remain extremely tolerable. Today she rates her pain a 0/10. She continues to care for her grand kids and remain very busy.We will continue with conservati ve measures. She will continue Celebrex and which I will refill her prescripti on when needed. If pain or new symptoms progress and she will consider going forward.Zina carvered following with PCP for ongoing lab work, discussed celebrex potential side effects.- Risks of NSAIDs discussed including GI upset, GI bleeding, renal and hepatic risks and the risks of cardiovasc ular disease and stroke. Warned patient not to take with other NSAIDs including OTC NSAIDs. Tylenol ok. Continue to follow with PCP for routine labwork to ensure stable kidney/hep atic function. She may follow-up in 6 months with updated xrays. Osteoarthr itis of knee [id number] M17.9 [id number] FRANCO SRINIVASNA MD [facility] [address] [place] [address] 04/14/2024 09:33:21 04/14/2024 11:02:54 Routine gynecologic examination done [id number] 9101 Z01.419 Atrophic vaginitis 06468 000 N95.2 [id number] DOROTHEA MARTE PA-C PULMONARY [address] [facility], [address] [place] [address] 05/08/2024 10:29:09 05/08/2024 13:30:47 Severe persistent asthma [id number] J45.50 Continue current medication regimen. Patient has had significan t improvemen t in symptoms with Fasenra. No signs of acute infection. Bronchiectasis 06353667 J47.9 continue airway clearance. 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 BAL fungal culture negative. Central Bronchiect asis with mucous plugging. Chronic ob structive pulmonary disease 54541884 J44.9 Asthma COPD overlap. Continue current medication regimen. Gastroesop hageal reflux disease without esophagitis 789954523 K21.9 Continue PPI daily. Administra tion of influenza vaccine [id number] Z23 [id number] ТАТЬЯНА NG PA-C [facility] [address] [address] 09/07/2024 10:29:19 09/07/2024 11:14:30 Osteoarthritis of left knee joint [id number] 27992 M17.12 ASSESSMENT : DJD LEFT knee PLAN:Ms. Luna is a clem 69-year-ol d woman that returns today for recheck left knee pain. Symptoms remain extremely tolerable. Today she rates her pain as very minimal. Occasional crepitus but managed with celebrex and exercise. She continues to care for her grand kids and remain very busy. We will continue with conservati ve measures. She will continue Celebrex and which I will refill her prescripti on when needed. If pain or new symptoms progress and she will consider going forward.Zina carvered following with PCP for ongoing lab work, discussed celebrex potential side effects. Just had recent lab work and everything looked okay.- Risks of NSAIDs discussed including GI upset, GI bleeding, renal and hepatic risks and the risks of cardiovasc ular disease and stroke. Warned patient not to take with other NSAIDs including OTC NSAIDs. Tylenol ok. Continue to follow with PCP for routine labwork to ensure stable kidney/hep atic function. She may follow-up in 1 year with updated xrays. [id number] DOROTHEA MARTE PA-C PULMONARY [address] [facility], [address] [place] [address] 11/09/2024 10:51:26 11/09/2024 14:41:05 Severe persistent asthma [id number] J45.50 Continue current medication regimen. Patient has had significan t improvemen t in symptoms with Fasenra. No signs of acute infection. Bronchiectasis 46330222 J47.9 continue airway clearance. 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 BAL fungal culture negative. Central Bronchiect asis with mucous plugging. Chronic ob structive pulmonary disease 51297587 J44.9 Asthma COPD overlap. Continue current medication regimen. Gastroesop hageal reflux disease without esophagitis 839676190 K21.9 Continue PPI daily. [id number] ТАТЬЯНА NG PA-C [facility] [address] [place] [address] 12/22/2024 11:27:37 12/22/2024 13:17:54 Tendinitis of hip [id number] M76.892 Osteoarthr itis of left knee joint [id number] 66935 M17.12 ASSESSMENT : DJD LEFT knee PLAN:Ms. Luna is a clem 69-year-ol d woman that returns today for recheck left knee pain. Symptoms remain extremely tolerable. Today she rates her pain as very minimal. Occasional crepitus but managed with celebrex and exercise. She continues to care for her grand kids and remain very busy. She has had an increase in left hip pain, hip abductors, trochanter ic pain with increased activity. We will order some targeted physical therapy to help with her gait and hip abductors. She is considerin g TKA in the fall. She will continue Celebrex and which I will refill her prescripti on when needed. f/u in 3 months for recheck, no new xrays needed Acquired v arus deformity of left knee [id number] 20051 M21.162 Health Concerns Section Related Observation LastModified by Organization Detai ls LastModified Time None Recorded Concern Status LastModified by Organization Details LastModified Time None Recorded Advance Directives Directive None Recorded Payers Insurance Date Sequence Insurance Name Policy Number Policy Aguilar Covered Member ID Aguilar Member ID Guarantor Name 09/07/2024 2 [employer] (MEDICARE SUPPLEMENT) Cheryl Luna [id number] Cheryl Luna 12/20/2024 2 [employer] (MEDICARE SUPPLEMENT) Cheryl Luna [id number] Cheryl Luna 09/07/2024 2 [employer] (MEDICARE SUPPLEMENT) Cheryl Luna [id number] Cheryl Luna 09/07/2024 2 [place] [id number] Cheryl Luna [id number] Cheryl Luna 12/19/2024 1 [place] Cheryl Luna [id number] Cheryl Luna Notes Date Note Type Note Provider Name and Address Organization Details Recorded Time 4 text/html Annual GYNReported bypatient.Menstrual cycle:Normal menses; post menopausal Urinary symptoms:No hematuria; No incontinence Vulva:No genital lesion Vagina:Normal vaginal discharge Breast:No breast pain; No breast lump; No nipple discharge Sexual complaints:No sexual complaints; No pain during intercourse; Normal libido Menopausal Symptoms:No menopausal symptoms; Normal vaginal lubrication Psychological symptoms:No depression; No anxiety; No PMDD 68yo presents for annual exam - Hysterectomy Pap 10/13/18 NormalMammo 01/24/24 BR 1 NegativeColonoscopy??DE XA 07/2018 Family Hx:No family hx of [employer] cancers or problems reported FRANCO SRINIVASAN MD [address] [place], [address], [facility] 04/14/2024 14:21:47 4 text/html Patient has eosinophilic asthma and is treated with Fasenra, montelukast, and Trelegy ellipta 200. Patient states that she was doing well. She was treated for a respiratory tract infection in March. Currently she denies cough, wheezing, or shortness of breath. No nocturnal respiratory symptoms. She has not needed an albuterol inhaler. DOROTHEA MARTE PA-C [address] [place], [address], [facility] 05/08/2024 13:11:00 5 text/html 09/07/24Patient returns today for follow up concerning left knee pain. since previous visit she has continued with conservative measures, celebrex 200 mg daily. She voices no change to her symptoms and no improvement. 02/21/24Pt returns today for follow up concerning left knee pain. She was put on Celebrex at last visit and says it has helped tremendously. She reports no pain. 12-16-24Ms. Jt is a very pleasant 68-year-old woman that returns today for recheck left knee pain. Again, most of her difficulties are in the medial aspect. She has continued Celebrex as well as low impact aerobic activity since her last visit in August. Again, symptoms are extremely tolerable. Today she rates her pain a 0/10. She continues to care for her grandkids and remain very busy. 08-17-23:Ms. Luna returns today for a recheck of her left knee pain. Primary location of her pain is medial at times. She denies posterior pain. She rates her pain scale a 4/10 on average. She does report of some popping and cracking at times. She does endorse night pain.She was last seen on 08/11/2022 where she was initiated Celebrex and she notes decreased her walking significantly. She notes that Celebrex helped her symptoms significantly.Currently , things are very tolerable. She is pleased with her current regimen. 98-77-90Wlzcymu year history of LEFT knee pain. No specific trauma or other inciting event. Primary location of pain: medialPosterior pain: No posterior painSeverity of pain: 5/10 on averageMechanical symptoms: occasionalCrepitus: Occasional crepitus.Effusions: Occasional effusionsFrequency of symptoms: dailyNight/rest pain: yesExacerbating factors: Prolonged walking, or at night. Denies pain with ROM or stairs.Subjective instability: NoFalls: No Prior treatment:Provider: noneNSAIDs: OTC OTC aleve alternating with tylenol PRN marginal relief.Narcotic medication: noSteroid injections: noViscosupplementation: noPT: NoBraces: noAmbulatory aids/assistive device: nonePrior surgery on knee: none ТАТЬЯНА NG PA-C [address] [place], [address], [facility] 09/07/2024 11:29:33 5 text/html Patient has eosinophilic asthma and is treated with Fasenra, montelukast, and Trelegy ellipta 200. Patient states that she was doing well. Currently she denies cough, wheezing, or shortness of breath. No nocturnal respiratory symptoms. She has not needed an albuterol inhaler. She was treated for pneumonia a few months ago. Respiratory symptoms returned to baseline. DOROTHEA MARTE PA-C [address] [place], [address], [facility] 11/09/2024 14:27:52 5 text/html 12/22/24Patient returns today for follow up concerning left knee pain. 09/07/24Patient returns today for follow up concerning left knee pain. since previous visit she has continued with conservative measures, celebrex 200 mg daily. She voices no change to her symptoms and no improvement. 02/21/24Pt returns today for follow up concerning left knee pain. She was put on Celebrex at last visit and says it has helped tremendously. She reports no pain. 5-3-24Ms. Jt is a very pleasant 68-year-old woman that returns today for recheck left knee pain. Again, most of her difficulties are in the medial aspect. She has continued Celebrex as well as low impact aerobic activity since her last visit in August. Again, symptoms are extremely tolerable. Today she rates her pain a 0/10. She continues to care for her grandkids and remain very busy. 08-17-23:Ms. Luna returns today for a recheck of her left knee pain. Primary location of her pain is medial at times. She denies posterior pain. She rates her pain scale a 4/10 on average. She does report of some popping and cracking at times. She does endorse night pain.She was last seen on 08/11/2022 where she was initiated Celebrex and she notes decreased her walking significantly. She notes that Celebrex helped her symptoms significantly.Currently , things are very tolerable. She is pleased with her current regimen. 94-75-86Veovziu year history of LEFT knee pain. No specific trauma or other inciting event. Primary location of pain: medialPosterior pain: No posterior painSeverity of pain: 5/10 on averageMechanical symptoms: occasionalCrepitus: Occasional crepitus.Effusions: Occasional effusionsFrequency of symptoms: dailyNight/rest pain: yesExacerbating factors: Prolonged walking, or at night. Denies pain with ROM or stairs.Subjective instability: NoFalls: No Prior treatment:Provider: noneNSAIDs: OTC OTC aleve alternating with tylenol PRN marginal relief.Narcotic medication: noSteroid injections: noViscosupplementation: noPT: NoBraces: noAmbulatory aids/assistive device: nonePrior surgery on knee: none 12/22/24Patient returns today for follow up concerning left knee pain.She reports a recent fall in OCTOBER 2024, landed on her left knee direct blow to concrete.patient states that she's been having constant pains, while weightbearing.Pain is present within the left knee joint. Has not trailed with CSI for the left knee, but is interested in discussing today the next step.09/07/24Patient returns today for follow up concerning left knee pain. since previous visit she has continued with conservative measures, celebrex 200 mg daily. She voices no change to her symptoms and no improvement. 02/21/24Pt returns today for follow up concerning left knee pain. She was put on Celebrex at last visit and says it has helped tremendously. She reports no pain. 24Ms. Jt is a very pleasant 68-year-old woman that returns today for recheck left knee pain. Again, most of her difficulties are in the medial aspect. She has continued Celebrex as well as low impact aerobic activity since her last visit in August. Again, symptoms are extremely tolerable. Today she rates her pain a 0/10. She continues to care for her grandkids and remain very busy. 08-17-23:Ms. Luna returns today for a recheck of her left knee pain. Primary location of her pain is medial at times. She denies posterior pain. She rates her pain scale a 4/10 on average. She does report of some popping and cracking at times. She does endorse night pain.She was last seen on 08/11/2022 where she was initiated Celebrex and she notes decreased her walking significantly. She notes that Celebrex helped her symptoms significantly.Currently , things are very tolerable. She is pleased with her current regimen. 15-32-59Wavimyb year history of LEFT knee pain. No specific trauma or other inciting event. Primary location of pain: medialPosterior pain: No posterior painSeverity of pain: 5/10 on averageMechanical symptoms: occasionalCrepitus: Occasional crepitus.Effusions: Occasional effusionsFrequency of symptoms: dailyNight/rest pain: yesExacerbating factors: Prolonged walking, or at night. Denies pain with ROM or stairs.Subjective instability: NoFalls: No Prior treatment:Provider: noneNSAIDs: OTC OTC aleve alternating with tylenol PRN marginal relief.Narcotic medication: noSteroid injections: noViscosupplementation: noPT: NoBraces: noAmbulatory aids/assistive device: nonePrior surgery on knee: none 12/22/24Patient returns today for follow up concerning left knee pain. 09/07/24Patient returns today for follow up concerning left knee pain. since previous visit she has continued with conservative measures, celebrex 200 mg daily. She voices no change to her symptoms and no improvement. 02/21/24Pt returns today for follow up concerning left knee pain. She was put on Celebrex at last visit and says it has helped tremendously. She reports no pain. 24Ms. Jt is a very pleasant 68-year-old woman that returns today for recheck left knee pain. Again, most of her difficulties are in the medial aspect. She has continued Celebrex as well as low impact aerobic activity since her last visit in August. Again, symptoms are extremely tolerable. Today she rates her pain a 0/10. She continues to care for her grandkids and remain very busy. 08-17-23:Ms. Luna returns today for a recheck of her left knee pain. Primary location of her pain is medial at times. She denies posterior pain. She rates her pain scale a 4/10 on average. She does report of some popping and cracking at times. She does endorse night pain.She was last seen on 08/11/2022 where she was initiated Celebrex and she notes decreased her walking significantly. She notes that Celebrex helped her symptoms significantly.Currently , things are very tolerable. She is pleased with her current regimen. 77-30-48Uiqrzam year history of LEFT knee pain. No specific trauma or other inciting event. Primary location of pain: medialPosterior pain: No posterior painSeverity of pain: 5/10 on averageMechanical symptoms: occasionalCrepitus: Occasional crepitus.Effusions: Occasional effusionsFrequency of symptoms: dailyNight/rest pain: yesExacerbating factors: Prolonged walking, or at night. Denies pain with ROM or stairs.Subjective instability: NoFalls: No Prior treatment:Provider: noneNSAIDs: OTC OTC aleve alternating with tylenol PRN marginal relief.Narcotic medication: noSteroid injections: noViscosupplementation: noPT: NoBraces: noAmbulatory aids/assistive device: nonePrior surgery on knee: none 12/22/24Patient returns today for follow up concerning left knee pain.Constant, dull aches, present in the Left knee joint, this pain has present for a couple of weeks. Patient states that her most recent fall was in OCTOBER 2024, Direct blow to the left knee/[place]. Has been experiencing these pains ever since. She states that while weightbearing, she has dull aches, and pain that radiates down and upwards. 09/07/24Patient returns today for follow up concerning left knee pain. since previous visit she has continued with conservative measures, celebrex 200 mg daily. She voices no change to her symptoms and no improvement. 02/21/24Pt returns today for follow up concerning left knee pain. She was put on Celebrex at last visit and says it has helped tremendously. She reports no pain. 12-16-24Ms. Jt is a very pleasant 68-year-old woman that returns today for recheck left knee pain. Again, most of her difficulties are in the medial aspect. She has continued Celebrex as well as low impact aerobic activity since her last visit in August. Again, symptoms are extremely tolerable. Today she rates her pain a 0/10. She continues to care for her grandkids and remain very busy. 08-17-23:Ms. Luna returns today for a recheck of her left knee pain. Primary location of her pain is medial at times. She denies posterior pain. She rates her pain scale a 4/10 on average. She does report of some popping and cracking at times. She does endorse night pain.She was last seen on 08/11/2022 where she was initiated Celebrex and she notes decreased her walking significantly. She notes that Celebrex helped her symptoms significantly.Currently , things are very tolerable. She is pleased with her current regimen. 25-77-74Lfkenua year history of LEFT knee pain. No specific trauma or other inciting event. Primary location of pain: medialPosterior pain: No posterior painSeverity of pain: 5/10 on averageMechanical symptoms: occasionalCrepitus: Occasional crepitus.Effusions: Occasional effusionsFrequency of symptoms: dailyNight/rest pain: yesExacerbating factors: Prolonged walking, or at night. Denies pain with ROM or stairs.Subjective instability: NoFalls: No Prior treatment:Provider: noneNSAIDs: OTC OTC aleve alternating with tylenol PRN marginal relief.Narcotic medication: noSteroid injections: noViscosupplementation: noPT: NoBraces: noAmbulatory aids/assistive device: nonePrior surgery on knee: none 12/22/24Patient returns today for follow up concerning left knee pain.She reports a recent fall in OCTOBER 2024, landed on her left knee direct blow to concrete.patient states that she's been having constant pains, while weightbearing.Pain is present within the left knee joint. Has not trailed with CSI for the left knee, but is interested in discussing today the next step.09/07/24Patient returns today for follow up concerning left knee pain. since previous visit she has continued with conservative measures, celebrex 200 mg daily. She voices no change to her symptoms and no improvement. 02/21/24Pt returns today for follow up concerning left knee pain. She was put on Celebrex at last visit and says it has helped tremendously. She reports no pain. 24Ms. Jt is a very pleasant 68-year-old woman that returns today for recheck left knee pain. Again, most of her difficulties are in the medial aspect. She has continued Celebrex as well as low impact aerobic activity since her last visit in August. Again, symptoms are extremely tolerable. Today she rates her pain a 0/10. She continues to care for her grandkids and remain very busy. 08-17-23:Ms. Luna returns today for a recheck of her left knee pain. Primary location of her pain is medial at times. She denies posterior pain. She rates her pain scale a 4/10 on average. She does report of some popping and cracking at times. She does endorse night pain.She was last seen on 08/11/2022 where she was initiated Celebrex and she notes decreased her walking significantly. She notes that Celebrex helped her symptoms significantly.Currently , things are very tolerable. She is pleased with her current regimen. [id number] year history of LEFT knee pain. No specific trauma or other inciting event. Primary location of pain: medialPosterior pain: No posterior painSeverity of pain: 5/10 on averageMechanical symptoms: occasionalCrepitus: Occasional crepitus.Effusions: Occasional effusionsFrequency of symptoms: dailyNight/rest pain: yesExacerbating factors: Prolonged walking, or at night. Denies pain with ROM or stairs.Subjective instability: NoFalls: No Prior treatment:Provider: noneNSAIDs: OTC OTC aleve alternating with tylenol PRN marginal relief.Narcotic medication: noSteroid injections: noViscosupplementation: noPT: NoBraces: noAmbulatory aids/assistive device: nonePrior surgery on knee: none 12/22/24Patient returns today for follow up concerning left knee pain. 09/07/24Patient returns today for follow up concerning left knee pain. since previous visit she has continued with conservative measures, celebrex 200 mg daily. She voices no change to her symptoms and no improvement. 02/21/24Pt returns today for follow up concerning left knee pain. She was put on Celebrex at last visit and says it has helped tremendously. She reports no pain. 12-16-24Ms. Jt is a very pleasant 68-year-old woman that returns today for recheck left knee pain. Again, most of her difficulties are in the medial aspect. She has continued Celebrex as well as low impact aerobic activity since her last visit in August. Again, symptoms are extremely tolerable. Today she rates her pain a 0/10. She continues to care for her grandkids and remain very busy. 08-17-23:Ms. Luna returns today for a recheck of her left knee pain. Primary location of her pain is medial at times. She denies posterior pain. She rates her pain scale a 4/10 on average. She does report of some popping and cracking at times. She does endorse night pain.She was last seen on 08/11/2022 where she was initiated Celebrex and she notes decreased her walking significantly. She notes that Celebrex helped her symptoms significantly.Currently , things are very tolerable. She is pleased with her current regimen. [id number] year history of LEFT knee pain. No specific trauma or other inciting event. Primary location of pain: medialPosterior pain: No posterior painSeverity of pain: 5/10 on averageMechanical symptoms: occasionalCrepitus: Occasional crepitus.Effusions: Occasional effusionsFrequency of symptoms: dailyNight/rest pain: yesExacerbating factors: Prolonged walking, or at night. Denies pain with ROM or stairs.Subjective instability: NoFalls: No Prior treatment:Provider: noneNSAIDs: OTC OTC aleve alternating with tylenol PRN marginal relief.Narcotic medication: noSteroid injections: noViscosupplementation: noPT: NoBraces: noAmbulatory aids/assistive device: nonePrior surgery on knee: none ТАТЬЯНА NG PA-C [address] [place], [address], [facility] 12/22/2024 12:33:14 OBGyn Episode No OBEpisode recorded.
[2025-01-09 10:03] VITALS: BP 103/59; PULSE 80; RESP 16; TEMP 36.7; O2SAT 97
[2025-01-09] MEDS: BENRALIZUMAB 30 MG SUBCUT (10:03)
[2025-01-09 10:15] VITALS: PULSE 73; O2SAT 98
== END 2025-01-09 10:15 | disposition home or self-care (01) ==
LOC: INF 09:57
PROVIDERS: PCP Internal Medicine Adolescent Medicine; Visit Provider Physician Assistant
DX: J45.901 Unspecified asthma with (acute) exacerbation (principal)
CPT/HCPCS: 96372; J0517

== ENCOUNTER 2025-01-24 10:00 | Outpatient (RCR) | payer MEDICARE, OTHER, SELFPAY | END 2025-01-24 23:59 | disposition home or self-care (01) | LOC: PT 10:00 | PROVIDERS: PCP Internal Medicine Adolescent Medicine; Visit Provider Physician Assistant | DX: M76.892 Other specified enthesopathies of left lower limb, excluding foot (principal) | CPT/HCPCS: 97110 ==

== ENCOUNTER 2025-02-13 10:03 | Outpatient (RCR) | payer MEDICARE, OTHER, SELFPAY | END 2025-02-13 23:59 | disposition home or self-care (01) | LOC: PT 10:03 | PROVIDERS: PCP Internal Medicine Adolescent Medicine; Visit Provider Physician Assistant | DX: M76.892 Other specified enthesopathies of left lower limb, excluding foot (principal) | CPT/HCPCS: 97110 ==

== ENCOUNTER 2025-04-06 12:26 | Outpatient (CLI) | payer MEDICARE, OTHER, SELFPAY ==
--- OUTSIDE RECORDS SUMMARY | 2025-02-19 09:12 | XMS_ITS | Encounter Summary ---
Author Organization [facility] Address [address] [place] [address] Care Team Providers Care Engineering Program Analyst Name Role Phone Rolanda Price MD Primary Care Provider Reason for Referral * Diagnostic Imaging (Routine) - Closed Specialty Diagnoses / Procedures Referred By Edy chavarria Referred To Contact Radiology Diagnoses Visit for screening mammogram Procedures Mammo Screening Digital Tomosynthesis Bilateral With CAD Rolanda Price MD [address] [place] [address] Phone: tel: fax: Referral ID Status Reason Start Date Expiration Date Visits Re quested Visits Authorized [id number] Closed 12/25/2024 03/26/2026 1 1 Reason for Visit * Diagnostic Imaging (Routine) - Closed Specialty Diagnoses / Procedures Referred By Edy chavarria Referred To Contact Radiology Diagnoses Visit for screening mammogram Procedures Mammo Screening Digital Tomosynthesis Bilateral With CAD Rolanda Price MD [address] [place] [address] Phone: tel: fax: Referral ID Status Reason Start Date Expiration Date Visits Re quested Visits Authorized [id number] Closed 12/25/2024 03/26/2026 1 1 Encounter Details Date Type Department Care Team (Latest Contact Info) Description 02/19/2025 9:12 AM EDT - 02/19/2025 11:59 PM EDT Hospital Encounter [facility] [address] [place] [address] Rolanda Price MD [address] [place] [address] Visit for screening mammogram Discharge Disposition: Home or Self Care Social History Tobacco Use Types Packs/Day Years Used Date Smoking Tobacco: Never Assessed Comments No Sex and Gender Information Value Date Recorded Sex Assigned at Not on file Legal Sex Female 10:02 AM EDT Gender Identity Not on file Sexual Orientation Not on file documented as of this encounter Plan of Treatment Not on file documented as of this encounter Procedures Procedure Name Priority Date/Time Associated Diagnosis Comments MAMMO SCREENING DIGITAL TOMOSYNTHESIS BILATERAL W CAD Routine 02/19/2025 9:34 AM EDT Visit for screening mammogram documented in this encounter Results * Mammo Screening Digital Tomosynthesis Bilateral With CAD (02/19/2025 9:34 AM EDT) Anatomical Region Laterality Modality Breast N/A Mammography 02/20/2025 5:25 PM EDT Impressions 02/20/2025 5:27 PM EDT No findings suspicious for malignancy. ACR BI-RADS CATEGORY: 1, NEGATIVE RECOMMENDATION: Yearly mammogram, yearly clinical breast exam, and encourage self breast awareness. CAD was used. The standard false negative rate of mammography is between 10% and 25%. Complex patterns or increased breast density will markedly elevate the false negative rate of mammography. A letter, in lay terminology, with the results of this exam will be mailed to the patient. If there is a palpable area of concern, biopsy should be considered regardless of imaging findings. 02/20/2025 5:27 PM by Amanda Martinez MD on Narrative 02/20/2025 5:27 PM EDT ROUTINE DIGITAL SCREENING MAMMOGRAM WITH TOMOSYNTHESIS HISTORY: Routine screening. IMAGE COMPARISON: Extending to 2021. TECHNIQUE: Low dose full field digital breast tomosynthesis imaging was performed with 2D and 3D acquisitions consisting of bilateral CC and MLO views. FINDINGS: There are scattered fibroglandular densities. The fibroglandular pattern appears stable. There is no mass, worrisome microcalcifications, or architectural distortion to suggest development of malignancy. us Rolanda Price MD IMG MAMMOGRAPHY ORDERA BLES Final Result documented in this encounter Visit Diagnoses Diagnosis Visit for screening mammogram documented in this encounter Care Teams Engineering Program Analyst Relationship Specialty Start Date End Date Rolanda Price MD [address] [place] [address] PCP - General 02/15/25 documented as of this encounter
--- OUTSIDE RECORDS SUMMARY | 2025-04-06 12:29 | XMS_ITS | Clinical Summary ---
Author Organization [facility] Address [address] [place] [address] Care Team Providers Care Test Desk Supervisor Name Role Phone Rolanda Price MD Primary Care Provider Allergies No known active allergies Encounters Date Type Department Care Team Description 02/19/2025 9:12 AM EDT - 02/19/2025 11:59 PM EDT Hospital Encounter [facility] [address] [place] [address] Rolanda Price MD Visit for screening mammogram Discharge Disposition: Home or Self Care 02/19/2025 Travel from Last 3 Months Family History Medical History Relation Name Comments Breast cancer Neg Hx Ovarian cancer Neg Hx Social History Tobacco Use Types Packs/Day Years Used Date Smoking Tobacco: Never Assessed Comments No Sex and Gender Information Value Date Recorded Sex Assigned at Not on file Legal Sex Female 10:02 AM EDT Gender Identity Not on file Sexual Orientation Not on file Plan of Treatment Health Maintenance Due Date Last Done Comments ANNUAL WELLNESS VISIT 1956 DXA SCAN 1956 HEPATITIS C SCREENING 1956 COLOGUARD 2001 COLON CANCER SCREENING 5 YEA R SIGMOIDOSCOPY 2001 COLONOSCOPY 2001 COL[address] CANCER SCREENING 2001 CT COLONOGRAPHY 2001 FECAL OCCULT BLOOD TEST 2001 FIT Testing (1 year) 2001 ZOSTER VACCINE (2 of 2) 08/02/2023 06/07/2023, 05/16 COVID-19 Vaccine (2023-2 5 season) 2024 07/04/2021, 10/04/2020, 09/04/2020 INFLUENZA VACCINE 05/16/2025 05/08/2024, , 05/16/2023, Additional history exists MAMMOGRAM 02/19/2027 02/19/2025, 01/14, 01/07/2023, Additional history exists TDAP/TD VACCINES (2 - Td or Tdap) 07/01/2032 022 Pneumococcal Vaccine 50+ Completed 10/27/2021, 04/2020 Procedures Procedure Name Priority Date/Time Associated Diagnosis Comments MAMMO SCREENING DIGITAL TOMOSYNTHESIS BILATERAL W CAD Routine 02/19/2025 9:34 AM EDT Visit for screening mammogram from Last 3 Months Results * Mammo Screening Digital Tomosynthesis Bilateral [...] architectural distortion to suggest development of malignancy. Rolanda Price MD IMG MAMMOGRAPHY ORDERA BLES Final Result from Last 3 Months Insurance MEDICARE A & B Member Subscriber Plan / Payer (Ef fective 2021-Present) Name:CherylCheryl Member ID:[id number] Relation to Subscriber:Self Name:LunaCheryl Subscriber ID:[id number] Payer ID:[id number] Group ID:Not on file Type:Not on file Address: [address] Care Teams Test Desk Supervisor Relationship Specialty Start Date End Date Rolanda Price MD [address] [place] [address] PCP - General 02/15/25
--- OUTSIDE RECORDS SUMMARY | 2025-04-06 12:30 | XMS_ITS | Clinical Summary ---
Author Organization [facility] Address [address] [place] [address] Care Team Providers Care Mine Geologist Name Role Phone Tha Mai MD Primary Care Provider + [phone] Family History Medical History Relation Name Comments Asthma Mother Atrial fibrillation Mother Stroke Mother Relation Name Status Comments Mother Social History Tobacco Use Types Packs/Day Years Used Date Smoking Tobacco: Never Comments Unknown Sex and Gender Information Value Date Recorded Sex Assigned at Not on file Legal Sex Female 7:38 PM EDT Gender Identity Not on file Sexual Orientation Not on file Last Filed Vital Signs Vital Sign Reading Time Taken Comments Blood Pressure - - Pulse - - Temperature - - Respiratory Rate - - Oxygen Saturation - - Inhaled Oxygen Concentration - - Weight 64.6 kg (142 lb 6 oz) 04/01/2016 9:13 AM EDT Height 156.2 cm (5' 1.5 ) 04/01/2016 9:13 AM EDT Body Mass Index 26.47 04/01/2016 9:13 AM EDT Plan of Treatment Not on file Care Teams Mine Geologist Relationship Specialty Start Date End Date Tha Mai MD [address] [place] [address] PCP - General 12/27/20
--- OUTSIDE RECORDS SUMMARY | 2025-04-06 12:30 | XMS_ITS | Encounter Summary ---
Author Organization [facility] Address [address] [place] [address] Care Team Providers Care Crocheter Hand Name Role Phone Rolanda Price MD Primary Care Provider Encounter Details Date Type Department Care Team (Latest Contact Info) Description 02/19/2025 Travel Social History Tobacco Use Types Packs/Day Years Used Date Smoking Tobacco: Never Assessed Comments No Sex and Gender Information Value Date Recorded Sex Assigned at Not on file Legal Sex Female 10:02 AM EDT Gender Identity Not on file Sexual Orientation Not on file documented as of this encounter Plan of Treatment Not on file documented as of this encounter Visit Diagnoses Not on filedocumented in this encounter Care Teams Crocheter Hand Relationship Specialty Start Date End Date Rolanda Price MD [address] [facility] [address] [place] [address] PCP - General 02/15/25 documented as of this encounter
[2025-04-06] MEDS: BENRALIZUMAB 30 MG SUBCUT (12:35)
[2025-04-06 12:38] VITALS: BP 93/55; PULSE 69; RESP 18; TEMP 37; O2SAT 97
== END 2025-04-06 12:38 | disposition home or self-care (01) ==
LOC: INF 12:28
PROVIDERS: PCP Internal Medicine Adolescent Medicine; Visit Provider Physician Assistant
DX: Z01.89 Encounter for other specified special examinations (principal)
CPT/HCPCS: 96372; J0517

== ENCOUNTER 2025-05-28 09:51 | Outpatient (CLI) | payer MEDICARE, OTHER, SELFPAY ==
--- OUTSIDE RECORDS SUMMARY | 2025-05-28 09:59 | XMS_ITS | Encounter Summary ---
Author Organization [employer] ([place], [place], [place], [place]) Address [address] [place] [address] Care Team Providers Care Pen Or Pencil Assembly Machine Operator Name Role Phone Tha Mai MD Primary Care Provider + [phone] Encounter Details Date Type Department Care Team (Latest Contact Info) Description 05/25/2025 Travel Social History Tobacco Use Types Packs/Day Years Used Date Smoking Tobacco: Never Assessed Comments Unknown Sex and Gender Information Value Date Recorded Sex Assigned at Not on file Legal Sex Female 5:33 PM CDT Gender Identity Not on file Sexual Orientation Not on file documented as of this encounter Plan of Treatment Upcoming Encounters Date Type Department Care Team (Latest Contact Info) Description 06/04/2025 11:30 AM EDT Hospital Encounter [facility] [address] [place] [address] Caitlyn Abdi MD [address] [place] [phone] 06/04/2025 11:30 AM EDT - 06/04/2025 1:40 PM EDT Surgery [facility] [address] [place] [address] Caitlyn Abdi MD [address] [place] [phone] (LT TOTAL KNEE ARTHROPLASTY) Scheduled Procedures Name Priority Associated Diagnoses Date/Ti me ARTHROPLASTY, KNEE, UNILATERAL Degenerative arthritis of left knee 06/04/2025 11:30 AM EDT documented as of this encounter Goals Goal Patient Goal Type Associated Problems Recent Progress Patient-Stated? Author Autogenerat ed Goal Care Plan Autogenerated Problem No Debby Bermudez documented as of this encounter Visit Diagnoses Not on filedocumented in this encounter Additional Health Concerns Active Problems Noted Date Diagnosed Date Autogenerated Problem 04/25/2025 documented as of this encounter Care Teams Pen Or Pencil Assembly Machine Operator Relationship Specialty Start Date End Date Tha Mai MD [address] [place] [address] [place] [address] PCP - General Adolescent Medicine 05/25/25 documented as of this encounter
--- OUTSIDE RECORDS SUMMARY | 2025-05-28 09:59 | XMS_ITS | Referral Summary ---
Author Organization [employer] ([place], [place], [place], [place]) Address [address] [place] [address] Care Team Providers Care Web Programmer Name Role Phone Tha Mai MD Primary Care Provider + [phone] Encounters Date Type Department Care Team Description 05/25/2025 Travel from Last 3 Months Social History Tobacco Use Types Packs/Day Years Used Date Smoking Tobacco: Never Assessed Comments Unknown Sex and Gender Information Value Date Recorded Sex Assigned at Not on file Legal Sex Female 5:33 PM CDT Gender Identity Not on file Sexual Orientation Not on file Plan of Treatment Upcoming Encounters Date Type Department Care Team (Latest Contact Info) Description 06/04/2025 11:30 AM EDT Hospital Encounter [facility] [address] [place] [address] Caitlyn Abdi MD [address] [place] [phone] 06/04/2025 11:30 AM EDT - 06/04/2025 1:40 PM EDT Surgery [facility] [address] [place] [phone] Caitlyn Abdi MD [address] [place] [address] (LT TOTAL KNEE ARTHROPLASTY) Scheduled Procedures Name Priority Associated Diagnoses Date/Ti me ARTHROPLASTY, KNEE, UNILATERAL Degenerative arthritis of left knee 06/04/2025 11:30 AM EDT Goals Goal Patient Goal Type Associated Problems Recent Progress Patient-Stated? Author Autogenerat ed Goal Care Plan Autogenerated Problem No Debby Bermudez Additional Health Concerns Active Problems Noted Date Diagnosed Date Autogenerated Problem 04/25/2025 Insurance MEDICARE PART A B Care Teams Web Programmer Relationship Specialty Start Date End Date Tha Mai MD [address] [place] [address] [place] [address] PCP - General Adolescent Medicine 05/25/25
--- OUTSIDE RECORDS SUMMARY | 2025-05-28 09:59 | XMS_ITS | Clinical Summary ---
Author Organization [facility] Address [address] [place] [address] Care Team Providers Care Development Chemist Name Role Phone Tha Mai MD Primary Care Provider + [phone] Family History Medical History Relation Name Comments [...] of Treatment Not on file Care Teams Development Chemist Relationship Specialty Start Date End Date Tha Mai MD [address] [place] [address] PCP - General 12/27/20
--- OUTSIDE RECORDS SUMMARY | 2025-05-28 09:59 | XMS_ITS | Clinical Summary ---
Author Organization [employer] ([place], [place], [place], [place]) Address [address] [place] [address] Care Team Providers Care Senior Software Developer Name Role Phone Tha Mai MD Primary Care Provider + [phone] Encounters Date Type Department Care Team Description [...] Description 06/04/2025 11:30 AM EDT Hospital Encounter [facility] [address] [place] [phone] Caitlny Abdi MD [address] [place] [address] 06/04/2025 11:30 AM EDT - 06/04/2025 1:40 PM EDT Surgery [facility] Operating [address] [place] [phone] Caitlyn Abdi MD [address] [place] [phone] (LT TOTAL KNEE ARTHROPLASTY) Scheduled Procedures Name [...] Insurance MEDICARE PART A B Care Teams Senior Software Developer Relationship Specialty Start Date End Date Tha Mai MD [address] [place] [address] PCP - General Adolescent Medicine 05/25/25
--- OUTSIDE RECORDS SUMMARY | 2025-05-28 09:59 | XMS_ITS | Clinical Summary ---
Author Organization [facility] Address [address] [place] [address] Care Team Providers Care Shoemaking Cutter Name Role Phone Rolanda Price MD Primary Care Provider Allergies No known active allergies Family History Medical History Relation Name Comments [...] VACCINE (2 of 2) 08/02/2023 06/07/2023, 05/16 INFLUENZA VACCINE 03/16/2025 05/08/2024, , 05/16/2023, Additional history exists COVID-19 Vaccine (2024-2 6 season) 2025 07/04/2021, 10/04/2020, 09/04/2020 MAMMOGRAM 02/19/2027 02/19/2025, 01/14, 01/07/2023, Additional history exists TDAP/TD VACCINES (2 - Td or Tdap) 07/01/2032 022 Pneumococcal Vaccine 50+ Completed 10/27/2021, 04/2020 Procedures Procedure Name Priority Date/Time Associated Diagnosis Comments MAMMO SCREENING DIGITAL TOMOSYNTHESIS BILATERAL W CAD Routine 02/19/2025 9:34 AM EDT Visit for screening mammogram from Last 3 Months or Most Recently Relevant to Health Maintenance Results * Mammo Screening Digital Tomosynthesis Bilateral [...] BLES Final Result from Last 3 Months or Most Recently Relevant to Health Maintenance Insurance MEDICARE A & B Care Teams Shoemaking Cutter Relationship Specialty Start Date End Date Rolanda Price MD [address] [place] [address] PCP - General 02/15/25
[2025-05-28 10:11] VITALS: BP 126/71; PULSE 69; RESP 14; TEMP 36.8; O2SAT 98
[2025-05-28] MEDS: BENRALIZUMAB 30 MG SUBCUT (10:11)
== END 2025-05-28 23:59 | disposition home or self-care (01) ==
LOC: INF 09:52
PROVIDERS: PCP Internal Medicine Adolescent Medicine; Visit Provider Physician Assistant
DX: Z01.89 Encounter for other specified special examinations (principal)
CPT/HCPCS: 96372; J0517

== ENCOUNTER 2025-07-23 09:28 | Outpatient (CLI) | payer MEDICARE, OTHER, SELFPAY ==
[2025-07-23 09:40] VITALS: BP 101/56; PULSE 79; RESP 14; TEMP 36.7; O2SAT 98
[2025-07-23] MEDS: BENRALIZUMAB 30 MG SUBCUT (09:40)
== END 2025-07-23 23:59 | disposition home or self-care (01) ==
LOC: INF 09:28
PROVIDERS: PCP Internal Medicine Adolescent Medicine; Visit Provider Physician Assistant
DX: J45.50 Severe persistent asthma, uncomplicated (principal)
CPT/HCPCS: 96372; J0517

== ENCOUNTER 2025-08-15 11:00 | Outpatient (RCR) | payer MEDICARE, OTHER, SELFPAY | END 2025-08-15 23:59 | disposition home or self-care (01) | LOC: PT 11:00 | PROVIDERS: PCP Internal Medicine Adolescent Medicine; Visit Provider Orthopaedic Surgery | DX: Z96.659 Presence of unspecified artificial knee joint (principal) | CPT/HCPCS: 97110; 97140; 97161 ==